=== PATIENT | male | born 1945 | race Caucasian/White ===

== ENCOUNTER 2018-06-28 19:00 | Inpatient (IN) | payer MEDICAID, MEDICARE, OTHER ==
[~2018-06-28] VITALS: Ht 175.3 cm; Wt 82.3 kg
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
--- NOTE | 2018-06-28 19:34 | RAD ---
CT scan of the head without contrast 06/28/2018 Clinical History: Mental status changes and confusion. Technique: Unenhanced, contiguous, 5 mm axial sections were obtained through the head. One or more of the following individualized dose reduction techniques were utilized for this study: 1. Automated exposure control. 2. Adjustment of the mA and/or kV according to patient size. 3. Use of iterative reconstruction technique. Findings: No previous imaging studies are available for comparison. A left parietal ventriculostomy tube is seen with its tip extending to the left lateral ventricle There is generalized parenchymal atrophy. Areas of decreased attenuation are seen within the periventricular and subcortical white matter of both cerebral hemispheres consistent with areas of small vessel ischemic disease. No acute parenchymal abnormality is seen. No extra-axial fluid collection is noted. No skull fracture is seen. Impression: No acute intracranial abnormality is seen. Electronically signed by: Fernando Ruggiero MD (06/28/2018 7:30 PM) [facility]
--- NOTE | 2018-06-28 19:38 | EKG ---
[address] [address] Test Date: 2018-06-28 Test Time: 19:33:11 Pat Name: ARIAS JUAREZ Department: Room: Gender: M [employer]binder: : 1945 Requested By: RONN CLAYTON Order Number: [id number] Reading MD: Yann Zurita MD Measurements Intervals [place] Rate: 60 P: 49 NV: 154 QRS: -10 QRSD: 104 T: 36 QT: 410 QTc: 410 Interpretive Statements SINUS RHYTHM Electronically Signed On 06-29-2018 10:36:07 CDT by Yann Zurita MD
[2018-06-28 19:57] LABS: AMPHETAMINE/METHAMPHETAMINE NEG (NEG); BARBITURATES NEG (NEG); BENZODIAZEPINES NEG (NEG); CANNABINOIDS NEG (NEG); COCAINE NEG (NEG); METHADONE NEG (NEG); OPIATES NEG (NEG); PHENCYCLIDINE NEG (NEG)
[2018-06-28 20:00] LABS: BACTERIA,URINE 0 /HPF (0-FEW); BILIRUBIN,URINE NEG (NEG); CLARITY,URINE CLEAR; COLOR,URINE YELLOW; GLUCOSE,URINE NEG (NEG); NITRITE,URINE NEG (NEG); RBC,URINE 0 /HPF (0-2); SQUAMOUS EPITHELIAL CELL,UR OCC /LPF; UROBILINOGEN,URINE 0.2 mg/dL (0.2 mg/dL)
[2018-06-28 20:41] LABS: ALBUMIN 3.5 g/dL (3.4-5.0); CALCIUM 9.3 mg/dL (8.5-10.1); CREATININE 0.9 mg/dL (0.7-1.3); DIRECT BILIRUBIN 0.1 mg/dL (0.0-0.2); GFR 82.3; MAGNESIUM 2.4 mg/dL (1.8-2.4); POTASSIUM 4.8 mmol/L (3.5-5.1); TOTAL BILIRUBIN 0.4 mg/dL (0.2-1.0); TOTAL PROTEIN 7.9 g/dL (6.4-8.2)
[2018-06-28 21:37] LABS: BASO % 1 % (0-3); EOS # 0.1 x10^3/uL (0.0-0.7); EOS % 2 % (0-3); HEMATOCRIT 44.5 % (39.0-53.0); HEMOGLOBIN 14.9 g/dL (13.0-17.5); LYMPH # 1.6 x10^3/uL (1.0-4.8); LYMPH % 26 % (24-48); MEAN CORPUSCULAR HEMOGLOBIN 30 pg (25-35); MEAN CORPUSCULAR HGB CONC 34 g/dL (31-37); MEAN CORPUSCULAR VOLUME 89 fL (79-100); MONO # 0.7 x10^3/uL (0.0-1.1); MONO % 12 % (0-9); NEUT # 3.6 x10^3uL (1.8-7.7); NEUT % 59 % (31-73); PLATELET COUNT 151 x10^3/uL (140-400); RED BLOOD COUNT 5.03 x10^6/uL (4.30-5.70); RED CELL DISTRIBUTION WIDTH 14.8 % (11.5-14.5)
[2018-06-28] MEDS ORDERED: SMZ/TMP 800/160MG TABLET. PO ONE (22:15)
[2018-06-28] MEDS: levoFLOXacin 500 MG TABLET PO SCH (22:30)
[2018-06-28 22:39] LABS: SEDIMENTATION RATE 29 (0-15)
[2018-06-28] MEDS ORDERED: MAGNESIUM HYDROXIDE 2,400 MG/30 ML ORAL.SUSP. PO PRN (22:45)
[2018-06-28] MEDS ORDERED: MAG HYDROX/AL HYDROX/SIMETH 30 ML ORAL.SUSP PO PRN (22:45)
[2018-06-28] MEDS ORDERED: METHYL SALICYLATE/MENTHOL TOPICAL OINTMENT 29GM TUBE. TP PRN (22:45)
[2018-06-28] MEDS ORDERED: ACETAMINOPHEN 325 MG TABLET PO PRN ×2 (22:45→23:30)
[2018-06-28 23:14] LABS: VAL ACID 5 mcg/mL (50-100)
[2018-06-28] MEDS ORDERED: OMEG-33 PO (23:19)
[2018-06-28] MEDS ORDERED: FOLI0.8T33 PO (23:19)
[2018-06-28] MEDS ORDERED: DIVA125C2 PO (23:19)
[2018-06-28] MEDS ORDERED: ASPI325T8 PO (23:19)
[2018-06-28] MEDS ORDERED: ACET325T16 PO (23:19)
[2018-06-28] MEDS ORDERED: ESCITALOPRAM OX20 MG PO (23:19)
[2018-06-28] MEDS ORDERED: LISI10TA2 PO (23:19)
[2018-06-28] MEDS ORDERED: CHOL200027 PO (23:19)
[2018-06-28] MEDS ORDERED: MEMA10TA PO (23:19)
[2018-06-28] MEDS ORDERED: ASCO-72 PO (23:19)
[2018-06-28] MEDS ORDERED: CLON1TAB4 PO (23:19)
[2018-06-28 23:29] VITALS: BP 134/80
--- NOTE | 2018-06-28 23:51 | RAD ---
AP portable chest radiograph 06/28/2018 Clinical History: Weakness and shortness of breath. An AP erect portable digital radiograph of the chest was obtained. No previous studies are available for comparison. The cardiac silhouette is mildly enlarged. The thoracic aorta is mildly tortuous. No acute pulmonary infiltrate is seen. No pleural effusion or pneumothorax is noted. Degenerative changes are seen involving the thoracic spine. IMPRESSION: No acute abnormality is seen. Electronically signed by: Fernando Ruggiero MD (06/28/2018 11:47 PM) [facility]
[2018-06-29 05:32] VITALS: BP 129/74
[2018-06-29 07:13] LABS: BASO % 1 % (0-3); EOS # 0.1 x10^3/uL (0.0-0.7); EOS % 1 % (0-3); HEMATOCRIT 44.2 % (39.0-53.0); LYMPH # 1.3 x10^3/uL (1.0-4.8); LYMPH % 17 % (24-48); MEAN CORPUSCULAR HEMOGLOBIN 30 pg (25-35); MEAN CORPUSCULAR HGB CONC 34 g/dL (31-37); MEAN CORPUSCULAR VOLUME 88 fL (79-100); MONO # 0.9 x10^3/uL (0.0-1.1); MONO % 12 % (0-9); NEUT # 5.3 x10^3uL (1.8-7.7); NEUT % 70 % (31-73); PLATELET COUNT 136 x10^3/uL (140-400); RED BLOOD COUNT 5.03 x10^6/uL (4.30-5.70); RED CELL DISTRIBUTION WIDTH 14.6 % (11.5-14.5); WHITE BLOOD COUNT 7.6 x10^3/uL (4.0-11.0)
[2018-06-29 07:31] LABS: CALCIUM 9.6 mg/dL (8.5-10.1); CREATININE 0.9 mg/dL (0.7-1.3); GFR 82.3
[2018-06-29 07:33] LABS: POTASSIUM 4.7 mmol/L (3.5-5.1)
[2018-06-29] MEDS: ASPIRIN 325 MG TABLET PO SCH (07:44)
[2018-06-29] MEDS: levoFLOXacin 500 MG TABLET PO SCH (07:45)
[2018-06-29] MEDS: LISINOPRIL 10 MG TABLET PO SCH (07:45)
[2018-06-29] MEDS: clonazePAM 1 MG TABLET PO SCH ×3 (07:45→20:46)
[2018-06-29] MEDS: CITALOPRAM 20 MG TABLET. PO SCH (07:45)
[2018-06-29] MEDS: OMEGA-3 FATTY ACIDS/FISH OIL 1,000 MG CAPSULE. PO SCH ×2 (07:45→20:45)
[2018-06-29] MEDS: MEMANTINE 10 MG TABLET. PO SCH ×2 (07:45→20:45)
[2018-06-29] MEDS: CHOLECALCIFEROL (VITAMIN D3) 1,000 UNIT TABLET PO SCH (07:45)
[2018-06-29] MEDS: ASCORBIC ACID 500 MG TABLET PO SCH (07:48)
[2018-06-29] MEDS: FOLIC/VIT B COMP W-C (RENAL) TABLET. PO SCH (09:00)
[2018-06-29 15:55] VITALS: BP 140/83
--- NOTE | 2018-06-29 20:43 | PDOC ---
Exam Note: Antony Note: Please also refer to the separate dictated note~for this date of service dictated separately.~Patient seen individually. Discussed the patient with Nursing staff reviewed the chart.~Reviewed interim history and current functioning. Reviewed vital signs,~Labs/ Radiology~and current medications noted below. Continue current treatment with the changes noted in the dictated addendum note Assessment: Vital Signs: Vital Signs Date Time Temp Pulse Resp B/P (MAP) Pulse Ox O2 Delivery O2 Flow Rate FiO2 06/29/18 15:55 98.9 88 20 140/83 (102) 92 Room Air I&O Intake and Output 06/29/18 07:00 # Voids 3 Labs: Laboratory Tests Test 06/28/18 21:15 06/29/18 06:50 06/29/18 19:39 White Blood Count 6.0 x10^3/uL (4.0-11.0) 7.6 x10^3/uL (4.0-11.0) Red Blood Count 5.03 x10^6/uL (4.30-5.70) 5.03 x10^6/uL (4.30-5.70) Hemoglobin 14.9 g/dL (13.0-17.5) 15.0 g/dL (13.0-17.5) Hematocrit 44.5 % (39.0-53.0) 44.2 % (39.0-53.0) Mean Corpuscular Volume 89 fL (79-100) 88 fL (79-100) Mean Corpuscular Hemoglobin 30 pg (25-35) 30 pg (25-35) Mean Corpuscular Hemoglobin Concent 34 g/dL (31-37) 34 g/dL (31-37) Red Cell Distribution Width 14.8 % (11.5-14.5) H 14.6 % (11.5-14.5) H Platelet Count 151 x10^3/uL (140-400) 136 x10^3/uL (140-400) L Neutrophils (%) (Auto) 59 % (31-73) 70 % (31-73) Lymphocytes (%) (Auto) 26 % (24-48) 17 % (24-48) L Monocytes (%) (Auto) 12 % (0-9) H 12 % (0-9) H Eosinophils (%) (Auto) 2 % (0-3) 1 % (0-3) Basophils (%) (Auto) 1 % (0-3) 1 % (0-3) Neutrophils # (Auto) 3.6 x10^3uL (1.8-7.7) 5.3 x10^3uL (1.8-7.7) Lymphocytes # (Auto) 1.6 x10^3/uL (1.0-4.8) 1.3 x10^3/uL (1.0-4.8) Monocytes # (Auto) 0.7 x10^3/uL (0.0-1.1) 0.9 x10^3/uL (0.0-1.1) Eosinophils # (Auto) 0.1 x10^3/uL (0.0-0.7) 0.1 x10^3/uL (0.0-0.7) Basophils # (Auto) 0.0 x10^3/uL (0.0-0.2) 0.0 x10^3/uL (0.0-0.2) Erythrocyte Sedimentation Rate 29 (0-15) H Prothrombin Time 10.2 SEC (9.4-11.4) Prothrombin Time INR 1.0 (0.9-1.1) PTT 25 SEC (23-33) Iron Level 84 ug/dL (65-175) Total Iron Binding Capacity 360 ug/dL (250-450) Iron Saturation 23 % (15-34) Triglycerides Level 201 mg/dL (0-150) H Cholesterol Level 198 mg/dL (0-200) LDL Cholesterol, Calculated 120 mg/dL (0-100) H VLDL Cholesterol, Calculated 40 mg/dL (0-40) Non-HDL Cholesterol Calculated 160 mg/dL (0-129) H HDL Cholesterol 38 mg/dL (40-60) L Cholesterol/HDL Ratio 5.0 Vitamin B12 Level 26 pg/mL (247-911) L 25-Hydroxy Vitamin D Total 24.7 ng/mL (30-100) L Valproic Acid Level 5 mcg/mL (50-100) L Valproic Acid Last Dose Date 06/27/2018 Valproic Acid Last Dose Time 2100 Sodium Level 144 mmol/L (136-145) Potassium Level 4.7 mmol/L (3.5-5.1) Chloride Level 107 mmol/L (98-107) Carbon Dioxide Level 29 mmol/L (21-32) Anion Gap 8 (6-14) Blood Urea Nitrogen 19 mg/dL (8-26) Creatinine 0.9 mg/dL (0.7-1.3) Estimated GFR (Cockcroft-Gault) 82.3 Glucose Level 121 mg/dL (70-99) H Calcium Level 9.6 mg/dL (8.5-10.1) Glucose (Fingerstick) 177 mg/dL (70-99) H Current Medications: Meds: Current Medications Trimethoprim/ Sulfamethoxazole (Bactrim Ds) 1 tab 1X ONCE PO Last administered on 06/28/18at 22:04; Start 06/28/18 at 22:15; Stop 06/28/18 at 22:16 ; Status DC Levofloxacin (Levaquin) 500 mg DAILY PO Last administered on 06/29/18at 07:45; Start 06/28/18 at 22:30 Acetaminophen (Tylenol) 650 mg PRN Q6HRS PRN PO MILD PAIN / TEMP; Start at 22:45; Stop 06/28/18 at 23:49; Status DC Multi-Ingredient Ointment (Analgesic [place]) 1 heriberto PRN QID PRN TP MUSCLE PAIN; Start 06/28/18 at 22:45 Al Hydroxide/Mg Hydroxide (Mylanta Plus Xs) 15 ml PRN AFTMEALHC PRN PO DYSPEPSIA; Start 06/28/18 at 22:45 Magnesium Hydroxide (Milk Of Magnesia) 2,400 mg PRN QHS PRN PO CONSTIPATION; Start 06/28/18 at 22:45 Olanzapine (ZyPREXA ZYDIS) 2.5 mg PRN Q2HR PRN PO PSYCHOSIS Last administered on 06/29/18at 14:48; Start 06/28/18 at 23:30 Clonazepam (KlonoPIN) 1 mg TID PO Last administered on 06/29/18at 14:13; Start 06/29/18 at 09:00 Divalproex Sodium (Depakote Sprinkles) 125 mg QHS PO ; Start 06/29/18 at 21:00 Citalopram Hydrobromide (CeleXA) 40 mg DAILY PO Last administered on 06/29/18at 07:45; Start 06/29/18 at 09:00 Memantine (Namenda) 10 mg BID PO Last administered on 06/29/18at 07:45; Start 06/29/18 at 09:00 Acetaminophen (Tylenol) 650 mg PRN Q4HRS PRN PO PAIN; Start 06/28/18 at 23:30 Aspirin (Mili Aspirin) 325 mg DAILY PO Last administered on 06/29/18at 07:44; Start 06/29/18 at 09:00 Lisinopril (Prinivil) 10 mg DAILY PO Last administered on 06/29/18at 07:45; Start 06/29/18 at 09:00 Ascorbic Acid (Vitamin C) 500 mg DAILY PO Last administered on 06/29/18at 07:48 ; Start 06/29/18 at 09:00 Vitamin D (Vitamin D3) 2,000 unit DAILY PO Last administered on 06/29/18at 07:45 ; Start 06/29/18 at 09:00 Multivit/Ca Carb/ B Cmplx/FA/Prenat (Nephro-Abel) 1 tab DAILY PO ; Start at 09:00 Fish Oil (Fish Oil) 1,000 mg BID PO Last administered on 06/29/18at 07:45; Start 06/29/18 at 09:00 Lactobacillus Rhamnosus (Culturelle) 1 cap BID PO ; Start 06/29/18 at 21:00 Active Scripts Active Reported Mapap (Acetaminophen) 325 Mg Tablet 650 Mg PO PRN Q4HRS PRN Nephro-Abel Tablet (Folic Acid/Vitamin B Comp W-C) 0.8 Mg Tablet 0.4 Mg PO DAILY Clonazepam 1 Mg Tablet 1 Mg PO TID Depakote Sprinkle (Divalproex Sodium) 125 Mg Cap.sprink 125 Mg PO QHS Lisinopril 10 Mg Tablet 10 Mg PO DAILY Namenda (Memantine Hcl) 10 Mg Tablet 10 Mg PO BID [place] 3 1,000 Mg Softgel ([place]-3 Fatty Acids/Fish Oil) 1 Each Capsule 1 Each PO BID Escitalopram Oxalate 20 Mg Tablet 20 Mg PO DAILY Vitamin D3 (Cholecalciferol (Vitamin D3)) 2,000 Unit Tablet 2,000 Unit PO DAILY Aspirin 325 Mg Tablet 325 Mg PO DAILY Vitamin C (Ascorbic Acid) 500 Mg Tablet.er 500 Mg PO DAILY I have reviewed the current psychotropics carefully including drug interactions. Risk benefit ratio favors no change other than as noted in my dictated progress note. Diagnosis: Problems: (1) Change in mental status (2) Anxiety disorder (3) Dementia in Alzheimer's disease with delusions (4) Dementia in Alzheimer's disease with depression (5) Dementia, vascular, with delusions (6) Dementia, vascular, with depression (7) Impulse control disorder CARRIE RAHMAN MD Jun 29, 2018 20:43
[2018-06-29] MEDS: LACTOBACILLUS RHAMNOSUS GG 1 CAPSULE. PO SCH (20:46)
[2018-06-29] MEDS ORDERED: DIVALPROEX 125 MG CAP.SPRINK PO SCH (21:00)
[2018-06-29 23:12] LABS: HEMOGLOBIN A1C 6.6 % (4.8-5.6)
[2018-06-30 05:21] VITALS: BP 112/55
[2018-06-30 07:25] VITALS: BP 112/75
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
[2018-06-30] MEDS: ASPIRIN 325 MG TABLET PO SCH (10:43)
[2018-06-30] MEDS: CHOLECALCIFEROL (VITAMIN D3) 1,000 UNIT TABLET PO SCH (10:43)
[2018-06-30] MEDS: clonazePAM 1 MG TABLET PO SCH ×2 (10:43→14:02)
[2018-06-30] MEDS: OMEGA-3 FATTY ACIDS/FISH OIL 1,000 MG CAPSULE. PO SCH ×2 (10:43→19:39)
[2018-06-30] MEDS: ASCORBIC ACID 500 MG TABLET PO SCH (10:43)
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
[2018-06-30] MEDS: CITALOPRAM 20 MG TABLET. PO SCH (10:44)
[2018-06-30] MEDS: LACTOBACILLUS RHAMNOSUS GG 1 CAPSULE. PO SCH ×2 (10:44→19:38)
[2018-06-30] MEDS: MEMANTINE 10 MG TABLET. PO SCH ×2 (10:44→19:35)
[2018-06-30] MEDS: LISINOPRIL 10 MG TABLET PO SCH (10:44)
[2018-06-30] MEDS: levoFLOXacin 500 MG TABLET PO SCH (10:44)
[2018-06-30] MEDS: FOLIC/VIT B COMP W-C (RENAL) TABLET. PO SCH (10:46)
[2018-06-30 16:32] VITALS: BP 126/83
[2018-06-30] MEDS: DIVALPROEX 125 MG CAP.SPRINK PO SCH (19:38)
[2018-06-30] MEDS: clonazePAM 0.5 MG TABLET PO SCH (19:39)
--- NOTE | 2018-06-30 21:07 | PDOC ---
Exam Note: Antony Note: Please also refer to the separate dictated note~for this date of service dictated separately.~Patient seen individually. Discussed the patient with Nursing staff reviewed the chart.~Reviewed interim history and current functioning. Reviewed vital signs,~Labs/ Radiology~and current medications noted below. Continue current treatment with the changes noted in the dictated addendum note Assessment: Vital Signs: Vital Signs Date Time Temp Pulse Resp B/P (MAP) Pulse Ox O2 Delivery O2 Flow Rate FiO2 06/30/18 16:32 98.2 69 16 126/83 (97) 92 06/30/18 07:25 Room Air I&O Intake and Output 06/30/18 07:00 Intake Total 480 ml Balance 480 ml Intake Oral 480 ml # Voids 3 Current Medications: Meds: Current Medications Trimethoprim/ Sulfamethoxazole (Bactrim Ds) 1 tab 1X ONCE PO Last administered on 06/28/18at 22:04; Start 06/28/18 at 22:15; Stop 06/28/18 at 22:16 ; Status DC Levofloxacin (Levaquin) 500 mg DAILY PO Last administered on 06/30/18at 10:44; Start 06/28/18 at 22:30 Acetaminophen (Tylenol) 650 mg PRN Q6HRS PRN PO MILD PAIN / TEMP; Start at 22:45; Stop 06/28/18 at 23:49; Status DC Multi-Ingredient Ointment (Analgesic [place]) 1 heriberto PRN QID PRN TP MUSCLE PAIN; Start 06/28/18 at 22:45 Al Hydroxide/Mg Hydroxide (Mylanta Plus Xs) 15 ml PRN AFTMEALHC PRN PO DYSPEPSIA; Start 06/28/18 at 22:45 Magnesium Hydroxide (Milk Of Magnesia) 2,400 mg PRN QHS PRN PO CONSTIPATION; Start 06/28/18 at 22:45 Olanzapine (ZyPREXA ZYDIS) 2.5 mg PRN Q2HR PRN PO PSYCHOSIS Last administered on 06/29/18at 14:48; Start 06/28/18 at 23:30 Clonazepam (KlonoPIN) 1 mg TID PO Last administered on 06/30/18at 14:02; Start 06/29/18 at 09:00; Stop 06/30/18 at 16:48; Status DC Divalproex Sodium (Depakote Sprinkles) 125 mg QHS PO Last administered on 20:46; Start 06/29/18 at 21:00; Stop 06/30/18 at 16:35; Status DC Citalopram Hydrobromide (CeleXA) 40 mg DAILY PO Last administered on 06/30/18 10:44; Start 06/29/18 at 09:00 Memantine (Namenda) 10 mg BID PO Last administered on 06/30/18 19:35; Start 06/29/18 at 09:00 Acetaminophen (Tylenol) 650 mg PRN Q4HRS PRN PO PAIN; Start 06/28/18 at 23:30 Aspirin (Mili Aspirin) 325 mg DAILY PO Last administered on 06/30/18 10:43; Start 06/29/18 at 09:00 Lisinopril (Prinivil) 10 mg DAILY PO Last administered on 06/30/18 10:44; Start 06/29/18 at 09:00 Ascorbic Acid (Vitamin C) 500 mg DAILY PO Last administered on 06/30/18 10:43 ; Start 06/29/18 at 09:00 Vitamin D (Vitamin D3) 2,000 unit DAILY PO Last administered on 06/30/18 10:43 ; Start 06/29/18 at 09:00 Multivit/Ca Carb/ B Cmplx/FA/Prenat (Nephro-Abel) 1 tab DAILY PO Last administered on 06/30/18 10:46; Start 06/29/18 at 09:00 Fish Oil (Fish Oil) 1,000 mg BID PO Last administered on 06/30/18 10:43; Start 06/29/18 at 09:00 Lactobacillus Rhamnosus (Culturelle) 1 cap BID PO Last administered on 19:38; Start 06/29/18 at 21:00 Divalproex Sodium (Depakote Sprinkles) 250 mg QHS PO Last administered on 19:38; Start 06/30/18 at 21:00 Divalproex Sodium (Depakote Sprinkles) 250 mg DAILY PO ; Start 07/01/18 at 09:00 Clonazepam (KlonoPIN) 1 mg BID@0900,1300 PO ; Start 07/01/18 at 09:00 Clonazepam (KlonoPIN) 0.5 mg QHS PO Last administered on 06/30/18at 19:39; Start 06/30/18 at 21:00 Active Scripts Active Reported Mapap (Acetaminophen) 325 Mg Tablet 650 Mg PO PRN Q4HRS PRN Nephro-Abel Tablet (Folic Acid/Vitamin B Comp W-C) 0.8 Mg Tablet 0.4 Mg PO DAILY Clonazepam 1 Mg Tablet 1 Mg PO TID Depakote Sprinkle (Divalproex Sodium) 125 Mg Cap.sprink 125 Mg PO QHS Lisinopril 10 Mg Tablet 10 Mg PO DAILY Namenda (Memantine Hcl) 10 Mg Tablet 10 Mg PO BID [place] 3 1,000 Mg Softgel ([place]-3 Fatty Acids/Fish Oil) 1 Each Capsule 1 Each PO BID Escitalopram Oxalate 20 Mg Tablet 20 Mg PO DAILY Vitamin D3 (Cholecalciferol (Vitamin D3)) 2,000 Unit Tablet 2,000 Unit PO DAILY Aspirin 325 Mg Tablet 325 Mg PO DAILY Vitamin C (Ascorbic Acid) 500 Mg Tablet.er 500 Mg PO DAILY I have reviewed the current psychotropics carefully including drug interactions. Risk benefit ratio favors no change other than as noted in my dictated progress note. Diagnosis: Problems: (1) Change in mental status (2) Anxiety disorder (3) Dementia in Alzheimer's disease with delusions (4) Dementia in Alzheimer's disease with depression (5) Dementia, vascular, with delusions (6) Dementia, vascular, with depression (7) Impulse control disorder CARRIE RAHMAN MD Jun 30, 2018 21:07
[2018-07-01 05:52] VITALS: BP 148/69
[2018-07-01] MEDS ORDERED: clonazePAM 1 MG TABLET PO SCH (09:00)
[2018-07-01] MEDS: LISINOPRIL 10 MG TABLET PO SCH (09:43)
[2018-07-01] MEDS: CHOLECALCIFEROL (VITAMIN D3) 1,000 UNIT TABLET PO SCH (09:43)
[2018-07-01] MEDS: FOLIC/VIT B COMP W-C (RENAL) TABLET. PO SCH (09:43)
[2018-07-01] MEDS: OMEGA-3 FATTY ACIDS/FISH OIL 1,000 MG CAPSULE. PO SCH ×2 (09:43→19:37)
[2018-07-01] MEDS: ASCORBIC ACID 500 MG TABLET PO SCH (09:44)
[2018-07-01] MEDS: MEMANTINE 10 MG TABLET. PO SCH ×2 (09:44→19:37)
[2018-07-01] MEDS: ASPIRIN 325 MG TABLET PO SCH (09:44)
[2018-07-01] MEDS: CITALOPRAM 20 MG TABLET. PO SCH (09:44)
[2018-07-01] MEDS: levoFLOXacin 500 MG TABLET PO SCH (09:44)
[2018-07-01] MEDS: LACTOBACILLUS RHAMNOSUS GG 1 CAPSULE. PO SCH ×2 (09:44→19:37)
[2018-07-01] MEDS: DIVALPROEX 125 MG CAP.SPRINK PO SCH ×2 (09:46→19:38)
[2018-07-01] MEDS: clonazePAM 1 MG TABLET PO SCH (13:16)
[2018-07-01 15:41] VITALS: BP 105/67
[2018-07-01] MEDS: traZODone 50 MG TABLET. PO SCH (19:37)
[2018-07-01] MEDS: SERTRALINE 50 MG TABLET. PO SCH (19:37)
[2018-07-01] MEDS: clonazePAM 0.5 MG TABLET PO SCH (19:39)
--- NOTE | 2018-07-01 20:50 | PDOC ---
Exam Note: Antony Note: Please also refer to the separate dictated note~for this date of service dictated separately.~Patient seen individually. Discussed the patient with Nursing staff reviewed the chart.~Reviewed interim history and current functioning. Reviewed vital signs,~Labs/ Radiology~and current medications noted below. Continue current treatment with the changes noted in the dictated addendum note Assessment: Vital Signs: Vital Signs Date Time Temp Pulse Resp B/P (MAP) Pulse Ox O2 Delivery O2 Flow Rate FiO2 07/01/18 15:41 97.9 73 18 105/67 (80) 96 06/30/18 07:25 Room Air I&O Intake and Output 07/01/18 07:00 Intake Total 120 ml Balance 120 ml Intake Oral 120 ml # Voids 1 Current Medications: Meds: Current Medications Trimethoprim/ Sulfamethoxazole (Bactrim Ds) 1 tab 1X ONCE PO Last administered on 06/28/18at 22:04; Start 06/28/18 at 22:15; Stop 06/28/18 at 22:16 ; Status DC Levofloxacin (Levaquin) 500 mg DAILY PO Last administered on 07/01/18at 09:44; Start 06/28/18 at 22:30 Acetaminophen (Tylenol) 650 mg PRN Q6HRS PRN PO MILD PAIN / TEMP; Start at 22:45; Stop 06/28/18 at 23:49; Status DC Multi-Ingredient Ointment (Analgesic [place]) 1 heriberto PRN QID PRN TP MUSCLE PAIN; Start 06/28/18 at 22:45 Al Hydroxide/Mg Hydroxide (Mylanta Plus Xs) 15 ml PRN AFTMEALHC PRN PO DYSPEPSIA; Start 06/28/18 at 22:45 Magnesium Hydroxide (Milk Of Magnesia) 2,400 mg PRN QHS PRN PO CONSTIPATION; Start 06/28/18 at 22:45 Olanzapine (ZyPREXA ZYDIS) 2.5 mg PRN Q2HR PRN PO PSYCHOSIS Last administered on 06/29/18at 14:48; Start 06/28/18 at 23:30 Clonazepam (KlonoPIN) 1 mg TID PO Last administered on 06/30/18at 14:02; Start 06/29/18 at 09:00; Stop 06/30/18 at 16:48; Status DC Divalproex Sodium (Depakote Sprinkles) 125 mg QHS PO Last administered on 20:46; Start 06/29/18 at 21:00; Stop 06/30/18 at 16:35; Status DC Citalopram Hydrobromide (CeleXA) 40 mg DAILY PO Last administered on 07/01/18 09:44; Start 06/29/18 at 09:00; Stop 07/01/18 at 11:27; Status DC Memantine (Namenda) 10 mg BID PO Last administered on 07/01/18 19:37; Start 06/29/18 at 09:00 Acetaminophen (Tylenol) 650 mg PRN Q4HRS PRN PO PAIN; Start 06/28/18 at 23:30 Aspirin (Mili Aspirin) 325 mg DAILY PO Last administered on 07/01/18 09:44; Start 06/29/18 at 09:00 Lisinopril (Prinivil) 10 mg DAILY PO Last administered on 07/01/18 09:43; Start 06/29/18 at 09:00 Ascorbic Acid (Vitamin C) 500 mg DAILY PO Last administered on 07/01/18 09:44 ; Start 06/29/18 at 09:00 Vitamin D (Vitamin D3) 2,000 unit DAILY PO Last administered on 07/01/18 09:43 ; Start 06/29/18 at 09:00 Multivit/Ca Carb/ B Cmplx/FA/Prenat (Nephro-Abel) 1 tab DAILY PO Last administered on 07/01/18 09:43; Start 06/29/18 at 09:00 Fish Oil (Fish Oil) 1,000 mg BID PO Last administered on 07/01/18 19:37; Start 06/29/18 at 09:00 Lactobacillus Rhamnosus (Culturelle) 1 cap BID PO Last administered on 19:37; Start 06/29/18 at 21:00 Divalproex Sodium (Depakote Sprinkles) 250 mg QHS PO Last administered on 19:38; Start 06/30/18 at 21:00 Divalproex Sodium (Depakote Sprinkles) 250 mg DAILY PO Last administered on 09:46; Start 10/4/18 at 09:00 Clonazepam (KlonoPIN) 1 mg BID@0900,1300 PO Last administered on 07/01/18at 09: 46; Start 07/01/18 at 09:00; Stop 07/01/18 at 11:27; Status DC Clonazepam (KlonoPIN) 0.5 mg QHS PO Last administered on 07/01/18at 19:39; Start 06/30/18 at 21:00; Stop 07/10/18 at 09:00 Sertraline HCl (Zoloft) 50 mg QHS PO Last administered on 07/01/18at 19:37; Start 07/01/18 at 21:00 Clonazepam (KlonoPIN) 0.25 mg DAILY PO ; Start 07/03/18 at 21:00; Stop 07/05/18 at 21:00 Clonazepam (KlonoPIN) 1 mg DAILY@1300 PO Last administered on 07/01/18at 13:16; Start 07/01/18 at 13:00; Stop 07/05/18 at 21:00 Clonazepam (KlonoPIN) 0.5 mg DAILY PO ; Start 07/02/18 at 09:00; Stop 07/03/18 at 21:00 Clonazepam (KlonoPIN) 0.5 mg DAILY@1300 PO ; Start 07/06/18 at 13:00; Stop 07/15 at 21:00 Clonazepam (KlonoPIN) 0.25 mg DAILY@1300 PO ; Start 07/08/18 at 13:00; Stop at 21:00 Clonazepam (KlonoPIN) 0.25 mg HS PO ; Start 07/10/18 at 21:00; Stop 07/12/18 at 09:00 Trazodone HCl (Desyrel) 50 mg QHS PO Last administered on 07/01/18at 19:37; Start 07/01/18 at 21:00 Trazodone HCl (Desyrel) 50 mg PRN QHS PRN PO INSOMNIA; Start 07/01/18 at 11:00 Active Scripts Active Reported Mapap (Acetaminophen) 325 Mg Tablet 650 Mg PO PRN Q4HRS PRN Nephro-Abel Tablet (Folic Acid/Vitamin B Comp W-C) 0.8 Mg Tablet 0.4 Mg PO DAILY Clonazepam 1 Mg Tablet 1 Mg PO TID Depakote Sprinkle (Divalproex Sodium) 125 Mg Cap.sprink 125 Mg PO QHS Lisinopril 10 Mg Tablet 10 Mg PO DAILY Namenda (Memantine Hcl) 10 Mg Tablet 10 Mg PO BID [place] 3 1,000 Mg Softgel ([place]-3 Fatty Acids/Fish Oil) 1 Each Capsule 1 Each PO BID Escitalopram Oxalate 20 Mg Tablet 20 Mg PO DAILY Vitamin D3 (Cholecalciferol (Vitamin D3)) 2,000 Unit Tablet 2,000 Unit PO DAILY Aspirin 325 Mg Tablet 325 Mg PO DAILY Vitamin C (Ascorbic Acid) 500 Mg Tablet.er 500 Mg PO DAILY I have reviewed the current psychotropics carefully including drug interactions. Risk benefit ratio favors no change other than as noted in my dictated progress note. Diagnosis: Problems: (1) Change in mental status (2) Anxiety disorder (3) Dementia in Alzheimer's disease with delusions (4) Dementia in Alzheimer's disease with depression (5) Dementia, vascular, with delusions (6) Dementia, vascular, with depression (7) Impulse control disorder CARRIE RAHMAN MD Jul 01, 2018 20:50
[2018-07-02 05:44] VITALS: BP 106/59
[2018-07-02] MEDS: OMEGA-3 FATTY ACIDS/FISH OIL 1,000 MG CAPSULE. PO SCH ×2 (07:49→19:51)
[2018-07-02] MEDS: levoFLOXacin 500 MG TABLET PO SCH (07:49)
[2018-07-02] MEDS: ASCORBIC ACID 500 MG TABLET PO SCH (07:49)
[2018-07-02] MEDS: FOLIC/VIT B COMP W-C (RENAL) TABLET. PO SCH (07:50)
[2018-07-02] MEDS: ASPIRIN 325 MG TABLET PO SCH (07:50)
[2018-07-02] MEDS: LISINOPRIL 10 MG TABLET PO SCH (07:50)
[2018-07-02] MEDS: LACTOBACILLUS RHAMNOSUS GG 1 CAPSULE. PO SCH ×2 (07:50→19:52)
[2018-07-02] MEDS: CHOLECALCIFEROL (VITAMIN D3) 1,000 UNIT TABLET PO SCH (07:50)
[2018-07-02] MEDS: MEMANTINE 10 MG TABLET. PO SCH ×2 (07:52→19:51)
[2018-07-02] MEDS: DIVALPROEX 125 MG CAP.SPRINK PO SCH ×2 (07:52→19:52)
[2018-07-02] MEDS: clonazePAM 0.5 MG TABLET PO SCH ×2 (07:52→19:52)
[2018-07-02] MEDS: clonazePAM 1 MG TABLET PO SCH (13:04)
[2018-07-02 16:16] VITALS: BP 111/66
[2018-07-02] MEDS: SERTRALINE 50 MG TABLET. PO SCH (19:52)
[2018-07-02] MEDS: traZODone 50 MG TABLET. PO SCH (19:52)
--- NOTE | 2018-07-02 20:15 | PDOC ---
Exam Note: Antony Note: Please also refer to the separate dictated note~for this date of service dictated separately.~Patient seen individually. Discussed the patient with Nursing staff reviewed the chart.~Reviewed interim history and current functioning. Reviewed vital signs,~Labs/ Radiology~and current medications noted below. Continue current treatment with the changes noted in the dictated addendum note Assessment: Vital Signs: Vital Signs Date Time Temp Pulse Resp B/P (MAP) Pulse Ox O2 Delivery O2 Flow Rate FiO2 07/02/18 16:16 97.7 68 20 111/66 (81) 96 Room Air I&O Intake and Output 07/02/18 07:00 Intake Total 960 ml Balance 960 ml Intake Oral 960 ml Current Medications: Meds: Current Medications Trimethoprim/ Sulfamethoxazole (Bactrim Ds) 1 tab 1X ONCE PO Last administered on 06/28/18at 22:04; Start 06/28/18 at 22:15; Stop 06/28/18 at 22:16 ; Status DC Levofloxacin (Levaquin) 500 mg DAILY PO Last administered on 07/02/18at 07:49; Start 06/28/18 at 22:30; Stop 07/02/18 at 16:26; Status DC Acetaminophen (Tylenol) 650 mg PRN Q6HRS PRN PO MILD PAIN / TEMP; Start at 22:45; Stop 06/28/18 at 23:49; Status DC Multi-Ingredient Ointment (Analgesic [place]) 1 heriberto PRN QID PRN TP MUSCLE PAIN; Start 06/28/18 at 22:45 Al Hydroxide/Mg Hydroxide (Mylanta Plus Xs) 15 ml PRN AFTMEALHC PRN PO DYSPEPSIA; Start 06/28/18 at 22:45 Magnesium Hydroxide (Milk Of Magnesia) 2,400 mg PRN QHS PRN PO CONSTIPATION; Start 06/28/18 at 22:45 Olanzapine (ZyPREXA ZYDIS) 2.5 mg PRN Q2HR PRN PO PSYCHOSIS Last administered on 07/02/18at 20:11; Start 06/28/18 at 23:30 Clonazepam (KlonoPIN) 1 mg TID PO Last administered on 06/30/18at 14:02; Start 06/29/18 at 09:00; Stop 06/30/18 at 16:48; Status DC Divalproex Sodium (Depakote Sprinkles) 125 mg QHS PO Last administered on 20:46; Start 06/29/18 at 21:00; Stop 06/30/18 at 16:35; Status DC Citalopram Hydrobromide (CeleXA) 40 mg DAILY PO Last administered on 07/01/18 09:44; Start 06/29/18 at 09:00; Stop 07/01/18 at 11:27; Status DC Memantine (Namenda) 10 mg BID PO Last administered on 07/02/18 19:51; Start 06/29/18 at 09:00 Acetaminophen (Tylenol) 650 mg PRN Q4HRS PRN PO PAIN; Start 06/28/18 at 23:30 Aspirin (Mili Aspirin) 325 mg DAILY PO Last administered on 07/02/18 07:50; Start 06/29/18 at 09:00 Lisinopril (Prinivil) 10 mg DAILY PO Last administered on 07/01/18 09:43; Start 06/29/18 at 09:00 Ascorbic Acid (Vitamin C) 500 mg DAILY PO Last administered on 07/02/18 07:49 ; Start 06/29/18 at 09:00 Vitamin D (Vitamin D3) 2,000 unit DAILY PO Last administered on 07/02/18 07:50 ; Start 06/29/18 at 09:00 Multivit/Ca Carb/ B Cmplx/FA/Prenat (Nephro-Abel) 1 tab DAILY PO Last administered on 07/02/18 07:50; Start 06/29/18 at 09:00 Fish Oil (Fish Oil) 1,000 mg BID PO Last administered on 07/02/18 19:51; Start 06/29/18 at 09:00 Lactobacillus Rhamnosus (Culturelle) 1 cap BID PO Last administered on 19:52; Start 06/29/18 at 21:00 Divalproex Sodium (Depakote Sprinkles) 250 mg QHS PO Last administered on 19:52; Start 06/30/18 at 21:00 Divalproex Sodium (Depakote Sprinkles) 250 mg DAILY PO Last administered on 07:52; Start 07/01/18 at 09:00 Clonazepam (KlonoPIN) 1 mg BID@0900,1300 PO Last administered on 07/01/18at 09: 46; Start 07/01/18 at 09:00; Stop 07/01/18 at 11:27; Status DC Clonazepam (KlonoPIN) 0.5 mg QHS PO Last administered on 07/02/18at 19:52; Start 06/30/18 at 21:00; Stop 07/10/18 at 09:00 Sertraline HCl (Zoloft) 50 mg QHS PO Last administered on 07/02/18 19:52; Start 07/01/18 at 21:00 Clonazepam (KlonoPIN) 0.25 mg DAILY PO ; Start 07/03/18 at 21:00; Stop 07/05/18 at 21:00 Clonazepam (KlonoPIN) 1 mg DAILY@1300 PO Last administered on 07/02/18at 13:04; Start 07/01/18 at 13:00; Stop 07/05/18 at 21:00 Clonazepam (KlonoPIN) 0.5 mg DAILY PO Last administered on 07/02/18at 07:52; Start 07/02/18 at 09:00; Stop 07/03/18 at 21:00 Clonazepam (KlonoPIN) 0.5 mg DAILY@1300 PO ; Start 07/06/18 at 13:00; Stop 07/15 at 21:00 Clonazepam (KlonoPIN) 0.25 mg DAILY@1300 PO ; Start 07/08/18 at 13:00; Stop at 21:00 Clonazepam (KlonoPIN) 0.25 mg HS PO ; Start 07/10/18 at 21:00; Stop 07/12/18 at 09:00 Trazodone HCl (Desyrel) 50 mg QHS PO Last administered on 07/02/18 19:52; Start 07/01/18 at 21:00 Trazodone HCl (Desyrel) 50 mg PRN QHS PRN PO INSOMNIA; Start 07/01/18 at 11:00 Active Scripts Active Reported Mapap (Acetaminophen) 325 Mg Tablet 650 Mg PO PRN Q4HRS PRN Nephro-Abel Tablet (Folic Acid/Vitamin B Comp W-C) 0.8 Mg Tablet 0.4 Mg PO DAILY Clonazepam 1 Mg Tablet 1 Mg PO TID Depakote Sprinkle (Divalproex Sodium) 125 Mg Cap.sprink 125 Mg PO QHS Lisinopril 10 Mg Tablet 10 Mg PO DAILY Namenda (Memantine Hcl) 10 Mg Tablet 10 Mg PO BID [place] 3 1,000 Mg Softgel ([place]-3 Fatty Acids/Fish Oil) 1 Each Capsule 1 Each PO BID Escitalopram Oxalate 20 Mg Tablet 20 Mg PO DAILY Vitamin D3 (Cholecalciferol (Vitamin D3)) 2,000 Unit Tablet 2,000 Unit PO DAILY Aspirin 325 Mg Tablet 325 Mg PO DAILY Vitamin C (Ascorbic Acid) 500 Mg Tablet.er 500 Mg PO DAILY I have reviewed the current psychotropics carefully including drug interactions. Risk benefit ratio favors no change other than as noted in my dictated progress note. Diagnosis: Problems: (1) Change in mental status (2) Anxiety disorder (3) Dementia in Alzheimer's disease with delusions (4) Dementia in Alzheimer's disease with depression (5) Dementia, vascular, with delusions (6) Dementia, vascular, with depression (7) Impulse control disorder CARRIE RAHMAN MD Jul 02, 2018 20:15
--- NOTE | 2018-07-03 04:13 | PN ---
DATE: 07/01/2018 This is a late entry for 07/01/2018 covers elements not covered in my initial note. SUBJECTIVE: I met with the patient in the evening, staffed at a treatment team meeting with the entire team in the morning. The patient is sleeping about 6 hours last night, average 4 hours. His , Jazmín, attended the treatment team meeting in the morning. He has been somewhat impulsive. He has been taking the Klonopin 0.5 mg at bedtime for about 6 months and we will attempt to taper it in due course. UA is negative. REVIEW OF SYSTEMS: Ambulation impaired, in wheelchair. No CV, , pulmonary, eye, ENT system symptoms on review. MENTAL STATUS EXAM: Oriented to himself. Insight, judgment, recent and remote memory, attention, concentration, fund of knowledge poor, consistent with his diagnosis mentioned in my initial note. PLAN: Change Celexa 40 mg a day to Zoloft 50 mg a day. Start trazodone 50 mg at bedtime, may repeat x 1. Maintain Depakote 250 mg b.i.d. Check labs and valproic acid level on 07/03/2018. He remains on Klonopin 1 mg twice a day, 0.5 mg at bedtime and once we have a therapeutic level of Depakote, we will taper the Klonopin. Continue rest unchanged. MAN Ifeanyi RAHMAN MD DR: LEYLA/alexandra JOB#: [id number] / [id number]
[2018-07-03 05:50] VITALS: BP 145/91
[2018-07-03] MEDS: FOLIC/VIT B COMP W-C (RENAL) TABLET. PO SCH (08:05)
[2018-07-03] MEDS: CHOLECALCIFEROL (VITAMIN D3) 1,000 UNIT TABLET PO SCH (08:05)
[2018-07-03] MEDS: ASCORBIC ACID 500 MG TABLET PO SCH (08:05)
[2018-07-03] MEDS: LISINOPRIL 10 MG TABLET PO SCH (08:05)
[2018-07-03] MEDS: OMEGA-3 FATTY ACIDS/FISH OIL 1,000 MG CAPSULE. PO SCH ×2 (08:05→19:58)
[2018-07-03] MEDS: LACTOBACILLUS RHAMNOSUS GG 1 CAPSULE. PO SCH ×2 (08:05→19:58)
[2018-07-03] MEDS: MEMANTINE 10 MG TABLET. PO SCH ×2 (08:05→19:59)
[2018-07-03] MEDS: ASPIRIN 325 MG TABLET PO SCH (08:06)
[2018-07-03] MEDS: DIVALPROEX 125 MG CAP.SPRINK PO SCH ×2 (08:06→19:58)
[2018-07-03] MEDS: clonazePAM 0.5 MG TABLET PO SCH ×3 (08:07→20:01)
[2018-07-03] MEDS: clonazePAM 1 MG TABLET PO SCH (13:33)
[2018-07-03 15:45] VITALS: BP 107/74
[2018-07-03] MEDS: traZODone 50 MG TABLET. PO SCH (19:59)
[2018-07-03] MEDS: SERTRALINE 50 MG TABLET. PO SCH (19:59)
[2018-07-04 06:25] VITALS: BP 106/67
[2018-07-04 07:11] LABS: BASO % 0 % (0-3); EOS # 0.2 x10^3/uL (0.0-0.7); EOS % 3 % (0-3); HEMATOCRIT 41.3 % (39.0-53.0); HEMOGLOBIN 14.3 g/dL (13.0-17.5); LYMPH % 13 % (24-48); MEAN CORPUSCULAR HEMOGLOBIN 30 pg (25-35); MEAN CORPUSCULAR HGB CONC 35 g/dL (31-37); MEAN CORPUSCULAR VOLUME 88 fL (79-100); MONO # 0.8 x10^3/uL (0.0-1.1); MONO % 10 % (0-9); NEUT # 5.7 x10^3uL (1.8-7.7); NEUT % 74 % (31-73); PLATELET COUNT 150 x10^3/uL (140-400); RED BLOOD COUNT 4.72 x10^6/uL (4.30-5.70); RED CELL DISTRIBUTION WIDTH 14.6 % (11.5-14.5); WHITE BLOOD COUNT 7.7 x10^3/uL (4.0-11.0)
[2018-07-04 07:25] LABS: ALBUMIN 3.2 g/dL (3.4-5.0); ALBUMIN/GLOBULIN RATIO 0.8 (1.0-1.7); ALK PHOS 123 U/L (46-116); ALT (SGPT) 36 U/L (16-63); ANION GAP 4 (6-14); AST (SGOT) 27 U/L (15-37); BLOOD UREA NITROGEN 31 mg/dL (8-26); BUN/CREATININE RATIO 31 (6-20); CALCIUM 9.2 mg/dL (8.5-10.1); CARBON DIOXIDE 32 mmol/L (21-32); CHLORIDE 109 mmol/L (98-107); GFR 72.8; GLUCOSE 115 mg/dL (70-99); POTASSIUM 3.8 mmol/L (3.5-5.1); SODIUM 145 mmol/L (136-145); TOTAL BILIRUBIN 0.5 mg/dL (0.2-1.0); TOTAL PROTEIN 7.3 g/dL (6.4-8.2); VAL ACID 19 mcg/mL (50-100)
[2018-07-04] MEDS: DIVALPROEX 125 MG CAP.SPRINK PO SCH ×2 (07:51→19:57)
[2018-07-04] MEDS: CHOLECALCIFEROL (VITAMIN D3) 1,000 UNIT TABLET PO SCH (07:52)
[2018-07-04] MEDS: ASCORBIC ACID 500 MG TABLET PO SCH (07:52)
[2018-07-04] MEDS: OMEGA-3 FATTY ACIDS/FISH OIL 1,000 MG CAPSULE. PO SCH ×2 (07:52→19:55)
[2018-07-04] MEDS: ASPIRIN 325 MG TABLET PO SCH (07:52)
[2018-07-04] MEDS: LISINOPRIL 10 MG TABLET PO SCH (07:52)
[2018-07-04] MEDS: MEMANTINE 10 MG TABLET. PO SCH ×2 (07:52→19:58)
[2018-07-04] MEDS: LACTOBACILLUS RHAMNOSUS GG 1 CAPSULE. PO SCH ×2 (07:53→19:55)
[2018-07-04] MEDS: clonazePAM 0.5 MG TABLET PO SCH ×2 (07:57→19:57)
[2018-07-04] MEDS: FOLIC/VIT B COMP W-C (RENAL) TABLET. PO SCH ×2 (07:58→09:00)
[2018-07-04] MEDS: clonazePAM 1 MG TABLET PO SCH (13:46)
[2018-07-04 15:21] VITALS: BP 125/73
[2018-07-04] MEDS: SERTRALINE 50 MG TABLET. PO SCH (19:57)
[2018-07-04] MEDS: traZODone 50 MG TABLET. PO SCH (19:57)
--- NOTE | 2018-07-04 20:12 | PDOC ---
Exam Note: Antony Note: Late entry for date of service June. Please also refer to the separate dictated note~for this date of service dictated separately.~Patient seen individually. Discussed the patient with Nursing staff reviewed the chart.~ Reviewed interim history and current functioning. Reviewed vital signs,~Labs/ Radiology~and current medications noted below. Continue current treatment with the changes noted in the dictated addendum note Assessment: Vital Signs: VS - Last 72 Hours, by Label Date Time Temp Pulse Resp B/P (MAP) Pulse Ox O2 Delivery O2 Flow Rate FiO2 07/04/18 15:21 97.8 73 18 125/73 (90) 96 07/04/18 07:52 66 106/67 07/04/18 06:25 97.8 66 18 106/67 (80) 94 Room Air 07/03/18 15:45 97.4 77 20 107/74 (85) 97 07/03/18 08:05 54 145/91 07/03/18 05:50 96.4 54 18 145/91 (109) 93 Room Air 07/02/18 16:16 97.7 68 20 111/66 (81) 96 Room Air 07/02/18 05:44 97.7 63 22 106/59 (75) 90 Room Air Vital Signs Date Time Temp Pulse Resp B/P (MAP) Pulse Ox O2 Delivery O2 Flow Rate FiO2 07/04/18 15:21 97.8 73 18 125/73 (90) 96 07/04/18 06:25 Room Air I&O Intake and Output 07/04/18 06:59 Intake Total 220 ml Balance 220 ml Intake Oral 220 ml Labs: Laboratory Tests Test 07/04/18 07:03 White Blood Count 7.7 x10^3/uL (4.0-11.0) Red Blood Count 4.72 x10^6/uL (4.30-5.70) Hemoglobin 14.3 g/dL (13.0-17.5) Hematocrit 41.3 % (39.0-53.0) Mean Corpuscular Volume 88 fL (79-100) Mean Corpuscular Hemoglobin 30 pg (25-35) Mean Corpuscular Hemoglobin Concent 35 g/dL (31-37) Red Cell Distribution Width 14.6 % (11.5-14.5) H Platelet Count 150 x10^3/uL (140-400) Neutrophils (%) (Auto) 74 % (31-73) H Lymphocytes (%) (Auto) 13 % (24-48) L Monocytes (%) (Auto) 10 % (0-9) H Eosinophils (%) (Auto) 3 % (0-3) Basophils (%) (Auto) 0 % (0-3) Neutrophils # (Auto) 5.7 x10^3uL (1.8-7.7) Lymphocytes # (Auto) 1.0 x10^3/uL (1.0-4.8) Monocytes # (Auto) 0.8 x10^3/uL (0.0-1.1) Eosinophils # (Auto) 0.2 x10^3/uL (0.0-0.7) Basophils # (Auto) 0.0 x10^3/uL (0.0-0.2) Sodium Level 145 mmol/L (136-145) Potassium Level 3.8 mmol/L (3.5-5.1) Chloride Level 109 mmol/L (98-107) H Carbon Dioxide Level 32 mmol/L (21-32) Anion Gap 4 (6-14) L Blood Urea Nitrogen 31 mg/dL (8-26) H Creatinine 1.0 mg/dL (0.7-1.3) Estimated GFR (Cockcroft-Gault) 72.8 BUN/Creatinine Ratio 31 (6-20) H Glucose Level 115 mg/dL (70-99) H Calcium Level 9.2 mg/dL (8.5-10.1) Total Bilirubin 0.5 mg/dL (0.2-1.0) Aspartate Amino Transferase (AST) 27 U/L (15-37) Alanine Aminotransferase (ALT) 36 U/L (16-63) Alkaline Phosphatase 123 U/L (46-116) H Total Protein 7.3 g/dL (6.4-8.2) Albumin 3.2 g/dL (3.4-5.0) L Albumin/Globulin Ratio 0.8 (1.0-1.7) L Valproic Acid Level 19 mcg/mL (50-100) L Valproic Acid Last Dose Date Unk Valproic Acid Last Dose Time Unk Current Medications: Meds: Current Medications Trimethoprim/ Sulfamethoxazole (Bactrim Ds) 1 tab 1X ONCE PO Last administered on 06/28/18at 22:04; Start 06/28/18 at 22:15; Stop 06/28/18 at 22:16 ; Status DC Levofloxacin (Levaquin) 500 mg DAILY PO Last administered on 07/02/18at 07:49; Start 06/28/18 at 22:30; Stop 07/02/18 at 16:26; Status DC Acetaminophen (Tylenol) 650 mg PRN Q6HRS PRN PO MILD PAIN / TEMP; Start at 22:45; Stop 06/28/18 at 23:49; Status DC Multi-Ingredient Ointment (Analgesic [place]) 1 heriberto PRN QID PRN TP MUSCLE PAIN; Start 06/28/18 at 22:45 Al Hydroxide/Mg Hydroxide (Mylanta Plus Xs) 15 ml PRN AFTMEALHC PRN PO DYSPEPSIA; Start 06/28/18 at 22:45 Magnesium Hydroxide (Milk Of Magnesia) 2,400 mg PRN QHS PRN PO CONSTIPATION; Start 06/28/18 at 22:45 Olanzapine (ZyPREXA ZYDIS) 2.5 mg PRN Q2HR PRN PO PSYCHOSIS Last administered on 07/04/18at 01:01; Start 06/28/18 at 23:30 Clonazepam (KlonoPIN) 1 mg TID PO Last administered on 06/30/18at 14:02; Start 06/29/18 at 09:00; Stop 06/30/18 at 16:48; Status DC Divalproex Sodium (Depakote Sprinkles) 125 mg QHS PO Last administered on at 20:46; Start 06/29/18 at 21:00; Stop 06/30/18 at 16:35; Status DC Citalopram Hydrobromide (CeleXA) 40 mg DAILY PO Last administered on 07/01/18at 09:44; Start 06/29/18 at 09:00; Stop 07/01/18 at 11:27; Status DC Memantine (Namenda) 10 mg BID PO Last administered on 07/04/18at 19:58; Start 06/29/18 at 09:00 Acetaminophen (Tylenol) 650 mg PRN Q4HRS PRN PO PAIN; Start 06/28/18 at 23:30 Aspirin (Mili Aspirin) 325 mg DAILY PO Last administered on 07/04/18 07:52; Start 06/29/18 at 09:00 Lisinopril (Prinivil) 10 mg DAILY PO Last administered on 07/04/18 07:52; Start 06/29/18 at 09:00 Ascorbic Acid (Vitamin C) 500 mg DAILY PO Last administered on 07/04/18 07:52 ; Start 06/29/18 at 09:00 Vitamin D (Vitamin D3) 2,000 unit DAILY PO Last administered on 07/04/18 07:52 ; Start 06/29/18 at 09:00 Multivit/Ca Carb/ B Cmplx/FA/Prenat (Nephro-Abel) 1 tab DAILY PO Last administered on 07/04/18 09:00; Start 06/29/18 at 09:00 Fish Oil (Fish Oil) 1,000 mg BID PO Last administered on 07/04/18 19:55; Start 06/29/18 at 09:00 Lactobacillus Rhamnosus (Culturelle) 1 cap BID PO Last administered on 19:55; Start 06/29/18 at 21:00 Divalproex Sodium (Depakote Sprinkles) 250 mg QHS PO Last administered on 19:57; Start 06/30/18 at 21:00 Divalproex Sodium (Depakote Sprinkles) 250 mg DAILY PO Last administered on 07:51; Start 07/01/18 at 09:00 Clonazepam (KlonoPIN) 1 mg BID@0900,1300 PO Last administered on 07/01/18 09: 46; Start 07/01/18 at 09:00; Stop 07/01/18 at 11:27; Status DC Clonazepam (KlonoPIN) 0.5 mg QHS PO Last administered on 07/04/18 19:57; Start 06/30/18 at 21:00; Stop 07/10/18 at 09:00 Sertraline HCl (Zoloft) 50 mg QHS PO Last administered on 07/04/18 19:57; Start 07/01/18 at 21:00 Clonazepam (KlonoPIN) 0.25 mg DAILY PO Last administered on 07/04/18 07:57; Start 07/03/18 at 21:00; Stop 07/05/18 at 21:00 Clonazepam (KlonoPIN) 1 mg DAILY@1300 PO Last administered on 07/04/18at 13:46; Start 07/01/18 at 13:00; Stop 07/05/18 at 21:00 Clonazepam (KlonoPIN) 0.5 mg DAILY PO Last administered on 07/03/18at 08:07; Start 07/02/18 at 09:00; Stop 07/03/18 at 21:00; Status DC Clonazepam (KlonoPIN) 0.5 mg DAILY@1300 PO ; Start 07/06/18 at 13:00; Stop 07/15 at 21:00 Clonazepam (KlonoPIN) 0.25 mg DAILY@1300 PO ; Start 07/08/18 at 13:00; Stop at 21:00 Clonazepam (KlonoPIN) 0.25 mg HS PO ; Start 07/10/18 at 21:00; Stop 07/12/18 at 09:00 Trazodone HCl (Desyrel) 50 mg QHS PO Last administered on 07/04/18at 19:57; Start 07/01/18 at 21:00 Trazodone HCl (Desyrel) 50 mg PRN QHS PRN PO INSOMNIA; Start 07/01/18 at 11:00 Active Scripts Active Reported Mapap (Acetaminophen) 325 Mg Tablet 650 Mg PO PRN Q4HRS PRN Nephro-Abel Tablet (Folic Acid/Vitamin B Comp W-C) 0.8 Mg Tablet 0.4 Mg PO DAILY Clonazepam 1 Mg Tablet 1 Mg PO TID Depakote Sprinkle (Divalproex Sodium) 125 Mg Cap.sprink 125 Mg PO QHS Lisinopril 10 Mg Tablet 10 Mg PO DAILY Namenda (Memantine Hcl) 10 Mg Tablet 10 Mg PO BID [place] 3 1,000 Mg Softgel ([place]-3 Fatty Acids/Fish Oil) 1 Each Capsule 1 Each PO BID Escitalopram Oxalate 20 Mg Tablet 20 Mg PO DAILY Vitamin D3 (Cholecalciferol (Vitamin D3)) 2,000 Unit Tablet 2,000 Unit PO DAILY Aspirin 325 Mg Tablet 325 Mg PO DAILY Vitamin C (Ascorbic Acid) 500 Mg Tablet.er 500 Mg PO DAILY I have reviewed the current psychotropics carefully including drug interactions. Risk benefit ratio favors no change other than as noted in my dictated progress note. Diagnosis: Problems: (1) Change in mental status (2) Anxiety disorder (3) Dementia in Alzheimer's disease with delusions (4) Dementia in Alzheimer's disease with depression (5) Dementia, vascular, with delusions (6) Dementia, vascular, with depression (7) Impulse control disorder CARRIE RAHMAN MD Jul 04, 2018 20:12
--- NOTE | 2018-07-04 20:13 | PDOC ---
Exam Note: Antony Note: Please also refer to the separate dictated note~for this date of service dictated separately.~Patient seen individually. Discussed the patient with Nursing staff reviewed the chart.~Reviewed interim history and current functioning. Reviewed vital signs,~Labs/ Radiology~and current medications noted below. Continue current treatment with the changes noted in the dictated addendum note Assessment: Vital Signs: Vital Signs Date Time Temp Pulse Resp B/P (MAP) Pulse Ox O2 Delivery O2 Flow Rate FiO2 07/04/18 15:21 97.8 73 18 125/73 (90) 96 07/04/18 06:25 Room Air I&O Intake and Output 07/04/18 06:59 Intake Total 220 ml Balance 220 ml Intake Oral 220 ml Labs: Laboratory Tests Test 07/04/18 07:03 White Blood Count 7.7 x10^3/uL (4.0-11.0) Red Blood Count 4.72 x10^6/uL (4.30-5.70) Hemoglobin 14.3 g/dL (13.0-17.5) Hematocrit 41.3 % (39.0-53.0) Mean Corpuscular Volume 88 fL (79-100) Mean Corpuscular Hemoglobin 30 pg (25-35) Mean Corpuscular Hemoglobin Concent 35 g/dL (31-37) Red Cell Distribution Width 14.6 % (11.5-14.5) H Platelet Count 150 x10^3/uL (140-400) Neutrophils (%) (Auto) 74 % (31-73) H Lymphocytes (%) (Auto) 13 % (24-48) L Monocytes (%) (Auto) 10 % (0-9) H Eosinophils (%) (Auto) 3 % (0-3) Basophils (%) (Auto) 0 % (0-3) Neutrophils # (Auto) 5.7 x10^3uL (1.8-7.7) Lymphocytes # (Auto) 1.0 x10^3/uL (1.0-4.8) Monocytes # (Auto) 0.8 x10^3/uL (0.0-1.1) Eosinophils # (Auto) 0.2 x10^3/uL (0.0-0.7) Basophils # (Auto) 0.0 x10^3/uL (0.0-0.2) Sodium Level 145 mmol/L (136-145) Potassium Level 3.8 mmol/L (3.5-5.1) Chloride Level 109 mmol/L (98-107) H Carbon Dioxide Level 32 mmol/L (21-32) Anion Gap 4 (6-14) L Blood Urea Nitrogen 31 mg/dL (8-26) H Creatinine 1.0 mg/dL (0.7-1.3) Estimated GFR (Cockcroft-Gault) 72.8 BUN/Creatinine Ratio 31 (6-20) H Glucose Level 115 mg/dL (70-99) H Calcium Level 9.2 mg/dL (8.5-10.1) Total Bilirubin 0.5 mg/dL (0.2-1.0) Aspartate Amino Transferase (AST) 27 U/L (15-37) Alanine Aminotransferase (ALT) 36 U/L (16-63) Alkaline Phosphatase 123 U/L (46-116) H Total Protein 7.3 g/dL (6.4-8.2) Albumin 3.2 g/dL (3.4-5.0) L Albumin/Globulin Ratio 0.8 (1.0-1.7) L Valproic Acid Level 19 mcg/mL (50-100) L Valproic Acid Last Dose Date Unk Valproic Acid Last Dose Time Unk Current Medications: Meds: Current Medications Trimethoprim/ Sulfamethoxazole (Bactrim Ds) 1 tab 1X ONCE PO Last administered on 06/28/18at 22:04; Start 06/28/18 at 22:15; Stop 06/28/18 at 22:16 ; Status DC Levofloxacin (Levaquin) 500 mg DAILY PO Last administered on 07/02/18at 07:49; Start 06/28/18 at 22:30; Stop 07/02/18 at 16:26; Status DC Acetaminophen (Tylenol) 650 mg PRN Q6HRS PRN PO MILD PAIN / TEMP; Start at 22:45; Stop 06/28/18 at 23:49; Status DC Multi-Ingredient Ointment (Analgesic [place]) 1 heriberto PRN QID PRN TP MUSCLE PAIN; Start 06/28/18 at 22:45 Al Hydroxide/Mg Hydroxide (Mylanta Plus Xs) 15 ml PRN AFTMEALHC PRN PO DYSPEPSIA; Start 06/28/18 at 22:45 Magnesium Hydroxide (Milk Of Magnesia) 2,400 mg PRN QHS PRN PO CONSTIPATION; Start 06/28/18 at 22:45 Olanzapine (ZyPREXA ZYDIS) 2.5 mg PRN Q2HR PRN PO PSYCHOSIS Last administered on 07/04/18at 01:01; Start 06/28/18 at 23:30 Clonazepam (KlonoPIN) 1 mg TID PO Last administered on 06/30/18at 14:02; Start 06/29/18 at 09:00; Stop 06/30/18 at 16:48; Status DC Divalproex Sodium (Depakote Sprinkles) 125 mg QHS PO Last administered on at 20:46; Start 06/29/18 at 21:00; Stop 06/30/18 at 16:35; Status DC Citalopram Hydrobromide (CeleXA) 40 mg DAILY PO Last administered on 07/01/18at 09:44; Start 06/29/18 at 09:00; Stop 07/01/18 at 11:27; Status DC Memantine (Namenda) 10 mg BID PO Last administered on 07/04/18at 19:58; Start 06/29/18 at 09:00 Acetaminophen (Tylenol) 650 mg PRN Q4HRS PRN PO PAIN; Start 06/28/18 at 23:30 Aspirin (Mili Aspirin) 325 mg DAILY PO Last administered on 07/04/18at 07:52; Start 06/29/18 at 09:00 Lisinopril (Prinivil) 10 mg DAILY PO Last administered on 07/04/18at 07:52; Start 06/29/18 at 09:00 Ascorbic Acid (Vitamin C) 500 mg DAILY PO Last administered on 07/04/18 07:52 ; Start 06/29/18 at 09:00 Vitamin D (Vitamin D3) 2,000 unit DAILY PO Last administered on 07/04/18at 07:52 ; Start 06/29/18 at 09:00 Multivit/Ca Carb/ B Cmplx/FA/Prenat (Nephro-Abel) 1 tab DAILY PO Last administered on 07/04/18at 09:00; Start 06/29/18 at 09:00 Fish Oil (Fish Oil) 1,000 mg BID PO Last administered on 07/04/18 19:55; Start 06/29/18 at 09:00 Lactobacillus Rhamnosus (Culturelle) 1 cap BID PO Last administered on 19:55; Start 06/29/18 at 21:00 Divalproex Sodium (Depakote Sprinkles) 250 mg QHS PO Last administered on 19:57; Start 06/30/18 at 21:00 Divalproex Sodium (Depakote Sprinkles) 250 mg DAILY PO Last administered on 07:51; Start 07/01/18 at 09:00 Clonazepam (KlonoPIN) 1 mg BID@0900,1300 PO Last administered on 07/01/18 09: 46; Start 07/01/18 at 09:00; Stop 07/01/18 at 11:27; Status DC Clonazepam (KlonoPIN) 0.5 mg QHS PO Last administered on 07/04/18 19:57; Start 06/30/18 at 21:00; Stop 07/10/18 at 09:00 Sertraline HCl (Zoloft) 50 mg QHS PO Last administered on 07/04/18 19:57; Start 07/01/18 at 21:00 Clonazepam (KlonoPIN) 0.25 mg DAILY PO Last administered on 07/04/18 07:57; Start 07/03/18 at 21:00; Stop 07/05/18 at 21:00 Clonazepam (KlonoPIN) 1 mg DAILY@1300 PO Last administered on 07/04/18 13:46; Start 07/01/18 at 13:00; Stop 07/05/18 at 21:00 Clonazepam (KlonoPIN) 0.5 mg DAILY PO Last administered on 07/03/18at 08:07; Start 07/02/18 at 09:00; Stop 07/03/18 at 21:00; Status DC Clonazepam (KlonoPIN) 0.5 mg DAILY@1300 PO ; Start 07/06/18 at 13:00; Stop 07/15 at 21:00 Clonazepam (KlonoPIN) 0.25 mg DAILY@1300 PO ; Start 07/08/18 at 13:00; Stop at 21:00 Clonazepam (KlonoPIN) 0.25 mg HS PO ; Start 07/10/18 at 21:00; Stop 07/12/18 at 09:00 Trazodone HCl (Desyrel) 50 mg QHS PO Last administered on 07/04/18at 19:57; Start 07/01/18 at 21:00 Trazodone HCl (Desyrel) 50 mg PRN QHS PRN PO INSOMNIA; Start 07/01/18 at 11:00 Active Scripts Active Reported Mapap (Acetaminophen) 325 Mg Tablet 650 Mg PO PRN Q4HRS PRN Nephro-Abel Tablet (Folic Acid/Vitamin B Comp W-C) 0.8 Mg Tablet 0.4 Mg PO DAILY Clonazepam 1 Mg Tablet 1 Mg PO TID Depakote Sprinkle (Divalproex Sodium) 125 Mg Cap.sprink 125 Mg PO QHS Lisinopril 10 Mg Tablet 10 Mg PO DAILY Namenda (Memantine Hcl) 10 Mg Tablet 10 Mg PO BID [place] 3 1,000 Mg Softgel ([place]-3 Fatty Acids/Fish Oil) 1 Each Capsule 1 Each PO BID Escitalopram Oxalate 20 Mg Tablet 20 Mg PO DAILY Vitamin D3 (Cholecalciferol (Vitamin D3)) 2,000 Unit Tablet 2,000 Unit PO DAILY Aspirin 325 Mg Tablet 325 Mg PO DAILY Vitamin C (Ascorbic Acid) 500 Mg Tablet.er 500 Mg PO DAILY I have reviewed the current psychotropics carefully including drug interactions. Risk benefit ratio favors no change other than as noted in my dictated progress note. Diagnosis: Problems: (1) Change in mental status (2) Anxiety disorder (3) Dementia in Alzheimer's disease with delusions (4) Dementia in Alzheimer's disease with depression (5) Dementia, vascular, with delusions (6) Dementia, vascular, with depression (7) Impulse control disorder CARRIE RAHMAN MD Jul 04, 2018 20:12
--- NOTE | 2018-07-04 23:59 | PN ---
DATE: 07/02/2018 This is a late entry for 07/02/2018 and covers elements not covered in my initial note. SUBJECTIVE: I met with the patient in the evening. The patient remains confused, slept 7 hours previous evening, compliant with medications, walked with physical therapy; stands, sits bent over , not combative. REVIEW OF SYSTEMS: Ambulation impaired, in wheelchair. No CV, , pulmonary, eye, ENT system symptoms on review. Reliability poor. MENTAL STATUS EXAM: Oriented to himself. Insight, judgment, recent and remote memory, attention, concentration, fund of knowledge poor, consistent with his diagnosis as mentioned in my initial note including urinary tract infection. PLAN: Continue psychotropics from initial note. MAN Ifeanyi RAHMAN MD DR: LEYLA/alexandra JOB#: [id number] / [id number]
--- NOTE | 2018-07-05 02:19 | PN ---
DATE: 07/03/2018 SUBJECTIVE: This is a late entry for 07/03/2018 and covers the elements not covered in my initial note. SUBJECTIVE: I met with the patient in the evening. The patient slept 3-1/2 hours previous night, had bad night, had a good day on 07/03/2018, had to have his p.r.n. syringed x 2, but had to be in quiet room on the floor overnight. REVIEW OF SYSTEMS: No CV, , pulmonary, eye, ENT system symptoms on review. Gait unsteady, in wheelchair. MENTAL STATUS EXAM: Oriented to himself. Insight, judgment, recent and remote memory, attention, concentration, fund of knowledge poor, consistent with his diagnosis as mentioned in my initial note. PLAN: No change from initial note. MAN Ifeanyi RAHMAN MD DR: LEYLA/alexandra JOB#: [id number] / [id number]
--- NOTE | 2018-07-05 02:23 | PN ---
DATE: 07/04/2018 This note covers elements not covered in my initial note of 07/04/2018. SUBJECTIVE: The patient slept just 2-1/2 hours previous evening. During the day, he has done better. He has been having trouble sleeping at night despite the trazodone, resistive at night. REVIEW OF SYSTEMS: No CV, , pulmonary, eye, ENT system symptoms on review. Gait unsteady, in wheelchair. MENTAL STATUS EXAM: Oriented to himself. Insight, judgment, recent and remote memory, attention, concentration, fund of knowledge poor, consistent with his diagnosis as mentioned in my initial note. PLAN: No change from initial note. MAN Ifeanyi RAHMAN MD DR: LEYLA/alexandra JOB#: [id number] / [id number]
[2018-07-05 05:48] VITALS: BP 110/72
[2018-07-05] MEDS: OMEGA-3 FATTY ACIDS/FISH OIL 1,000 MG CAPSULE. PO SCH ×3 (08:16→21:00)
[2018-07-05] MEDS: LACTOBACILLUS RHAMNOSUS GG 1 CAPSULE. PO SCH ×3 (08:16→21:00)
[2018-07-05] MEDS: FOLIC/VIT B COMP W-C (RENAL) TABLET. PO SCH (08:16)
[2018-07-05] MEDS: ASPIRIN 325 MG TABLET PO SCH (08:16)
[2018-07-05] MEDS: ASCORBIC ACID 500 MG TABLET PO SCH (08:17)
[2018-07-05] MEDS: LISINOPRIL 10 MG TABLET PO SCH (08:17)
[2018-07-05] MEDS: MEMANTINE 10 MG TABLET. PO SCH ×3 (08:17→21:00)
[2018-07-05] MEDS: DIVALPROEX 125 MG CAP.SPRINK PO SCH ×3 (08:17→21:00)
[2018-07-05] MEDS: CHOLECALCIFEROL (VITAMIN D3) 1,000 UNIT TABLET PO SCH (08:18)
[2018-07-05] MEDS: clonazePAM 0.5 MG TABLET PO SCH ×2 (08:20→19:25)
[2018-07-05] MEDS: clonazePAM 1 MG TABLET PO SCH (13:44)
[2018-07-05 15:49] VITALS: BP 119/68
[2018-07-05] MEDS: traZODone 50 MG TABLET. PO SCH (19:22)
[2018-07-05] MEDS: SERTRALINE 50 MG TABLET. PO SCH (19:24)
--- NOTE | 2018-07-05 20:49 | PDOC ---
Exam Note: Antony Note: Please also refer to the separate dictated note~for this date of service dictated separately.~Patient seen individually. Discussed the patient with Nursing staff reviewed the chart.~Reviewed interim history and current functioning. Reviewed vital signs,~Labs/ Radiology~and current medications noted below. Continue current treatment with the changes noted in the dictated addendum note Assessment: Vital Signs: Vital Signs Date Time Temp Pulse Resp B/P (MAP) Pulse Ox O2 Delivery O2 Flow Rate FiO2 07/05/18 15:49 98.0 84 18 119/68 (85) 96 07/05/18 05:48 Room Air I&O Intake and Output 07/05/18 06:59 Intake Total 360 ml Balance 360 ml Intake Oral 360 ml Current Medications: Meds: Current Medications Trimethoprim/ Sulfamethoxazole (Bactrim Ds) 1 tab 1X ONCE PO Last administered on 06/28/18at 22:04; Start 06/28/18 at 22:15; Stop 06/28/18 at 22:16 ; Status DC Levofloxacin (Levaquin) 500 mg DAILY PO Last administered on 07/02/18at 07:49; Start 06/28/18 at 22:30; Stop 07/02/18 at 16:26; Status DC Acetaminophen (Tylenol) 650 mg PRN Q6HRS PRN PO MILD PAIN / TEMP; Start at 22:45; Stop 06/28/18 at 23:49; Status DC Multi-Ingredient Ointment (Analgesic [place]) 1 heriberto PRN QID PRN TP MUSCLE PAIN; Start 06/28/18 at 22:45 Al Hydroxide/Mg Hydroxide (Mylanta Plus Xs) 15 ml PRN AFTMEALHC PRN PO DYSPEPSIA; Start 06/28/18 at 22:45 Magnesium Hydroxide (Milk Of Magnesia) 2,400 mg PRN QHS PRN PO CONSTIPATION; Start 06/28/18 at 22:45 Olanzapine (ZyPREXA ZYDIS) 2.5 mg PRN Q2HR PRN PO PSYCHOSIS Last administered on 07/05/18at 19:24; Start 06/28/18 at 23:30 Clonazepam (KlonoPIN) 1 mg TID PO Last administered on 06/30/18at 14:02; Start 06/29/18 at 09:00; Stop 06/30/18 at 16:48; Status DC Divalproex Sodium (Depakote Sprinkles) 125 mg QHS PO Last administered on 20:46; Start 06/29/18 at 21:00; Stop 06/30/18 at 16:35; Status DC Citalopram Hydrobromide (CeleXA) 40 mg DAILY PO Last administered on 07/01/18 09:44; Start 06/29/18 at 09:00; Stop 07/01/18 at 11:27; Status DC Memantine (Namenda) 10 mg BID PO Last administered on 07/05/18 19:24; Start 06/29/18 at 09:00 Acetaminophen (Tylenol) 650 mg PRN Q4HRS PRN PO PAIN; Start 06/28/18 at 23:30 Aspirin (Mili Aspirin) 325 mg DAILY PO Last administered on 07/05/18 08:16; Start 06/29/18 at 09:00 Lisinopril (Prinivil) 10 mg DAILY PO Last administered on 07/05/18 08:17; Start 06/29/18 at 09:00 Ascorbic Acid (Vitamin C) 500 mg DAILY PO Last administered on 07/05/18 08:17 ; Start 06/29/18 at 09:00 Vitamin D (Vitamin D3) 2,000 unit DAILY PO Last administered on 07/05/18 08:18 ; Start 06/29/18 at 09:00 Multivit/Ca Carb/ B Cmplx/FA/Prenat (Nephro-Abel) 1 tab DAILY PO Last administered on 07/05/18 08:16; Start 06/29/18 at 09:00 Fish Oil (Fish Oil) 1,000 mg BID PO Last administered on 07/05/18 19:24; Start 06/29/18 at 09:00 Lactobacillus Rhamnosus (Culturelle) 1 cap BID PO Last administered on 19:24; Start 06/29/18 at 21:00 Divalproex Sodium (Depakote Sprinkles) 250 mg QHS PO Last administered on 19:22; Start 06/30/18 at 21:00 Divalproex Sodium (Depakote Sprinkles) 250 mg DAILY PO Last administered on 10/ 8/18at 08:17; Start 07/01/18 at 09:00 Clonazepam (KlonoPIN) 1 mg BID@0900,1300 PO Last administered on 07/01/18at 09: 46; Start 07/01/18 at 09:00; Stop 07/01/18 at 11:27; Status DC Clonazepam (KlonoPIN) 0.5 mg QHS PO Last administered on 07/05/18 19:25; Start 06/30/18 at 21:00; Stop 07/10/18 at 09:00 Sertraline HCl (Zoloft) 50 mg QHS PO Last administered on 07/05/18 19:24; Start 07/01/18 at 21:00 Clonazepam (KlonoPIN) 0.25 mg DAILY PO Last administered on 07/05/18at 08:20; Start 07/03/18 at 21:00; Stop 07/05/18 at 21:00 Clonazepam (KlonoPIN) 1 mg DAILY@1300 PO Last administered on 07/05/18at 13:44; Start 07/01/18 at 13:00; Stop 07/05/18 at 21:00 Clonazepam (KlonoPIN) 0.5 mg DAILY PO Last administered on 07/03/18at 08:07; Start 07/02/18 at 09:00; Stop 07/03/18 at 21:00; Status DC Clonazepam (KlonoPIN) 0.5 mg DAILY@1300 PO ; Start 07/06/18 at 13:00; Stop 07/15 at 21:00 Clonazepam (KlonoPIN) 0.25 mg DAILY@1300 PO ; Start 07/08/18 at 13:00; Stop at 21:00 Clonazepam (KlonoPIN) 0.25 mg HS PO ; Start 07/10/18 at 21:00; Stop 07/12/18 at 09:00 Trazodone HCl (Desyrel) 50 mg QHS PO Last administered on 07/05/18at 19:22; Start 07/01/18 at 21:00 Trazodone HCl (Desyrel) 50 mg PRN QHS PRN PO INSOMNIA; Start 07/01/18 at 11:00 Active Scripts Active Reported Mapap (Acetaminophen) 325 Mg Tablet 650 Mg PO PRN Q4HRS PRN Nephro-Abel Tablet (Folic Acid/Vitamin B Comp W-C) 0.8 Mg Tablet 0.4 Mg PO DAILY Clonazepam 1 Mg Tablet 1 Mg PO TID Depakote Sprinkle (Divalproex Sodium) 125 Mg Cap.sprink 125 Mg PO QHS Lisinopril 10 Mg Tablet 10 Mg PO DAILY Namenda (Memantine Hcl) 10 Mg Tablet 10 Mg PO BID [place] 3 1,000 Mg Softgel ([place]-3 Fatty Acids/Fish Oil) 1 Each Capsule 1 Each PO BID Escitalopram Oxalate 20 Mg Tablet 20 Mg PO DAILY Vitamin D3 (Cholecalciferol (Vitamin D3)) 2,000 Unit Tablet 2,000 Unit PO DAILY Aspirin 325 Mg Tablet 325 Mg PO DAILY Vitamin C (Ascorbic Acid) 500 Mg Tablet.er 500 Mg PO DAILY I have reviewed the current psychotropics carefully including drug interactions. Risk benefit ratio favors no change other than as noted in my dictated progress note. Diagnosis: Problems: (1) Change in mental status (2) Anxiety disorder (3) Dementia in Alzheimer's disease with delusions (4) Dementia in Alzheimer's disease with depression (5) Dementia, vascular, with delusions (6) Dementia, vascular, with depression (7) Impulse control disorder CARRIE RAHMAN MD Jul 05, 2018 20:49
[2018-07-06 06:06] VITALS: BP 109/73
[2018-07-06] MEDS: ASPIRIN 325 MG TABLET PO SCH (09:58)
[2018-07-06] MEDS: LISINOPRIL 10 MG TABLET PO SCH (09:58)
[2018-07-06] MEDS: CHOLECALCIFEROL (VITAMIN D3) 1,000 UNIT TABLET PO SCH (09:58)
[2018-07-06] MEDS: LACTOBACILLUS RHAMNOSUS GG 1 CAPSULE. PO SCH ×2 (09:58→20:03)
[2018-07-06] MEDS: DIVALPROEX 125 MG CAP.SPRINK PO SCH ×2 (09:58→20:03)
[2018-07-06] MEDS: OMEGA-3 FATTY ACIDS/FISH OIL 1,000 MG CAPSULE. PO SCH ×2 (09:58→20:03)
[2018-07-06] MEDS: MEMANTINE 10 MG TABLET. PO SCH ×2 (09:59→20:03)
[2018-07-06] MEDS: ASCORBIC ACID 500 MG TABLET PO SCH (09:59)
[2018-07-06] MEDS: FOLIC/VIT B COMP W-C (RENAL) TABLET. PO SCH (10:01)
[2018-07-06] MEDS: clonazePAM 0.5 MG TABLET PO SCH ×2 (13:05→20:02)
[2018-07-06 16:38] VITALS: BP 139/75
[2018-07-06] MEDS: traZODone 50 MG TABLET. PO SCH (20:03)
[2018-07-06] MEDS: SERTRALINE 50 MG TABLET. PO SCH (20:03)
--- NOTE | 2018-07-06 21:03 | PDOC ---
Exam Note: Antony Note: Please also refer to the separate dictated note~for this date of service dictated separately.~Patient seen individually. Discussed the patient with Nursing staff reviewed the chart.~Reviewed interim history and current functioning. Reviewed vital signs,~Labs/ Radiology~and current medications noted below. Continue current treatment with the changes noted in the dictated addendum note Assessment: Vital Signs: Vital Signs Date Time Temp Pulse Resp B/P (MAP) Pulse Ox O2 Delivery O2 Flow Rate FiO2 07/06/18 16:38 98.0 85 20 139/75 (96) 94 07/05/18 05:48 Room Air I&O Intake and Output 07/06/18 07:00 Intake Total 560 ml Balance 560 ml Intake Oral 560 ml # Voids 2 Current Medications: Meds: Current Medications Trimethoprim/ Sulfamethoxazole (Bactrim Ds) 1 tab 1X ONCE PO Last administered on 06/28/18at 22:04; Start 06/28/18 at 22:15; Stop 06/28/18 at 22:16 ; Status DC Levofloxacin (Levaquin) 500 mg DAILY PO Last administered on 07/02/18at 07:49; Start 06/28/18 at 22:30; Stop 07/02/18 at 16:26; Status DC Acetaminophen (Tylenol) 650 mg PRN Q6HRS PRN PO MILD PAIN / TEMP; Start at 22:45; Stop 06/28/18 at 23:49; Status DC Multi-Ingredient Ointment (Analgesic [place]) 1 heriberto PRN QID PRN TP MUSCLE PAIN; Start 06/28/18 at 22:45 Al Hydroxide/Mg Hydroxide (Mylanta Plus Xs) 15 ml PRN AFTMEALHC PRN PO DYSPEPSIA; Start 06/28/18 at 22:45 Magnesium Hydroxide (Milk Of Magnesia) 2,400 mg PRN QHS PRN PO CONSTIPATION; Start 06/28/18 at 22:45 Olanzapine (ZyPREXA ZYDIS) 2.5 mg PRN Q2HR PRN PO PSYCHOSIS Last administered on 07/06/18at 20:02; Start 06/28/18 at 23:30 Clonazepam (KlonoPIN) 1 mg TID PO Last administered on 06/30/18at 14:02; Start 06/29/18 at 09:00; Stop 06/30/18 at 16:48; Status DC Divalproex Sodium (Depakote Sprinkles) 125 mg QHS PO Last administered on 20:46; Start 06/29/18 at 21:00; Stop 06/30/18 at 16:35; Status DC Citalopram Hydrobromide (CeleXA) 40 mg DAILY PO Last administered on 07/01/18 09:44; Start 06/29/18 at 09:00; Stop 07/01/18 at 11:27; Status DC Memantine (Namenda) 10 mg BID PO Last administered on 07/06/18 20:03; Start 06/29/18 at 09:00 Acetaminophen (Tylenol) 650 mg PRN Q4HRS PRN PO PAIN; Start 06/28/18 at 23:30 Aspirin (Mili Aspirin) 325 mg DAILY PO Last administered on 07/06/18 09:58; Start 06/29/18 at 09:00 Lisinopril (Prinivil) 10 mg DAILY PO Last administered on 07/06/18 09:58; Start 06/29/18 at 09:00 Ascorbic Acid (Vitamin C) 500 mg DAILY PO Last administered on 07/06/18 09:59 ; Start 06/29/18 at 09:00 Vitamin D (Vitamin D3) 2,000 unit DAILY PO Last administered on 07/06/18 09:58 ; Start 06/29/18 at 09:00 Multivit/Ca Carb/ B Cmplx/FA/Prenat (Nephro-Abel) 1 tab DAILY PO Last administered on 07/06/18at 10:01; Start 06/29/18 at 09:00 Fish Oil (Fish Oil) 1,000 mg BID PO Last administered on 07/06/18 20:03; Start 06/29/18 at 09:00 Lactobacillus Rhamnosus (Culturelle) 1 cap BID PO Last administered on 20:03; Start 06/29/18 at 21:00 Divalproex Sodium (Depakote Sprinkles) 250 mg QHS PO Last administered on 20:03; Start 06/30/18 at 21:00 Divalproex Sodium (Depakote Sprinkles) 250 mg DAILY PO Last administered on 10/ 9/18at 09:58; Start 07/01/18 at 09:00 Clonazepam (KlonoPIN) 1 mg BID@0900,1300 PO Last administered on 07/01/18at 09: 46; Start 07/01/18 at 09:00; Stop 07/01/18 at 11:27; Status DC Clonazepam (KlonoPIN) 0.5 mg QHS PO Last administered on 07/06/18at 20:02; Start 06/30/18 at 21:00; Stop 07/10/18 at 09:00 Sertraline HCl (Zoloft) 50 mg QHS PO Last administered on 07/06/18 20:03; Start 07/01/18 at 21:00 Clonazepam (KlonoPIN) 0.25 mg DAILY PO Last administered on 07/05/18at 08:20; Start 07/03/18 at 21:00; Stop 07/05/18 at 21:00; Status DC Clonazepam (KlonoPIN) 1 mg DAILY@1300 PO Last administered on 07/05/18at 13:44; Start 07/01/18 at 13:00; Stop 07/05/18 at 21:00; Status DC Clonazepam (KlonoPIN) 0.5 mg DAILY PO Last administered on 07/03/18at 08:07; Start 07/02/18 at 09:00; Stop 07/03/18 at 21:00; Status DC Clonazepam (KlonoPIN) 0.5 mg DAILY@1300 PO Last administered on 07/06/18at 13:05 ; Start 07/06/18 at 13:00; Stop 07/07/18 at 21:00 Clonazepam (KlonoPIN) 0.25 mg DAILY@1300 PO ; Start 07/08/18 at 13:00; Stop at 21:00 Clonazepam (KlonoPIN) 0.25 mg HS PO ; Start 07/10/18 at 21:00; Stop 07/12/18 at 09:00 Trazodone HCl (Desyrel) 50 mg QHS PO Last administered on 07/06/18at 20:03; Start 07/01/18 at 21:00 Trazodone HCl (Desyrel) 50 mg PRN QHS PRN PO INSOMNIA; Start 07/01/18 at 11:00 Active Scripts Active Reported Mapap (Acetaminophen) 325 Mg Tablet 650 Mg PO PRN Q4HRS PRN Nephro-Abel Tablet (Folic Acid/Vitamin B Comp W-C) 0.8 Mg Tablet 0.4 Mg PO DAILY Clonazepam 1 Mg Tablet 1 Mg PO TID Depakote Sprinkle (Divalproex Sodium) 125 Mg Cap.sprink 125 Mg PO QHS Lisinopril 10 Mg Tablet 10 Mg PO DAILY Namenda (Memantine Hcl) 10 Mg Tablet 10 Mg PO BID [place] 3 1,000 Mg Softgel ([place]-3 Fatty Acids/Fish Oil) 1 Each Capsule 1 Each PO BID Escitalopram Oxalate 20 Mg Tablet 20 Mg PO DAILY Vitamin D3 (Cholecalciferol (Vitamin D3)) 2,000 Unit Tablet 2,000 Unit PO DAILY Aspirin 325 Mg Tablet 325 Mg PO DAILY Vitamin C (Ascorbic Acid) 500 Mg Tablet.er 500 Mg PO DAILY I have reviewed the current psychotropics carefully including drug interactions. Risk benefit ratio favors no change other than as noted in my dictated progress note. Diagnosis: Problems: (1) Change in mental status (2) Anxiety disorder (3) Dementia in Alzheimer's disease with delusions (4) Dementia in Alzheimer's disease with depression (5) Dementia, vascular, with delusions (6) Dementia, vascular, with depression (7) Impulse control disorder CARRIE RAHMAN MD Jul 06, 2018 21:03
--- NOTE | 2018-07-06 23:06 | PN ---
DATE: 07/05/2018 This late entry for 07/05/2018 covers elements not covered in my initial note. SUBJECTIVE: I met with the patient in the evening. The patient slept 8-1/2 hours previous evening. He was combative Thursday night, but has done better since then. On 07/05, he slept till noon time. Remains confused. REVIEW OF SYSTEMS: Ambulation impaired, in wheelchair. No CV, , pulmonary, eye, ENT system symptoms on review. Difficulty with his ambulation. MENTAL STATUS EXAM: Oriented to himself. Insight, judgment, recent and remote memory, attention, concentration, fund of knowledge poor, consistent with his diagnosis mentioned in my initial note. PLAN: No change from initial note. Continue psychotropics as mentioned in my initial note Klonopin is being tapered and if we need to, we will increase the Depakote since level on 07/04/2018 was subtherapeutic at 19, but for now, it is clinically adequate. MAN Ifeanyi RAHMAN MD DR: LEYLA/alexandra JOB#: [id number] / [id number]
[2018-07-07] MEDS: traZODone 50 MG TABLET. PO PRN (00:03)
[2018-07-07 06:04] VITALS: BP 142/68
[2018-07-07] MEDS: CHOLECALCIFEROL (VITAMIN D3) 1,000 UNIT TABLET PO SCH (07:55)
[2018-07-07] MEDS: LISINOPRIL 10 MG TABLET PO SCH (07:55)
[2018-07-07] MEDS: DIVALPROEX 125 MG CAP.SPRINK PO SCH ×2 (07:56→19:56)
[2018-07-07] MEDS: FOLIC/VIT B COMP W-C (RENAL) TABLET. PO SCH (07:56)
[2018-07-07] MEDS: OMEGA-3 FATTY ACIDS/FISH OIL 1,000 MG CAPSULE. PO SCH ×2 (07:56→19:55)
[2018-07-07] MEDS: MEMANTINE 10 MG TABLET. PO SCH ×2 (07:56→19:56)
[2018-07-07] MEDS: ASPIRIN 325 MG TABLET PO SCH (07:56)
[2018-07-07] MEDS: LACTOBACILLUS RHAMNOSUS GG 1 CAPSULE. PO SCH ×2 (07:56→19:55)
[2018-07-07] MEDS: ASCORBIC ACID 500 MG TABLET PO SCH (07:56)
[2018-07-07] MEDS: clonazePAM 0.5 MG TABLET PO SCH ×2 (14:43→19:58)
[2018-07-07 16:11] VITALS: BP 122/76
[2018-07-07] MEDS: SERTRALINE 50 MG TABLET. PO SCH (19:55)
[2018-07-07] MEDS: MIRTAZAPINE 7.5 MG TABLET. PO SCH (19:56)
[2018-07-07] MEDS: traZODone 50 MG TABLET. PO SCH (19:56)
--- NOTE | 2018-07-07 20:49 | PN ---
DATE: 07/06/2018 PSYCHIATRIC PROGRESS NOTE This late entry 07/06/2018 covers elements not covered in my initial note. SUBJECTIVE: I met with the patient in the evening. The patient slept 4 hours previous evening. Labs on 07/04/2018 were unremarkable. UA is negative. Previous night he was combative, yelling, refused bedtime medications except Klonopin and Zyprexa. He was hallucinating, grabbing at things, resistive to medications. REVIEW OF SYSTEMS: Ambulation impaired, in wheelchair. No CV, , pulmonary, eye, ENT system symptoms on review. MENTAL STATUS EXAM: Oriented to himself. Insight, judgment, recent and remote memory, attention, concentration, fund of knowledge poor, consistent with his diagnosis mentioned in my initial note. PLAN: No change from initial note for now. We will adjust as clinically indicated. MAN Ifeanyi RAHMAN MD DR: LEYLA/alexandra JOB#: [id number] / [id number]
--- NOTE | 2018-07-07 20:54 | PDOC ---
Exam Note: Antony Note: Please also refer to the separate dictated note~for this date of service dictated separately.~Patient seen individually. Discussed the patient with Nursing staff reviewed the chart.~Reviewed interim history and current functioning. Reviewed vital signs,~Labs/ Radiology~and current medications noted below. Continue current treatment with the changes noted in the dictated addendum note Assessment: Vital Signs: Vital Signs Date Time Temp Pulse Resp B/P (MAP) Pulse Ox O2 Delivery O2 Flow Rate FiO2 07/07/18 16:11 98.5 69 18 122/76 (91) 95 07/05/18 05:48 Room Air I&O Intake and Output 07/07/18 07:00 Intake Total 1420 ml Balance 1420 ml Intake Oral 1420 ml Current Medications: Meds: Current Medications Trimethoprim/ Sulfamethoxazole (Bactrim Ds) 1 tab 1X ONCE PO Last administered on 06/28/18at 22:04; Start 06/28/18 at 22:15; Stop 06/28/18 at 22:16 ; Status DC Levofloxacin (Levaquin) 500 mg DAILY PO Last administered on 07/02/18at 07:49; Start 06/28/18 at 22:30; Stop 07/02/18 at 16:26; Status DC Acetaminophen (Tylenol) 650 mg PRN Q6HRS PRN PO MILD PAIN / TEMP; Start at 22:45; Stop 06/28/18 at 23:49; Status DC Multi-Ingredient Ointment (Analgesic [place]) 1 heriberto PRN QID PRN TP MUSCLE PAIN; Start 06/28/18 at 22:45 Al Hydroxide/Mg Hydroxide (Mylanta Plus Xs) 15 ml PRN AFTMEALHC PRN PO DYSPEPSIA; Start 06/28/18 at 22:45 Magnesium Hydroxide (Milk Of Magnesia) 2,400 mg PRN QHS PRN PO CONSTIPATION; Start 06/28/18 at 22:45 Olanzapine (ZyPREXA ZYDIS) 2.5 mg PRN Q2HR PRN PO PSYCHOSIS Last administered on 07/06/18at 20:02; Start 06/28/18 at 23:30 Clonazepam (KlonoPIN) 1 mg TID PO Last administered on 06/30/18at 14:02; Start 06/29/18 at 09:00; Stop 06/30/18 at 16:48; Status DC Divalproex Sodium (Depakote Sprinkles) 125 mg QHS PO Last administered on 20:46; Start 06/29/18 at 21:00; Stop 06/30/18 at 16:35; Status DC Citalopram Hydrobromide (CeleXA) 40 mg DAILY PO Last administered on 07/01/18 09:44; Start 06/29/18 at 09:00; Stop 07/01/18 at 11:27; Status DC Memantine (Namenda) 10 mg BID PO Last administered on 07/07/18 19:56; Start 06/29/18 at 09:00 Acetaminophen (Tylenol) 650 mg PRN Q4HRS PRN PO PAIN; Start 06/28/18 at 23:30 Aspirin (Mili Aspirin) 325 mg DAILY PO Last administered on 07/07/18 07:56; Start 06/29/18 at 09:00 Lisinopril (Prinivil) 10 mg DAILY PO Last administered on 07/07/18 07:55; Start 06/29/18 at 09:00 Ascorbic Acid (Vitamin C) 500 mg DAILY PO Last administered on 07/07/18 07:56 ; Start 06/29/18 at 09:00 Vitamin D (Vitamin D3) 2,000 unit DAILY PO Last administered on 07/07/18 07: 55; Start 06/29/18 at 09:00 Multivit/Ca Carb/ B Cmplx/FA/Prenat (Nephro-Abel) 1 tab DAILY PO Last administered on 07/07/18 07:56; Start 06/29/18 at 09:00 Fish Oil (Fish Oil) 1,000 mg BID PO Last administered on 07/07/18 19:55; Start 06/29/18 at 09:00 Lactobacillus Rhamnosus (Culturelle) 1 cap BID PO Last administered on 19:55; Start 06/29/18 at 21:00 Divalproex Sodium (Depakote Sprinkles) 250 mg QHS PO Last administered on 07/07 19:56; Start 06/30/18 at 21:00 Divalproex Sodium (Depakote Sprinkles) 250 mg DAILY PO Last administered on 07:56; Start 07/01/18 at 09:00 Clonazepam (KlonoPIN) 1 mg BID@0900,1300 PO Last administered on 07/01/18at 09: 46; Start 07/01/18 at 09:00; Stop 07/01/18 at 11:27; Status DC Clonazepam (KlonoPIN) 0.5 mg QHS PO Last administered on 07/07/18 19:58; Start 06/30/18 at 21:00; Stop 07/10/18 at 09:00 Sertraline HCl (Zoloft) 50 mg QHS PO Last administered on 07/07/18 19:55; Start 07/01/18 at 21:00 Clonazepam (KlonoPIN) 0.25 mg DAILY PO Last administered on 07/05/18at 08:20; Start 07/03/18 at 21:00; Stop 07/05/18 at 21:00; Status DC Clonazepam (KlonoPIN) 1 mg DAILY@1300 PO Last administered on 07/05/18at 13:44; Start 07/01/18 at 13:00; Stop 07/05/18 at 21:00; Status DC Clonazepam (KlonoPIN) 0.5 mg DAILY PO Last administered on 07/03/18 08:07; Start 07/02/18 at 09:00; Stop 07/03/18 at 21:00; Status DC Clonazepam (KlonoPIN) 0.5 mg DAILY@1300 PO Last administered on 07/07/18at 14: 43; Start 07/06/18 at 13:00; Stop 07/07/18 at 21:00 Clonazepam (KlonoPIN) 0.25 mg DAILY@1300 PO ; Start 07/08/18 at 13:00; Stop at 21:00 Clonazepam (KlonoPIN) 0.25 mg HS PO ; Start 07/10/18 at 21:00; Stop 07/12/18 at 09:00 Trazodone HCl (Desyrel) 50 mg QHS PO Last administered on 07/07/18at 19:56; Start 07/01/18 at 21:00 Trazodone HCl (Desyrel) 50 mg PRN QHS PRN PO INSOMNIA Last administered on 07/15at 00:03; Start 07/01/18 at 11:00 Mirtazapine (Remeron) 7.5 mg QHS PO Last administered on 07/07/18at 19:56; Start 07/07/18 at 21:00 Active Scripts Active Reported Mapap (Acetaminophen) 325 Mg Tablet 650 Mg PO PRN Q4HRS PRN Nephro-Abel Tablet (Folic Acid/Vitamin B Comp W-C) 0.8 Mg Tablet 0.4 Mg PO DAILY Clonazepam 1 Mg Tablet 1 Mg PO TID Depakote Sprinkle (Divalproex Sodium) 125 Mg Cap.sprink 125 Mg PO QHS Lisinopril 10 Mg Tablet 10 Mg PO DAILY Namenda (Memantine Hcl) 10 Mg Tablet 10 Mg PO BID [place] 3 1,000 Mg Softgel ([place]-3 Fatty Acids/Fish Oil) 1 Each Capsule 1 Each PO BID Escitalopram Oxalate 20 Mg Tablet 20 Mg PO DAILY Vitamin D3 (Cholecalciferol (Vitamin D3)) 2,000 Unit Tablet 2,000 Unit PO DAILY Aspirin 325 Mg Tablet 325 Mg PO DAILY Vitamin C (Ascorbic Acid) 500 Mg Tablet.er 500 Mg PO DAILY I have reviewed the current psychotropics carefully including drug interactions. Risk benefit ratio favors no change other than as noted in my dictated progress note. Diagnosis: Problems: (1) Change in mental status (2) Anxiety disorder (3) Dementia in Alzheimer's disease with delusions (4) Dementia in Alzheimer's disease with depression (5) Dementia, vascular, with delusions (6) Dementia, vascular, with depression (7) Impulse control disorder CARRIE RAHMAN MD Jul 07, 2018 20:54
[2018-07-08 06:08] VITALS: BP 100/62
[2018-07-08] MEDS: MEMANTINE 10 MG TABLET. PO SCH ×2 (10:30→20:17)
[2018-07-08] MEDS: ASPIRIN 325 MG TABLET PO SCH (10:30)
[2018-07-08] MEDS: OMEGA-3 FATTY ACIDS/FISH OIL 1,000 MG CAPSULE. PO SCH ×2 (10:30→20:17)
[2018-07-08] MEDS: LISINOPRIL 10 MG TABLET PO SCH (10:31)
[2018-07-08] MEDS: DIVALPROEX 125 MG CAP.SPRINK PO SCH ×2 (10:31→20:17)
[2018-07-08] MEDS: LACTOBACILLUS RHAMNOSUS GG 1 CAPSULE. PO SCH ×2 (10:31→20:17)
[2018-07-08] MEDS: ASCORBIC ACID 500 MG TABLET PO SCH (10:32)
[2018-07-08] MEDS: CHOLECALCIFEROL (VITAMIN D3) 1,000 UNIT TABLET PO SCH (10:32)
[2018-07-08] MEDS: FOLIC/VIT B COMP W-C (RENAL) TABLET. PO SCH (10:36)
[2018-07-08] MEDS: clonazePAM 0.5 MG TABLET PO SCH ×2 (13:36→20:17)
[2018-07-08 16:36] VITALS: BP 134/79
[2018-07-08] MEDS: SERTRALINE 50 MG TABLET. PO SCH (20:17)
[2018-07-08] MEDS: MIRTAZAPINE 7.5 MG TABLET. PO SCH (20:17)
[2018-07-08] MEDS: traZODone 50 MG TABLET. PO SCH (20:17)
--- NOTE | 2018-07-08 20:43 | PDOC ---
Exam Note: Antony Note: Please also refer to the separate dictated note~for this date of service dictated separately.~Patient seen individually. Discussed the patient with Nursing staff reviewed the chart.~Reviewed interim history and current functioning. Reviewed vital signs,~Labs/ Radiology~and current medications noted below. Continue current treatment with the changes noted in the dictated addendum note Assessment: Vital Signs: Vital Signs Date Time Temp Pulse Resp B/P (MAP) Pulse Ox O2 Delivery O2 Flow Rate FiO2 07/08/18 16:36 98.2 66 20 134/79 (97) 92 Room Air I&O Intake and Output 07/08/18 07:00 Intake Total 360 ml Balance 360 ml Intake Oral 360 ml # Voids 1 Current Medications: Meds: Current Medications Trimethoprim/ Sulfamethoxazole (Bactrim Ds) 1 tab 1X ONCE PO Last administered on 06/28/18at 22:04; Start 06/28/18 at 22:15; Stop 06/28/18 at 22:16 ; Status DC Levofloxacin (Levaquin) 500 mg DAILY PO Last administered on 07/02/18at 07:49; Start 06/28/18 at 22:30; Stop 07/02/18 at 16:26; Status DC Acetaminophen (Tylenol) 650 mg PRN Q6HRS PRN PO MILD PAIN / TEMP; Start at 22:45; Stop 06/28/18 at 23:49; Status DC Multi-Ingredient Ointment (Analgesic [place]) 1 heriberto PRN QID PRN TP MUSCLE PAIN; Start 06/28/18 at 22:45 Al Hydroxide/Mg Hydroxide (Mylanta Plus Xs) 15 ml PRN AFTMEALHC PRN PO DYSPEPSIA; Start 06/28/18 at 22:45 Magnesium Hydroxide (Milk Of Magnesia) 2,400 mg PRN QHS PRN PO CONSTIPATION; Start 06/28/18 at 22:45 Olanzapine (ZyPREXA ZYDIS) 2.5 mg PRN Q2HR PRN PO PSYCHOSIS Last administered on 07/06/18at 20:02; Start 06/28/18 at 23:30 Clonazepam (KlonoPIN) 1 mg TID PO Last administered on 06/30/18at 14:02; Start 06/29/18 at 09:00; Stop 06/30/18 at 16:48; Status DC Divalproex Sodium (Depakote Sprinkles) 125 mg QHS PO Last administered on 20:46; Start 06/29/18 at 21:00; Stop 06/30/18 at 16:35; Status DC Citalopram Hydrobromide (CeleXA) 40 mg DAILY PO Last administered on 07/01/18 09:44; Start 06/29/18 at 09:00; Stop 07/01/18 at 11:27; Status DC Memantine (Namenda) 10 mg BID PO Last administered on 07/08/18 20:17; Start 06/29/18 at 09:00 Acetaminophen (Tylenol) 650 mg PRN Q4HRS PRN PO PAIN; Start 06/28/18 at 23:30 Aspirin (Mili Aspirin) 325 mg DAILY PO Last administered on 07/08/18 10:30; Start 06/29/18 at 09:00 Lisinopril (Prinivil) 10 mg DAILY PO Last administered on 07/08/18 10:31; Start 06/29/18 at 09:00 Ascorbic Acid (Vitamin C) 500 mg DAILY PO Last administered on 07/08/18 10:32 ; Start 06/29/18 at 09:00 Vitamin D (Vitamin D3) 2,000 unit DAILY PO Last administered on 07/08/18 10: 32; Start 06/29/18 at 09:00 Multivit/Ca Carb/ B Cmplx/FA/Prenat (Nephro-Abel) 1 tab DAILY PO Last administered on 07/08/18 10:36; Start 06/29/18 at 09:00 Fish Oil (Fish Oil) 1,000 mg BID PO Last administered on 07/08/18 20:17; Start 06/29/18 at 09:00 Lactobacillus Rhamnosus (Culturelle) 1 cap BID PO Last administered on 20:17; Start 06/29/18 at 21:00 Divalproex Sodium (Depakote Sprinkles) 250 mg QHS PO Last administered on 07/08 20:17; Start 06/30/18 at 21:00 Divalproex Sodium (Depakote Sprinkles) 250 mg DAILY PO Last administered on 10:31; Start 07/01/18 at 09:00 Clonazepam (KlonoPIN) 1 mg BID@0900,1300 PO Last administered on 07/01/18at 09: 46; Start 07/01/18 at 09:00; Stop 07/01/18 at 11:27; Status DC Clonazepam (KlonoPIN) 0.5 mg QHS PO Last administered on 07/08/18at 20:17; Start 06/30/18 at 21:00; Stop 07/10/18 at 09:00 Sertraline HCl (Zoloft) 50 mg QHS PO Last administered on 07/08/18at 20:17; Start 07/01/18 at 21:00 Clonazepam (KlonoPIN) 0.25 mg DAILY PO Last administered on 07/05/18at 08:20; Start 07/03/18 at 21:00; Stop 07/05/18 at 21:00; Status DC Clonazepam (KlonoPIN) 1 mg DAILY@1300 PO Last administered on 07/05/18at 13:44; Start 07/01/18 at 13:00; Stop 07/05/18 at 21:00; Status DC Clonazepam (KlonoPIN) 0.5 mg DAILY PO Last administered on 07/03/18at 08:07; Start 07/02/18 at 09:00; Stop 07/03/18 at 21:00; Status DC Clonazepam (KlonoPIN) 0.5 mg DAILY@1300 PO Last administered on 07/07/18at 14: 43; Start 07/06/18 at 13:00; Stop 07/07/18 at 21:00; Status DC Clonazepam (KlonoPIN) 0.25 mg DAILY@1300 PO Last administered on 07/08/18at 13: 36; Start 07/08/18 at 13:00; Stop 07/09/18 at 21:00 Clonazepam (KlonoPIN) 0.25 mg HS PO ; Start 07/10/18 at 21:00; Stop 07/12/18 at 09:00 Trazodone HCl (Desyrel) 50 mg QHS PO Last administered on 07/08/18at 20:17; Start 07/01/18 at 21:00 Trazodone HCl (Desyrel) 50 mg PRN QHS PRN PO INSOMNIA Last administered on 10/ 10/18at 00:03; Start 07/01/18 at 11:00 Mirtazapine (Remeron) 7.5 mg QHS PO Last administered on 07/08/18at 20:17; Start 07/07/18 at 21:00 Active Scripts Active Reported Mapap (Acetaminophen) 325 Mg Tablet 650 Mg PO PRN Q4HRS PRN Nephro-Abel Tablet (Folic Acid/Vitamin B Comp W-C) 0.8 Mg Tablet 0.4 Mg PO DAILY Clonazepam 1 Mg Tablet 1 Mg PO TID Depakote Sprinkle (Divalproex Sodium) 125 Mg Cap.sprink 125 Mg PO QHS Lisinopril 10 Mg Tablet 10 Mg PO DAILY Namenda (Memantine Hcl) 10 Mg Tablet 10 Mg PO BID [place] 3 1,000 Mg Softgel ([place]-3 Fatty Acids/Fish Oil) 1 Each Capsule 1 Each PO BID Escitalopram Oxalate 20 Mg Tablet 20 Mg PO DAILY Vitamin D3 (Cholecalciferol (Vitamin D3)) 2,000 Unit Tablet 2,000 Unit PO DAILY Aspirin 325 Mg Tablet 325 Mg PO DAILY Vitamin C (Ascorbic Acid) 500 Mg Tablet.er 500 Mg PO DAILY I have reviewed the current psychotropics carefully including drug interactions. Risk benefit ratio favors no change other than as noted in my dictated progress note. Diagnosis: Problems: (1) Change in mental status (2) Anxiety disorder (3) Dementia in Alzheimer's disease with delusions (4) Dementia in Alzheimer's disease with depression (5) Dementia, vascular, with delusions (6) Dementia, vascular, with depression (7) Impulse control disorder CARRIE RAHMAN MD Jul 08, 2018 20:43
[2018-07-09] MEDS: traZODone 50 MG TABLET. PO PRN ×2 (01:42→21:00)
[2018-07-09 06:06] VITALS: BP 94/60
[2018-07-09] MEDS: FOLIC/VIT B COMP W-C (RENAL) TABLET. PO SCH (08:09)
[2018-07-09] MEDS: LACTOBACILLUS RHAMNOSUS GG 1 CAPSULE. PO SCH ×2 (08:09→20:05)
[2018-07-09] MEDS: OMEGA-3 FATTY ACIDS/FISH OIL 1,000 MG CAPSULE. PO SCH (08:09)
[2018-07-09] MEDS: CHOLECALCIFEROL (VITAMIN D3) 1,000 UNIT TABLET PO SCH (08:09)
[2018-07-09] MEDS: MEMANTINE 10 MG TABLET. PO SCH ×2 (08:09→20:03)
[2018-07-09] MEDS: ASPIRIN 325 MG TABLET PO SCH (08:09)
[2018-07-09] MEDS: DIVALPROEX 125 MG CAP.SPRINK PO SCH ×2 (08:09→20:04)
[2018-07-09] MEDS: ASCORBIC ACID 500 MG TABLET PO SCH (08:09)
[2018-07-09] MEDS: LISINOPRIL 10 MG TABLET PO SCH (08:10)
[2018-07-09] MEDS: clonazePAM 0.5 MG TABLET PO SCH ×2 (14:17→20:04)
[2018-07-09 15:44] VITALS: BP 125/79
--- NOTE | 2018-07-09 16:17 | PN ---
DATE: 07/08/2018 This is a late entry for 07/08/2018 and covers elements not covered in my initial note. SUBJECTIVE: I met with the patient in the evening. The patient slept 7 hours previous evening, 6 hours average. At the treatment team meeting, his , Jazmín attended as well. Reviewed his history, updated her on his diagnosis, progress, transition plans. He is less restless. REVIEW OF SYSTEMS: Ambulation impaired, in wheelchair. No CV, , pulmonary, eye, ENT system symptoms on review. Reliability poor. MENTAL STATUS EXAM: Oriented to himself. Insight, judgment, recent and remote memory, attention, concentration, fund of knowledge poor, consistent with his diagnosis as mentioned in my initial note. PLAN: No change from initial note. MAN Ifeanyi RAHMAN MD DR: LEYLA/alexandra JOB#: [id number] / [id number]
[2018-07-09] MEDS: traZODone 50 MG TABLET. PO SCH (20:03)
[2018-07-09] MEDS: SERTRALINE 50 MG TABLET. PO SCH (20:03)
[2018-07-09] MEDS: MIRTAZAPINE 7.5 MG TABLET. PO SCH (20:03)
--- NOTE | 2018-07-09 20:31 | PN ---
DATE: 07/07/2018 PSYCHIATRIC PROGRESS NOTE This late entry 07/07/2018 covers elements not covered in my initial note. SUBJECTIVE: I met with the patient in the evening. The patient slept 1-1/4 hours previous night. He has been combative and agitated at night, received trazodone and Zyprexa p.r.n. He was talking with another patient while lying in bed, quite disorganized. Slept during the day on 07/07/2018 until about 11:00 a.m. making up for the previous night's insomnia. REVIEW OF SYSTEMS: Ambulation impaired, in wheelchair. No CV, , pulmonary, eye, ENT system symptoms on review. Reliability poor. MENTAL STATUS EXAM: Oriented to himself. Insight, judgment, recent and remote memory, attention, concentration, fund of knowledge poor, consistent with his diagnosis mentioned in my initial note. PLAN: Start Remeron 7.5 mg p.o. at bedtime to help with insomnia. Maintain rest unchanged from initial note. MAN Ifeanyi RAHMAN MD DR: LEYLA/alexandra JOB#: [id number] / [id number]
--- NOTE | 2018-07-09 20:46 | PDOC ---
Exam Note: Antony Note: Please also refer to the separate dictated note~for this date of service dictated separately.~Patient seen individually. Discussed the patient with Nursing staff reviewed the chart.~Reviewed interim history and current functioning. Reviewed vital signs,~Labs/ Radiology~and current medications noted below. Continue current treatment with the changes noted in the dictated addendum note Assessment: Vital Signs: Vital Signs Date Time Temp Pulse Resp B/P (MAP) Pulse Ox O2 Delivery O2 Flow Rate FiO2 07/09/18 15:44 97.8 73 17 125/79 (94) 94 Room Air I&O Intake and Output 07/09/18 07:00 Intake Total 720 ml Balance 720 ml Intake Oral 720 ml # Bowel Movements 1 Current Medications: Meds: Current Medications Trimethoprim/ Sulfamethoxazole (Bactrim Ds) 1 tab 1X ONCE PO Last administered on 06/28/18at 22:04; Start 06/28/18 at 22:15; Stop 06/28/18 at 22:16 ; Status DC Levofloxacin (Levaquin) 500 mg DAILY PO Last administered on 07/02/18at 07:49; Start 06/28/18 at 22:30; Stop 07/02/18 at 16:26; Status DC Acetaminophen (Tylenol) 650 mg PRN Q6HRS PRN PO MILD PAIN / TEMP; Start at 22:45; Stop 06/28/18 at 23:49; Status DC Multi-Ingredient Ointment (Analgesic [place]) 1 heriberto PRN QID PRN TP MUSCLE PAIN; Start 06/28/18 at 22:45 Al Hydroxide/Mg Hydroxide (Mylanta Plus Xs) 15 ml PRN AFTMEALHC PRN PO DYSPEPSIA; Start 06/28/18 at 22:45 Magnesium Hydroxide (Milk Of Magnesia) 2,400 mg PRN QHS PRN PO CONSTIPATION; Start 06/28/18 at 22:45 Olanzapine (ZyPREXA ZYDIS) 2.5 mg PRN Q2HR PRN PO PSYCHOSIS Last administered on 07/09/18at 01:41; Start 06/28/18 at 23:30 Clonazepam (KlonoPIN) 1 mg TID PO Last administered on 06/30/18at 14:02; Start 06/29/18 at 09:00; Stop 06/30/18 at 16:48; Status DC Divalproex Sodium (Depakote Sprinkles) 125 mg QHS PO Last administered on at 20:46; Start 06/29/18 at 21:00; Stop 06/30/18 at 16:35; Status DC Citalopram Hydrobromide (CeleXA) 40 mg DAILY PO Last administered on 07/01/18at 09:44; Start 06/29/18 at 09:00; Stop 07/01/18 at 11:27; Status DC Memantine (Namenda) 10 mg BID PO Last administered on 07/09/18at 20:03; Start 06/29/18 at 09:00 Acetaminophen (Tylenol) 650 mg PRN Q4HRS PRN PO PAIN; Start 06/28/18 at 23:30 Aspirin (Mili Aspirin) 325 mg DAILY PO Last administered on 07/09/18at 08:09; Start 06/29/18 at 09:00 Lisinopril (Prinivil) 10 mg DAILY PO Last administered on 07/08/18at 10:31; Start 06/29/18 at 09:00 Ascorbic Acid (Vitamin C) 500 mg DAILY PO Last administered on 07/09/18at 08:09 ; Start 06/29/18 at 09:00 Vitamin D (Vitamin D3) 2,000 unit DAILY PO Last administered on 07/09/18at 08: 09; Start 06/29/18 at 09:00 Multivit/Ca Carb/ B Cmplx/FA/Prenat (Nephro-Abel) 1 tab DAILY PO Last administered on 07/09/18at 08:09; Start 06/29/18 at 09:00 Fish Oil (Fish Oil) 1,000 mg BID PO Last administered on 07/08/18at 20:17; Start 06/29/18 at 09:00; Stop 07/09/18 at 13:58; Status DC Lactobacillus Rhamnosus (Culturelle) 1 cap BID PO Last administered on at 20:05; Start 06/29/18 at 21:00 Divalproex Sodium (Depakote Sprinkles) 250 mg QHS PO Last administered on 07/09at 20:04; Start 06/30/18 at 21:00 Divalproex Sodium (Depakote Sprinkles) 250 mg DAILY PO Last administered on 08:09; Start 07/01/18 at 09:00 Clonazepam (KlonoPIN) 1 mg BID@0900,1300 PO Last administered on 07/01/18at 09: 46; Start 07/01/18 at 09:00; Stop 07/01/18 at 11:27; Status DC Clonazepam (KlonoPIN) 0.5 mg QHS PO Last administered on 07/09/18at 20:04; Start 06/30/18 at 21:00; Stop 07/10/18 at 09:00 Sertraline HCl (Zoloft) 50 mg QHS PO Last administered on 07/09/18at 20:03; Start 07/01/18 at 21:00 Clonazepam (KlonoPIN) 0.25 mg DAILY PO Last administered on 07/05/18at 08:20; Start 07/03/18 at 21:00; Stop 07/05/18 at 21:00; Status DC Clonazepam (KlonoPIN) 1 mg DAILY@1300 PO Last administered on 07/05/18at 13:44; Start 07/01/18 at 13:00; Stop 07/05/18 at 21:00; Status DC Clonazepam (KlonoPIN) 0.5 mg DAILY PO Last administered on 07/03/18at 08:07; Start 07/02/18 at 09:00; Stop 07/03/18 at 21:00; Status DC Clonazepam (KlonoPIN) 0.5 mg DAILY@1300 PO Last administered on 07/07/18at 14: 43; Start 07/06/18 at 13:00; Stop 07/07/18 at 21:00; Status DC Clonazepam (KlonoPIN) 0.25 mg DAILY@1300 PO Last administered on 07/09/18at 14: 17; Start 07/08/18 at 13:00; Stop 07/09/18 at 21:00 Clonazepam (KlonoPIN) 0.25 mg HS PO ; Start 07/10/18 at 21:00; Stop 07/12/18 at 09:00 Trazodone HCl (Desyrel) 50 mg QHS PO Last administered on 07/09/18at 20:03; Start 07/01/18 at 21:00 Trazodone HCl (Desyrel) 50 mg PRN QHS PRN PO INSOMNIA Last administered on 09/14at 01:42; Start 07/01/18 at 11:00 Mirtazapine (Remeron) 7.5 mg QHS PO Last administered on 07/09/18at 20:03; Start 07/07/18 at 21:00 Active Scripts Active Reported Mapap (Acetaminophen) 325 Mg Tablet 650 Mg PO PRN Q4HRS PRN Nephro-Abel Tablet (Folic Acid/Vitamin B Comp W-C) 0.8 Mg Tablet 0.4 Mg PO DAILY Clonazepam 1 Mg Tablet 1 Mg PO TID Depakote Sprinkle (Divalproex Sodium) 125 Mg Cap.sprink 125 Mg PO QHS Lisinopril 10 Mg Tablet 10 Mg PO DAILY Namenda (Memantine Hcl) 10 Mg Tablet 10 Mg PO BID [place] 3 1,000 Mg Softgel ([place]-3 Fatty Acids/Fish Oil) 1 Each Capsule 1 Each PO BID Escitalopram Oxalate 20 Mg Tablet 20 Mg PO DAILY Vitamin D3 (Cholecalciferol (Vitamin D3)) 2,000 Unit Tablet 2,000 Unit PO DAILY Aspirin 325 Mg Tablet 325 Mg PO DAILY Vitamin C (Ascorbic Acid) 500 Mg Tablet.er 500 Mg PO DAILY I have reviewed the current psychotropics carefully including drug interactions. Risk benefit ratio favors no change other than as noted in my dictated progress note. Diagnosis: Problems: (1) Change in mental status (2) Anxiety disorder (3) Dementia in Alzheimer's disease with delusions (4) Dementia in Alzheimer's disease with depression (5) Dementia, vascular, with delusions (6) Dementia, vascular, with depression (7) Impulse control disorder CARRIE RAHMAN MD Jul 09, 2018 20:46
[2018-07-10 05:40] VITALS: BP 115/67
[2018-07-10] MEDS: DIVALPROEX 125 MG CAP.SPRINK PO SCH ×2 (07:57→21:00)
[2018-07-10] MEDS: ASPIRIN 325 MG TABLET PO SCH (07:57)
[2018-07-10] MEDS: FOLIC/VIT B COMP W-C (RENAL) TABLET. PO SCH (07:57)
[2018-07-10] MEDS: LISINOPRIL 10 MG TABLET PO SCH (07:58)
[2018-07-10] MEDS: ASCORBIC ACID 500 MG TABLET PO SCH (07:58)
[2018-07-10] MEDS: MEMANTINE 10 MG TABLET. PO SCH ×2 (07:58→21:00)
[2018-07-10] MEDS: CHOLECALCIFEROL (VITAMIN D3) 1,000 UNIT TABLET PO SCH (07:59)
[2018-07-10] MEDS: LACTOBACILLUS RHAMNOSUS GG 1 CAPSULE. PO SCH ×2 (07:59→21:00)
[2018-07-10 11:07] LABS: BASO % 1 % (0-3); EOS # 0.2 x10^3/uL (0.0-0.7); EOS % 3 % (0-3); HEMATOCRIT 40.1 % (39.0-53.0); HEMOGLOBIN 13.7 g/dL (13.0-17.5); LYMPH % 16 % (24-48); MEAN CORPUSCULAR HEMOGLOBIN 30 pg (25-35); MEAN CORPUSCULAR HGB CONC 34 g/dL (31-37); MEAN CORPUSCULAR VOLUME 88 fL (79-100); MONO # 0.7 x10^3/uL (0.0-1.1); MONO % 11 % (0-9); NEUT # 4.7 x10^3uL (1.8-7.7); NEUT % 71 % (31-73); PLATELET COUNT 237 x10^3/uL (140-400); RED BLOOD COUNT 4.54 x10^6/uL (4.30-5.70); RED CELL DISTRIBUTION WIDTH 14.2 % (11.5-14.5); WHITE BLOOD COUNT 6.6 x10^3/uL (4.0-11.0)
[2018-07-10 11:23] LABS: ALBUMIN 3.3 g/dL (3.4-5.0); ALBUMIN/GLOBULIN RATIO 0.8 (1.0-1.7); ALK PHOS 119 U/L (46-116); ALT (SGPT) 48 U/L (16-63); ANION GAP 8 (6-14); AST (SGOT) 29 U/L (15-37); BLOOD UREA NITROGEN 40 mg/dL (8-26); BUN/CREATININE RATIO 40 (6-20); CALCIUM 8.8 mg/dL (8.5-10.1); CARBON DIOXIDE 31 mmol/L (21-32); CHLORIDE 108 mmol/L (98-107); GFR 72.8; GLUCOSE 166 mg/dL (70-99); POTASSIUM 3.4 mmol/L (3.5-5.1); SODIUM 147 mmol/L (136-145); TOTAL BILIRUBIN 0.4 mg/dL (0.2-1.0); TOTAL PROTEIN 7.5 g/dL (6.4-8.2)
[2018-07-10 11:30] LABS: VAL ACID 30 mcg/mL (50-100)
[2018-07-10 16:28] VITALS: BP 122/79
--- NOTE | 2018-07-10 20:16 | PN ---
DATE: 07/09/2018 This is a late entry for 07/09/2018 and covers elements not covered in my initial note. SUBJECTIVE: I met with the patient in the evening. The patient slept just 1-1/2 hours previous night. He slept in during the day until lunchtime and was cooperative with physical therapy, walking is better. Klonopin has been reduced, may be contributing to the insomnia, which hopefully is temporary. REVIEW OF SYSTEMS: Ambulation impaired, in wheelchair, walking a little better. No CV, , pulmonary, eye, ENT system symptoms on review. Reliability poor. MENTAL STATUS EXAM: Oriented to himself. Insight, judgment, recent and remote memory, attention, concentration, fund of knowledge poor, consistent with his diagnosis as mentioned in my initial note. PLAN: No change from initial note. Taper the Klonopin. We may consider increasing Remeron later if insomnia persists. CARRIE RAHMAN MD DR: LEYLA/alexandra JOB#: [id number] / [id number]
[2018-07-10] MEDS: clonazePAM 0.5 MG TABLET PO SCH (21:00)
[2018-07-10] MEDS: MIRTAZAPINE 7.5 MG TABLET. PO SCH (21:00)
[2018-07-10] MEDS: traZODone 50 MG TABLET. PO SCH (21:00)
[2018-07-10] MEDS: SERTRALINE 50 MG TABLET. PO SCH (21:00)
--- NOTE | 2018-07-10 22:43 | PDOC ---
Exam Note: Antony Note: Please also refer to the separate dictated note~for this date of service dictated separately.~Patient seen individually. Discussed the patient with Nursing staff reviewed the chart.~Reviewed interim history and current functioning. Reviewed vital signs,~Labs/ Radiology~and current medications noted below. Continue current treatment with the changes noted in the dictated addendum note Assessment: Vital Signs: Vital Signs Date Time Temp Pulse Resp B/P (MAP) Pulse Ox O2 Delivery O2 Flow Rate FiO2 07/10/18 16:28 98.4 74 18 122/79 (93) 97 07/09/18 15:44 Room Air I&O Intake and Output 07/10/18 07:00 Intake Total 600 ml Balance 600 ml Intake Oral 600 ml Labs: Laboratory Tests Test 07/10/18 10:00 White Blood Count 6.6 x10^3/uL (4.0-11.0) Red Blood Count 4.54 x10^6/uL (4.30-5.70) Hemoglobin 13.7 g/dL (13.0-17.5) Hematocrit 40.1 % (39.0-53.0) Mean Corpuscular Volume 88 fL (79-100) Mean Corpuscular Hemoglobin 30 pg (25-35) Mean Corpuscular Hemoglobin Concent 34 g/dL (31-37) Red Cell Distribution Width 14.2 % (11.5-14.5) Platelet Count 237 x10^3/uL (140-400) Neutrophils (%) (Auto) 71 % (31-73) Lymphocytes (%) (Auto) 16 % (24-48) L Monocytes (%) (Auto) 11 % (0-9) H Eosinophils (%) (Auto) 3 % (0-3) Basophils (%) (Auto) 1 % (0-3) Neutrophils # (Auto) 4.7 x10^3uL (1.8-7.7) Lymphocytes # (Auto) 1.0 x10^3/uL (1.0-4.8) Monocytes # (Auto) 0.7 x10^3/uL (0.0-1.1) Eosinophils # (Auto) 0.2 x10^3/uL (0.0-0.7) Basophils # (Auto) 0.0 x10^3/uL (0.0-0.2) Sodium Level 147 mmol/L (136-145) H Potassium Level 3.4 mmol/L (3.5-5.1) L Chloride Level 108 mmol/L (98-107) H Carbon Dioxide Level 31 mmol/L (21-32) Anion Gap 8 (6-14) Blood Urea Nitrogen 40 mg/dL (8-26) H Creatinine 1.0 mg/dL (0.7-1.3) Estimated GFR (Cockcroft-Gault) 72.8 BUN/Creatinine Ratio 40 (6-20) H Glucose Level 166 mg/dL (70-99) H Calcium Level 8.8 mg/dL (8.5-10.1) Total Bilirubin 0.4 mg/dL (0.2-1.0) Aspartate Amino Transferase (AST) 29 U/L (15-37) Alanine Aminotransferase (ALT) 48 U/L (16-63) Alkaline Phosphatase 119 U/L (46-116) H Total Protein 7.5 g/dL (6.4-8.2) Albumin 3.3 g/dL (3.4-5.0) L Albumin/Globulin Ratio 0.8 (1.0-1.7) L Valproic Acid Level 30 mcg/mL (50-100) L Valproic Acid Last Dose Date 07/09/18 Valproic Acid Last Dose Time 2100 Current Medications: Meds: Current Medications Trimethoprim/ Sulfamethoxazole (Bactrim Ds) 1 tab 1X ONCE PO Last administered on 06/28/18at 22:04; Start 06/28/18 at 22:15; Stop 06/28/18 at 22:16 ; Status DC Levofloxacin (Levaquin) 500 mg DAILY PO Last administered on 07/02/18at 07:49; Start 06/28/18 at 22:30; Stop 07/02/18 at 16:26; Status DC Acetaminophen (Tylenol) 650 mg PRN Q6HRS PRN PO MILD PAIN / TEMP; Start at 22:45; Stop 06/28/18 at 23:49; Status DC Multi-Ingredient Ointment (Analgesic [place]) 1 heriberto PRN QID PRN TP MUSCLE PAIN; Start 06/28/18 at 22:45 Al Hydroxide/Mg Hydroxide (Mylanta Plus Xs) 15 ml PRN AFTMEALHC PRN PO DYSPEPSIA; Start 06/28/18 at 22:45 Magnesium Hydroxide (Milk Of Magnesia) 2,400 mg PRN QHS PRN PO CONSTIPATION; Start 06/28/18 at 22:45 Olanzapine (ZyPREXA ZYDIS) 2.5 mg PRN Q2HR PRN PO PSYCHOSIS Last administered on 07/09/18at 21:01; Start 06/28/18 at 23:30 Clonazepam (KlonoPIN) 1 mg TID PO Last administered on 06/30/18at 14:02; Start 06/29/18 at 09:00; Stop 06/30/18 at 16:48; Status DC Divalproex Sodium (Depakote Sprinkles) 125 mg QHS PO Last administered on at 20:46; Start 06/29/18 at 21:00; Stop 06/30/18 at 16:35; Status DC Citalopram Hydrobromide (CeleXA) 40 mg DAILY PO Last administered on 07/01/18at 09:44; Start 06/29/18 at 09:00; Stop 07/01/18 at 11:27; Status DC Memantine (Namenda) 10 mg BID PO Last administered on 07/10/18 21:00; Start 06/29/18 at 09:00 Acetaminophen (Tylenol) 650 mg PRN Q4HRS PRN PO PAIN; Start 06/28/18 at 23:30 Aspirin (Mili Aspirin) 325 mg DAILY PO Last administered on 07/10/18 07:57; Start 06/29/18 at 09:00 Lisinopril (Prinivil) 10 mg DAILY PO Last administered on 07/10/18 07:58; Start 06/29/18 at 09:00 Ascorbic Acid (Vitamin C) 500 mg DAILY PO Last administered on 07/10/18 07:58 ; Start 06/29/18 at 09:00 Vitamin D (Vitamin D3) 2,000 unit DAILY PO Last administered on 07/10/18 07: 59; Start 06/29/18 at 09:00 Multivit/Ca Carb/ B Cmplx/FA/Prenat (Nephro-Abel) 1 tab DAILY PO Last administered on 07/10/18 07:57; Start 06/29/18 at 09:00 Fish Oil (Fish Oil) 1,000 mg BID PO Last administered on 07/08/18at 20:17; Start 06/29/18 at 09:00; Stop 07/09/18 at 13:58; Status DC Lactobacillus Rhamnosus (Culturelle) 1 cap BID PO Last administered on at 21:00; Start 06/29/18 at 21:00 Divalproex Sodium (Depakote Sprinkles) 250 mg QHS PO Last administered on 07/10at 21:00; Start 06/30/18 at 21:00 Divalproex Sodium (Depakote Sprinkles) 250 mg DAILY PO Last administered on at 07:57; Start 07/01/18 at 09:00 Clonazepam (KlonoPIN) 1 mg BID@0900,1300 PO Last administered on 07/01/18at 09: 46; Start 07/01/18 at 09:00; Stop 07/01/18 at 11:27; Status DC Clonazepam (KlonoPIN) 0.5 mg QHS PO Last administered on 07/09/18at 20:04; Start 06/30/18 at 21:00; Stop 07/10/18 at 09:00; Status DC Sertraline HCl (Zoloft) 50 mg QHS PO Last administered on 07/10/18at 21:00; Start 07/01/18 at 21:00 Clonazepam (KlonoPIN) 0.25 mg DAILY PO Last administered on 07/05/18at 08:20; Start 07/03/18 at 21:00; Stop 07/05/18 at 21:00; Status DC Clonazepam (KlonoPIN) 1 mg DAILY@1300 PO Last administered on 07/05/18at 13:44; Start 07/01/18 at 13:00; Stop 07/05/18 at 21:00; Status DC Clonazepam (KlonoPIN) 0.5 mg DAILY PO Last administered on 07/03/18at 08:07; Start 07/02/18 at 09:00; Stop 07/03/18 at 21:00; Status DC Clonazepam (KlonoPIN) 0.5 mg DAILY@1300 PO Last administered on 07/07/18at 14: 43; Start 07/06/18 at 13:00; Stop 07/07/18 at 21:00; Status DC Clonazepam (KlonoPIN) 0.25 mg DAILY@1300 PO Last administered on 07/09/18at 14: 17; Start 07/08/18 at 13:00; Stop 07/09/18 at 21:00; Status DC Clonazepam (KlonoPIN) 0.25 mg HS PO Last administered on 07/10/18at 21:00; Start 07/10/18 at 21:00; Stop 07/12/18 at 09:00 Trazodone HCl (Desyrel) 50 mg QHS PO Last administered on 07/10/18at 21:00; Start 07/01/18 at 21:00 Trazodone HCl (Desyrel) 50 mg PRN QHS PRN PO INSOMNIA Last administered on 09/14at 21:00; Start 07/01/18 at 11:00 Mirtazapine (Remeron) 7.5 mg QHS PO Last administered on 07/10/18at 21:00; Start 07/07/18 at 21:00 Active Scripts Active Reported Mapap (Acetaminophen) 325 Mg Tablet 650 Mg PO PRN Q4HRS PRN Nephro-Abel Tablet (Folic Acid/Vitamin B Comp W-C) 0.8 Mg Tablet 0.4 Mg PO DAILY Clonazepam 1 Mg Tablet 1 Mg PO TID Depakote Sprinkle (Divalproex Sodium) 125 Mg Cap.sprink 125 Mg PO QHS Lisinopril 10 Mg Tablet 10 Mg PO DAILY Namenda (Memantine Hcl) 10 Mg Tablet 10 Mg PO BID [place] 3 1,000 Mg Softgel ([place]-3 Fatty Acids/Fish Oil) 1 Each Capsule 1 Each PO BID Escitalopram Oxalate 20 Mg Tablet 20 Mg PO DAILY Vitamin D3 (Cholecalciferol (Vitamin D3)) 2,000 Unit Tablet 2,000 Unit PO DAILY Aspirin 325 Mg Tablet 325 Mg PO DAILY Vitamin C (Ascorbic Acid) 500 Mg Tablet.er 500 Mg PO DAILY I have reviewed the current psychotropics carefully including drug interactions. Risk benefit ratio favors no change other than as noted in my dictated progress note. Diagnosis: Problems: (1) Change in mental status (2) Anxiety disorder (3) Dementia in Alzheimer's disease with delusions (4) Dementia in Alzheimer's disease with depression (5) Dementia, vascular, with delusions (6) Dementia, vascular, with depression (7) Impulse control disorder LACEY,MAN M MD Jul 10, 2018 22:43
[2018-07-11 06:22] VITALS: BP 114/62
[2018-07-11] MEDS ORDERED: SELENIUM SULFIDE 2.5% SHAMPOO 120ML BOTTLE. TP PRN (07:30)
[2018-07-11] MEDS: DIVALPROEX 125 MG CAP.SPRINK PO SCH ×2 (07:46→20:06)
[2018-07-11] MEDS: FOLIC/VIT B COMP W-C (RENAL) TABLET. PO SCH (07:46)
[2018-07-11] MEDS: CHOLECALCIFEROL (VITAMIN D3) 1,000 UNIT TABLET PO SCH (07:46)
[2018-07-11] MEDS: ASPIRIN 325 MG TABLET PO SCH (07:46)
[2018-07-11] MEDS: MEMANTINE 10 MG TABLET. PO SCH ×2 (07:46→20:07)
[2018-07-11] MEDS: LACTOBACILLUS RHAMNOSUS GG 1 CAPSULE. PO SCH ×2 (07:46→20:06)
[2018-07-11] MEDS: LISINOPRIL 10 MG TABLET PO SCH (07:46)
[2018-07-11] MEDS: ASCORBIC ACID 500 MG TABLET PO SCH (07:47)
[2018-07-11 16:09] VITALS: BP 97/56
[2018-07-11] MEDS: clonazePAM 0.5 MG TABLET PO SCH (20:07)
[2018-07-11] MEDS: traZODone 50 MG TABLET. PO SCH (20:07)
[2018-07-11] MEDS: SERTRALINE 50 MG TABLET. PO SCH (20:07)
[2018-07-11] MEDS: MIRTAZAPINE 7.5 MG TABLET. PO SCH (20:07)
--- NOTE | 2018-07-11 20:47 | PDOC ---
Exam Note: Antony Note: Please also refer to the separate dictated note~for this date of service dictated separately.~Patient seen individually. Discussed the patient with Nursing staff reviewed the chart.~Reviewed interim history and current functioning. Reviewed vital signs,~Labs/ Radiology~and current medications noted below. Continue current treatment with the changes noted in the dictated addendum note Assessment: Vital Signs: Vital Signs Date Time Temp Pulse Resp B/P (MAP) Pulse Ox O2 Delivery O2 Flow Rate FiO2 07/11/18 16:09 97.2 65 20 97/56 (70) 95 07/09/18 15:44 Room Air I&O Intake and Output 07/11/18 07:00 Intake Total 838 ml Balance 838 ml Intake Oral 838 ml Current Medications: Meds: Current Medications Trimethoprim/ Sulfamethoxazole (Bactrim Ds) 1 tab 1X ONCE PO Last administered on 06/28/18at 22:04; Start 06/28/18 at 22:15; Stop 06/28/18 at 22:16 ; Status DC Levofloxacin (Levaquin) 500 mg DAILY PO Last administered on 07/02/18at 07:49; Start 06/28/18 at 22:30; Stop 07/02/18 at 16:26; Status DC Acetaminophen (Tylenol) 650 mg PRN Q6HRS PRN PO MILD PAIN / TEMP; Start at 22:45; Stop 06/28/18 at 23:49; Status DC Multi-Ingredient Ointment (Analgesic [place]) 1 heriberto PRN QID PRN TP MUSCLE PAIN; Start 06/28/18 at 22:45 Al Hydroxide/Mg Hydroxide (Mylanta Plus Xs) 15 ml PRN AFTMEALHC PRN PO DYSPEPSIA; Start 06/28/18 at 22:45 Magnesium Hydroxide (Milk Of Magnesia) 2,400 mg PRN QHS PRN PO CONSTIPATION; Start 06/28/18 at 22:45 Olanzapine (ZyPREXA ZYDIS) 2.5 mg PRN Q2HR PRN PO PSYCHOSIS Last administered on 07/09/18at 21:01; Start 06/28/18 at 23:30 Clonazepam (KlonoPIN) 1 mg TID PO Last administered on 06/30/18at 14:02; Start 06/29/18 at 09:00; Stop 06/30/18 at 16:48; Status DC Divalproex Sodium (Depakote Sprinkles) 125 mg QHS PO Last administered on 20:46; Start 06/29/18 at 21:00; Stop 06/30/18 at 16:35; Status DC Citalopram Hydrobromide (CeleXA) 40 mg DAILY PO Last administered on 07/01/18at 09:44; Start 06/29/18 at 09:00; Stop 07/01/18 at 11:27; Status DC Memantine (Namenda) 10 mg BID PO Last administered on 07/11/18 20:07; Start 06/29/18 at 09:00 Acetaminophen (Tylenol) 650 mg PRN Q4HRS PRN PO PAIN; Start 06/28/18 at 23:30 Aspirin (Mili Aspirin) 325 mg DAILY PO Last administered on 07/11/18at 07:46; Start 06/29/18 at 09:00 Lisinopril (Prinivil) 10 mg DAILY PO Last administered on 07/11/18at 07:46; Start 06/29/18 at 09:00 Ascorbic Acid (Vitamin C) 500 mg DAILY PO Last administered on 07/11/18at 07:47 ; Start 06/29/18 at 09:00 Vitamin D (Vitamin D3) 2,000 unit DAILY PO Last administered on 07/11/18at 07: 46; Start 06/29/18 at 09:00 Multivit/Ca Carb/ B Cmplx/FA/Prenat (Nephro-Abel) 1 tab DAILY PO Last administered on 07/11/18at 07:46; Start 06/29/18 at 09:00 Fish Oil (Fish Oil) 1,000 mg BID PO Last administered on 07/08/18 20:17; Start 06/29/18 at 09:00; Stop 07/09/18 at 13:58; Status DC Lactobacillus Rhamnosus (Culturelle) 1 cap BID PO Last administered on 20:06; Start 06/29/18 at 21:00 Divalproex Sodium (Depakote Sprinkles) 250 mg QHS PO Last administered on 07/11 20:06; Start 06/30/18 at 21:00 Divalproex Sodium (Depakote Sprinkles) 250 mg DAILY PO Last administered on 07:46; Start 07/01/18 at 09:00 Clonazepam (KlonoPIN) 1 mg BID@0900,1300 PO Last administered on 07/01/18 09: 46; Start 07/01/18 at 09:00; Stop 07/01/18 at 11:27; Status DC Clonazepam (KlonoPIN) 0.5 mg QHS PO Last administered on 07/09/18at 20:04; Start 06/30/18 at 21:00; Stop 07/10/18 at 09:00; Status DC Sertraline HCl (Zoloft) 50 mg QHS PO Last administered on 07/11/18 20:07; Start 07/01/18 at 21:00 Clonazepam (KlonoPIN) 0.25 mg DAILY PO Last administered on 07/05/18at 08:20; Start 07/03/18 at 21:00; Stop 07/05/18 at 21:00; Status DC Clonazepam (KlonoPIN) 1 mg DAILY@1300 PO Last administered on 07/05/18at 13:44; Start 07/01/18 at 13:00; Stop 07/05/18 at 21:00; Status DC Clonazepam (KlonoPIN) 0.5 mg DAILY PO Last administered on 07/03/18at 08:07; Start 07/02/18 at 09:00; Stop 07/03/18 at 21:00; Status DC Clonazepam (KlonoPIN) 0.5 mg DAILY@1300 PO Last administered on 07/07/18at 14: 43; Start 07/06/18 at 13:00; Stop 07/07/18 at 21:00; Status DC Clonazepam (KlonoPIN) 0.25 mg DAILY@1300 PO Last administered on 07/09/18at 14: 17; Start 07/08/18 at 13:00; Stop 07/09/18 at 21:00; Status DC Clonazepam (KlonoPIN) 0.25 mg HS PO Last administered on 07/11/18at 20:07; Start 07/10/18 at 21:00; Stop 07/12/18 at 09:00 Trazodone HCl (Desyrel) 50 mg QHS PO Last administered on 07/11/18at 20:07; Start 07/01/18 at 21:00 Trazodone HCl (Desyrel) 50 mg PRN QHS PRN PO INSOMNIA Last administered on 09/14at 21:00; Start 07/01/18 at 11:00 Mirtazapine (Remeron) 7.5 mg QHS PO Last administered on 07/11/18at 20:07; Start 07/07/18 at 21:00 Selenium Sulfide ([place]) 1 heriberto PRN DAILY PRN TP [place]; Start at 07:30 Active Scripts Active Reported Mapap (Acetaminophen) 325 Mg Tablet 650 Mg PO PRN Q4HRS PRN Nephro-Abel Tablet (Folic Acid/Vitamin B Comp W-C) 0.8 Mg Tablet 0.4 Mg PO DAILY Clonazepam 1 Mg Tablet 1 Mg PO TID Depakote Sprinkle (Divalproex Sodium) 125 Mg Cap.sprink 125 Mg PO QHS Lisinopril 10 Mg Tablet 10 Mg PO DAILY Namenda (Memantine Hcl) 10 Mg Tablet 10 Mg PO BID [place] 3 1,000 Mg Softgel ([place]-3 Fatty Acids/Fish Oil) 1 Each Capsule 1 Each PO BID Escitalopram Oxalate 20 Mg Tablet 20 Mg PO DAILY Vitamin D3 (Cholecalciferol (Vitamin D3)) 2,000 Unit Tablet 2,000 Unit PO DAILY Aspirin 325 Mg Tablet 325 Mg PO DAILY Vitamin C (Ascorbic Acid) 500 Mg Tablet.er 500 Mg PO DAILY I have reviewed the current psychotropics carefully including drug interactions. Risk benefit ratio favors no change other than as noted in my dictated progress note. Diagnosis: Problems: (1) Change in mental status (2) Anxiety disorder (3) Dementia in Alzheimer's disease with delusions (4) Dementia in Alzheimer's disease with depression (5) Dementia, vascular, with delusions (6) Dementia, vascular, with depression (7) Impulse control disorder CARRIE RAHMAN MD Jul 11, 2018 20:47
--- NOTE | 2018-07-12 03:30 | PN ---
DATE: 07/10/2018 This is a late entry for 07/10/2018 covers elements not covered in my initial note. SUBJECTIVE: I met with the patient in the evening. The patient slept 7 hours previous night. He is doing a little bit better per nursing report, less anxious, restless, very confused. REVIEW OF SYSTEMS: Ambulation impaired, in wheelchair. No CV, , pulmonary, eye, ENT system symptoms on review. Reliability poor. MENTAL STATUS EXAM: Oriented to himself. Insight, judgment, recent and remote memory, attention, concentration, fund of knowledge poor, consistent with his diagnosis mentioned in my initial note. PLAN: No change from initial note. MAN Ifeanyi RAHMAN MD DR: LEYLA/alexandra JOB#: [id number] / [id number]
[2018-07-12 06:32] VITALS: BP 117/64
[2018-07-12] MEDS: LACTOBACILLUS RHAMNOSUS GG 1 CAPSULE. PO SCH ×2 (08:50→20:24)
[2018-07-12] MEDS: FOLIC/VIT B COMP W-C (RENAL) TABLET. PO SCH (08:50)
[2018-07-12] MEDS: ASPIRIN 325 MG TABLET PO SCH (08:50)
[2018-07-12] MEDS: CHOLECALCIFEROL (VITAMIN D3) 1,000 UNIT TABLET PO SCH (08:50)
[2018-07-12] MEDS: DIVALPROEX 125 MG CAP.SPRINK PO SCH ×2 (08:50→20:24)
[2018-07-12] MEDS: MEMANTINE 10 MG TABLET. PO SCH ×2 (08:50→20:24)
[2018-07-12] MEDS: LISINOPRIL 10 MG TABLET PO SCH (08:50)
[2018-07-12] MEDS: ASCORBIC ACID 500 MG TABLET PO SCH (08:51)
[2018-07-12 16:18] VITALS: BP 150/61
[2018-07-12] MEDS: traZODone 50 MG TABLET. PO SCH (20:24)
[2018-07-12] MEDS: SERTRALINE 50 MG TABLET. PO SCH (20:24)
[2018-07-12] MEDS: traZODone 50 MG TABLET. PO PRN (20:25)
[2018-07-12] MEDS: MIRTAZAPINE 15 MG TABLET PO SCH (20:26)
--- NOTE | 2018-07-12 22:50 | PN ---
DATE: 07/11/2018 PSYCHIATRIC PROGRESS NOTE This late entry 07/11/2018 covers elements not covered in my initial note. SUBJECTIVE: I met with the patient in the evening. Overall, the patient slept 5-3/4 hours previous night. He has been confused, cooperative, somewhat restless, trying to get out of the [place] chair. REVIEW OF SYSTEMS: No CV, , pulmonary, eye, ENT system symptoms on review. Reliability poor. MENTAL STATUS EXAM: Oriented to himself. Insight, judgment, recent and remote memory, attention, concentration, fund of knowledge poor, consistent with his diagnosis mentioned in my initial note. IMPRESSION: Major neurocognitive disorder, Alzheimer, vascular with delusion, depression, behavioral disturbance. PLAN: No change from initial note. MAN Ifeanyi RAHMAN MD DR: LEYLA/alexandra JOB#: [id number] / [id number]
[2018-07-13 06:26] VITALS: BP 169/81
[2018-07-13] MEDS: LISINOPRIL 10 MG TABLET PO SCH (08:03)
[2018-07-13] MEDS: ASCORBIC ACID 500 MG TABLET PO SCH (08:03)
[2018-07-13] MEDS: LACTOBACILLUS RHAMNOSUS GG 1 CAPSULE. PO SCH ×2 (08:03→19:56)
[2018-07-13] MEDS: DIVALPROEX 125 MG CAP.SPRINK PO SCH ×2 (08:03→19:56)
[2018-07-13] MEDS: MEMANTINE 10 MG TABLET. PO SCH ×2 (08:03→19:56)
[2018-07-13] MEDS: CHOLECALCIFEROL (VITAMIN D3) 1,000 UNIT TABLET PO SCH (08:03)
[2018-07-13] MEDS: ASPIRIN 325 MG TABLET PO SCH (08:03)
[2018-07-13] MEDS: FOLIC/VIT B COMP W-C (RENAL) TABLET. PO SCH (08:04)
[2018-07-13 13:38] LABS: GFR 72.8; POTASSIUM 3.7 mmol/L (3.5-5.1)
[2018-07-13 16:30] VITALS: BP 126/79
[2018-07-13] MEDS: SERTRALINE 50 MG TABLET. PO SCH (19:56)
[2018-07-13] MEDS: MIRTAZAPINE 15 MG TABLET PO SCH (19:56)
[2018-07-13] MEDS: traZODone 100 MG TABLET. PO SCH (19:57)
[2018-07-13] MEDS: traZODone 100 MG TABLET. PO PRN (19:57)
--- NOTE | 2018-07-13 23:15 | PDOC ---
Exam Note: Antony Note: Please also refer to the separate dictated note~for this date of service dictated separately.~Patient seen individually. Discussed the patient with Nursing staff reviewed the chart.~Reviewed interim history and current functioning. Reviewed vital signs,~Labs/ Radiology~and current medications noted below. Continue current treatment with the changes noted in the dictated addendum note Assessment: Vital Signs: Vital Signs Date Time Temp Pulse Resp B/P (MAP) Pulse Ox O2 Delivery O2 Flow Rate FiO2 07/13/18 16:30 97.2 66 18 126/79 (95) 95 07/09/18 15:44 Room Air I&O Intake and Output 07/13/18 07:00 Intake Total 560 ml Balance 560 ml Intake Oral 560 ml # Bowel Movements 1 Labs: Laboratory Tests Test 07/13/18 13:22 Sodium Level 146 mmol/L (136-145) H Potassium Level 3.7 mmol/L (3.5-5.1) Chloride Level 108 mmol/L (98-107) H Carbon Dioxide Level 28 mmol/L (21-32) Anion Gap 10 (6-14) Blood Urea Nitrogen 34 mg/dL (8-26) H Creatinine 1.0 mg/dL (0.7-1.3) Estimated GFR (Cockcroft-Gault) 72.8 Glucose Level 124 mg/dL (70-99) H Calcium Level 9.0 mg/dL (8.5-10.1) Current Medications: Meds: Current Medications Trimethoprim/ Sulfamethoxazole (Bactrim Ds) 1 tab 1X ONCE PO Last administered on 06/28/18at 22:04; Start 06/28/18 at 22:15; Stop 06/28/18 at 22:16 ; Status DC Levofloxacin (Levaquin) 500 mg DAILY PO Last administered on 07/02/18at 07:49; Start 06/28/18 at 22:30; Stop 07/02/18 at 16:26; Status DC Acetaminophen (Tylenol) 650 mg PRN Q6HRS PRN PO MILD PAIN / TEMP; Start at 22:45; Stop 06/28/18 at 23:49; Status DC Multi-Ingredient Ointment (Analgesic [place]) 1 heriberto PRN QID PRN TP MUSCLE PAIN; Start 06/28/18 at 22:45 Al Hydroxide/Mg Hydroxide (Mylanta Plus Xs) 15 ml PRN AFTMEALHC PRN PO DYSPEPSIA; Start 06/28/18 at 22:45 Magnesium Hydroxide (Milk Of Magnesia) 2,400 mg PRN QHS PRN PO CONSTIPATION; Start 06/28/18 at 22:45 Olanzapine (ZyPREXA ZYDIS) 2.5 mg PRN Q2HR PRN PO PSYCHOSIS Last administered on 07/09/18at 21:01; Start 06/28/18 at 23:30 Clonazepam (KlonoPIN) 1 mg TID PO Last administered on 06/30/18at 14:02; Start 06/29/18 at 09:00; Stop 06/30/18 at 16:48; Status DC Divalproex Sodium (Depakote Sprinkles) 125 mg QHS PO Last administered on at 20:46; Start 06/29/18 at 21:00; Stop 06/30/18 at 16:35; Status DC Citalopram Hydrobromide (CeleXA) 40 mg DAILY PO Last administered on 07/01/18at 09:44; Start 06/29/18 at 09:00; Stop 07/01/18 at 11:27; Status DC Memantine (Namenda) 10 mg BID PO Last administered on 07/13/18at 19:56; Start 06/29/18 at 09:00 Acetaminophen (Tylenol) 650 mg PRN Q4HRS PRN PO PAIN; Start 06/28/18 at 23:30 Aspirin (Mili Aspirin) 325 mg DAILY PO Last administered on 07/13/18at 08:03; Start 06/29/18 at 09:00 Lisinopril (Prinivil) 10 mg DAILY PO Last administered on 07/13/18at 08:03; Start 06/29/18 at 09:00 Ascorbic Acid (Vitamin C) 500 mg DAILY PO Last administered on 07/13/18at 08:03 ; Start 06/29/18 at 09:00 Vitamin D (Vitamin D3) 2,000 unit DAILY PO Last administered on 07/13/18at 08: 03; Start 06/29/18 at 09:00 Multivit/Ca Carb/ B Cmplx/FA/Prenat (Nephro-Abel) 1 tab DAILY PO Last administered on 07/13/18at 08:04; Start 06/29/18 at 09:00 Fish Oil (Fish Oil) 1,000 mg BID PO Last administered on 07/08/18 20:17; Start 06/29/18 at 09:00; Stop 07/09/18 at 13:58; Status DC Lactobacillus Rhamnosus (Culturelle) 1 cap BID PO Last administered on 19:56; Start 06/29/18 at 21:00 Divalproex Sodium (Depakote Sprinkles) 250 mg QHS PO Last administered on 07/13 19:56; Start 06/30/18 at 21:00 Divalproex Sodium (Depakote Sprinkles) 250 mg DAILY PO Last administered on 08:03; Start 07/01/18 at 09:00 Clonazepam (KlonoPIN) 1 mg BID@0900,1300 PO Last administered on 07/01/18at 09: 46; Start 07/01/18 at 09:00; Stop 07/01/18 at 11:27; Status DC Clonazepam (KlonoPIN) 0.5 mg QHS PO Last administered on 07/09/18at 20:04; Start 06/30/18 at 21:00; Stop 07/10/18 at 09:00; Status DC Sertraline HCl (Zoloft) 50 mg QHS PO Last administered on 07/13/18at 19:56; Start 07/01/18 at 21:00 Clonazepam (KlonoPIN) 0.25 mg DAILY PO Last administered on 07/05/18at 08:20; Start 07/03/18 at 21:00; Stop 07/05/18 at 21:00; Status DC Clonazepam (KlonoPIN) 1 mg DAILY@1300 PO Last administered on 07/05/18at 13:44; Start 07/01/18 at 13:00; Stop 07/05/18 at 21:00; Status DC Clonazepam (KlonoPIN) 0.5 mg DAILY PO Last administered on 07/03/18at 08:07; Start 07/02/18 at 09:00; Stop 07/03/18 at 21:00; Status DC Clonazepam (KlonoPIN) 0.5 mg DAILY@1300 PO Last administered on 07/07/18at 14: 43; Start 07/06/18 at 13:00; Stop 07/07/18 at 21:00; Status DC Clonazepam (KlonoPIN) 0.25 mg DAILY@1300 PO Last administered on 07/09/18at 14: 17; Start 07/08/18 at 13:00; Stop 07/09/18 at 21:00; Status DC Clonazepam (KlonoPIN) 0.25 mg HS PO Last administered on 07/11/18at 20:07; Start 07/10/18 at 21:00; Stop 07/12/18 at 09:00; Status DC Trazodone HCl (Desyrel) 50 mg QHS PO Last administered on 07/12/18at 20:24; Start 07/01/18 at 21:00; Stop 07/13/18 at 19:23; Status DC Trazodone HCl (Desyrel) 50 mg PRN QHS PRN PO INSOMNIA Last administered on at 20:25; Start 07/01/18 at 11:00; Stop 07/13/18 at 19:23; Status DC Mirtazapine (Remeron) 7.5 mg QHS PO Last administered on 07/11/18at 20:07; Start 07/07/18 at 21:00; Stop 07/12/18 at 16:35; Status DC Selenium Sulfide (Selsun Blue) 1 heriberto PRN DAILY PRN TP Dandruff; Start at 07:30 Mirtazapine (Remeron) 15 mg QHS PO Last administered on 07/13/18at 19:56; Start 07/12/18 at 21:00 Trazodone HCl (Desyrel) 100 mg PRN QHS PRN PO INSOMNIA Last administered on at 19:57; Start 07/13/18 at 19:30 Trazodone HCl (Desyrel) 100 mg QHS PO Last administered on 07/13/18at 19:57; Start 07/13/18 at 21:00 Active Scripts Active Reported Mapap (Acetaminophen) 325 Mg Tablet 650 Mg PO PRN Q4HRS PRN Nephro-Abel Tablet (Folic Acid/Vitamin B Comp W-C) 0.8 Mg Tablet 0.4 Mg PO DAILY Clonazepam 1 Mg Tablet 1 Mg PO TID Depakote Sprinkle (Divalproex Sodium) 125 Mg Cap.sprink 125 Mg PO QHS Lisinopril 10 Mg Tablet 10 Mg PO DAILY Namenda (Memantine Hcl) 10 Mg Tablet 10 Mg PO BID [place] 3 1,000 Mg Softgel ([place]-3 Fatty Acids/Fish Oil) 1 Each Capsule 1 Each PO BID Escitalopram Oxalate 20 Mg Tablet 20 Mg PO DAILY Vitamin D3 (Cholecalciferol (Vitamin D3)) 2,000 Unit Tablet 2,000 Unit PO DAILY Aspirin 325 Mg Tablet 325 Mg PO DAILY Vitamin C (Ascorbic Acid) 500 Mg Tablet.er 500 Mg PO DAILY I have reviewed the current psychotropics carefully including drug interactions. Risk benefit ratio favors no change other than as noted in my dictated progress note. Diagnosis: Problems: (1) Change in mental status (2) Anxiety disorder (3) Dementia in Alzheimer's disease with delusions (4) Dementia in Alzheimer's disease with depression (5) Dementia, vascular, with delusions (6) Dementia, vascular, with depression (7) Impulse control disorder CARRIE RAHMAN MD Jul 13, 2018 23:15
--- NOTE | 2018-07-14 04:52 | PN ---
DATE: 07/12/2018 This is a late entry for 07/12/2018 covers elements not covered in my initial note. SUBJECTIVE: I met with the patient in the evening. The patient slept 4-1/2 hours previous evening. He remains confused, withdrawn, less anxious. REVIEW OF SYSTEMS: Ambulation impaired, in wheelchair. No CV, , pulmonary, eye, ENT system symptoms on review. Reliability poor. MENTAL STATUS EXAM: Oriented to himself. Insight, judgment, recent and remote memory, attention, concentration, fund of knowledge poor, consistent with his diagnosis. IMPRESSION: Major neurocognitive disorder, Alzheimer, vascular with delusion, depression, behavioral disturbance. PLAN: Increase Remeron from 7.5 to 15 mg at bedtime since he slept just 4-1/2 hours previous night. Maintain Zoloft, Namenda, Depakote, Seroquel, trazodone at current dosage. Klonopin is being tapered. MAN Ifeanyi RAHMAN MD DR: LEYLA/alexandra JOB#: [id number] / [id number]
[2018-07-14 06:01] VITALS: BP 101/58
[2018-07-14] MEDS: DIVALPROEX 125 MG CAP.SPRINK PO SCH ×2 (08:02→20:21)
[2018-07-14] MEDS: LISINOPRIL 10 MG TABLET PO SCH (08:02)
[2018-07-14] MEDS: MEMANTINE 10 MG TABLET. PO SCH ×2 (08:02→20:21)
[2018-07-14] MEDS: ASCORBIC ACID 500 MG TABLET PO SCH (08:03)
[2018-07-14] MEDS: CHOLECALCIFEROL (VITAMIN D3) 1,000 UNIT TABLET PO SCH (08:03)
[2018-07-14] MEDS: FOLIC/VIT B COMP W-C (RENAL) TABLET. PO SCH (08:03)
[2018-07-14] MEDS: LACTOBACILLUS RHAMNOSUS GG 1 CAPSULE. PO SCH ×2 (08:03→20:20)
[2018-07-14] MEDS: ASPIRIN 325 MG TABLET PO SCH (08:04)
[2018-07-14 16:28] VITALS: BP 106/59
[2018-07-14] MEDS: traZODone 100 MG TABLET. PO SCH (20:21)
[2018-07-14] MEDS: MIRTAZAPINE 15 MG TABLET PO SCH (20:22)
[2018-07-14] MEDS: SERTRALINE 50 MG TABLET. PO SCH (20:22)
--- NOTE | 2018-07-14 22:49 | PN ---
DATE: 07/13/2018 PSYCHIATRIC PROGRESS NOTE This late entry 07/13/2018 covers elements not covered in my initial note. SUBJECTIVE: I met with the patient in the evening. The patient has been quite confused, withdrawn, slept just half hour last night. Some of this could be because we are tapering his Klonopin. REVIEW OF SYSTEMS: Ambulation impaired, in wheelchair. No CV, , pulmonary, eye, ENT system symptoms on review. Reliability poor. MENTAL STATUS EXAM: Oriented to himself. Insight, judgment, recent and remote memory, attention, concentration, fund of knowledge poor, consistent with his diagnosis mentioned in my initial note. IMPRESSION: Major neurocognitive disorder, Alzheimer, vascular with delusion, depression, behavioral disturbance; anxiety disorder, unspecified; impulse control disorder, unspecified. PLAN: Increase trazodone from 50 mg at bedtime to 100 mg at bedtime, may repeat x 1 for insomnia. Continue to taper Klonopin. Valproic acid level is 30. Labs, we will repeat it on 07/13/2018. Sodium and chloride elevated, potassium low. Defer to Dr. Ochoa. BUN increased, fluids are being pushed. We will make further adjustments as clinically indicated. Social Service staff are looking for placement options. CARRIE RAHMAN MD DR: LEYLA/alexandra JOB#: [id number] / [id number]
--- NOTE | 2018-07-14 23:20 | PDOC ---
Exam Note: Antony Note: Please also refer to the separate dictated note~for this date of service dictated separately.~Patient seen individually. Discussed the patient with Nursing staff reviewed the chart.~Reviewed interim history and current functioning. Reviewed vital signs,~Labs/ Radiology~and current medications noted below. Continue current treatment with the changes noted in the dictated addendum note Assessment: Vital Signs: Vital Signs Date Time Temp Pulse Resp B/P (MAP) Pulse Ox O2 Delivery O2 Flow Rate FiO2 07/14/18 16:28 97.9 61 20 106/59 (75) 99 07/09/18 15:44 Room Air I&O Intake and Output 07/14/18 07:00 Intake Total 1520 ml Balance 1520 ml Intake Oral 1520 ml Current Medications: Meds: Current Medications Trimethoprim/ Sulfamethoxazole (Bactrim Ds) 1 tab 1X ONCE PO Last administered on 06/28/18at 22:04; Start 06/28/18 at 22:15; Stop 06/28/18 at 22:16 ; Status DC Levofloxacin (Levaquin) 500 mg DAILY PO Last administered on 07/02/18at 07:49; Start 06/28/18 at 22:30; Stop 07/02/18 at 16:26; Status DC Acetaminophen (Tylenol) 650 mg PRN Q6HRS PRN PO MILD PAIN / TEMP; Start at 22:45; Stop 06/28/18 at 23:49; Status DC Multi-Ingredient Ointment (Analgesic [place]) 1 heriberto PRN QID PRN TP MUSCLE PAIN; Start 06/28/18 at 22:45 Al Hydroxide/Mg Hydroxide (Mylanta Plus Xs) 15 ml PRN AFTMEALHC PRN PO DYSPEPSIA; Start 06/28/18 at 22:45 Magnesium Hydroxide (Milk Of Magnesia) 2,400 mg PRN QHS PRN PO CONSTIPATION; Start 06/28/18 at 22:45 Olanzapine (ZyPREXA ZYDIS) 2.5 mg PRN Q2HR PRN PO PSYCHOSIS Last administered on 07/14/18at 17:26; Start 06/28/18 at 23:30 Clonazepam (KlonoPIN) 1 mg TID PO Last administered on 06/30/18at 14:02; Start 06/29/18 at 09:00; Stop 06/30/18 at 16:48; Status DC Divalproex Sodium (Depakote Sprinkles) 125 mg QHS PO Last administered on at 20:46; Start 06/29/18 at 21:00; Stop 06/30/18 at 16:35; Status DC Citalopram Hydrobromide (CeleXA) 40 mg DAILY PO Last administered on 07/01/18at 09:44; Start 06/29/18 at 09:00; Stop 07/01/18 at 11:27; Status DC Memantine (Namenda) 10 mg BID PO Last administered on 07/14/18at 20:21; Start 06/29/18 at 09:00 Acetaminophen (Tylenol) 650 mg PRN Q4HRS PRN PO PAIN; Start 06/28/18 at 23:30 Aspirin (Mili Aspirin) 325 mg DAILY PO Last administered on 07/14/18at 08:04; Start 06/29/18 at 09:00 Lisinopril (Prinivil) 10 mg DAILY PO Last administered on 07/14/18at 08:02; Start 06/29/18 at 09:00 Ascorbic Acid (Vitamin C) 500 mg DAILY PO Last administered on 07/14/18at 08:03 ; Start 06/29/18 at 09:00 Vitamin D (Vitamin D3) 2,000 unit DAILY PO Last administered on 07/14/18at 08: 03; Start 06/29/18 at 09:00 Multivit/Ca Carb/ B Cmplx/FA/Prenat (Nephro-Abel) 1 tab DAILY PO Last administered on 07/14/18at 08:03; Start 06/29/18 at 09:00 Fish Oil (Fish Oil) 1,000 mg BID PO Last administered on 07/08/18at 20:17; Start 06/29/18 at 09:00; Stop 07/09/18 at 13:58; Status DC Lactobacillus Rhamnosus (Culturelle) 1 cap BID PO Last administered on at 20:20; Start 06/29/18 at 21:00 Divalproex Sodium (Depakote Sprinkles) 250 mg QHS PO Last administered on 07/14at 20:21; Start 06/30/18 at 21:00 Divalproex Sodium (Depakote Sprinkles) 250 mg DAILY PO Last administered on 08:02; Start 07/01/18 at 09:00 Clonazepam (KlonoPIN) 1 mg BID@0900,1300 PO Last administered on 07/01/18at 09: 46; Start 07/01/18 at 09:00; Stop 07/01/18 at 11:27; Status DC Clonazepam (KlonoPIN) 0.5 mg QHS PO Last administered on 07/09/18at 20:04; Start 06/30/18 at 21:00; Stop 07/10/18 at 09:00; Status DC Sertraline HCl (Zoloft) 50 mg QHS PO Last administered on 07/14/18 20:22; Start 07/01/18 at 21:00 Clonazepam (KlonoPIN) 0.25 mg DAILY PO Last administered on 07/05/18at 08:20; Start 07/03/18 at 21:00; Stop 07/05/18 at 21:00; Status DC Clonazepam (KlonoPIN) 1 mg DAILY@1300 PO Last administered on 07/05/18at 13:44; Start 07/01/18 at 13:00; Stop 07/05/18 at 21:00; Status DC Clonazepam (KlonoPIN) 0.5 mg DAILY PO Last administered on 07/03/18at 08:07; Start 07/02/18 at 09:00; Stop 07/03/18 at 21:00; Status DC Clonazepam (KlonoPIN) 0.5 mg DAILY@1300 PO Last administered on 07/07/18at 14: 43; Start 07/06/18 at 13:00; Stop 07/07/18 at 21:00; Status DC Clonazepam (KlonoPIN) 0.25 mg DAILY@1300 PO Last administered on 07/09/18at 14: 17; Start 07/08/18 at 13:00; Stop 07/09/18 at 21:00; Status DC Clonazepam (KlonoPIN) 0.25 mg HS PO Last administered on 07/11/18at 20:07; Start 07/10/18 at 21:00; Stop 07/12/18 at 09:00; Status DC Trazodone HCl (Desyrel) 50 mg QHS PO Last administered on 07/12/18at 20:24; Start 07/01/18 at 21:00; Stop 07/13/18 at 19:23; Status DC Trazodone HCl (Desyrel) 50 mg PRN QHS PRN PO INSOMNIA Last administered on at 20:25; Start 07/01/18 at 11:00; Stop 07/13/18 at 19:23; Status DC Mirtazapine (Remeron) 7.5 mg QHS PO Last administered on 07/11/18at 20:07; Start 07/07/18 at 21:00; Stop 07/12/18 at 16:35; Status DC Selenium Sulfide (Selsun Blue) 1 heriberto PRN DAILY PRN TP Dandruff; Start at 07:30 Mirtazapine (Remeron) 15 mg QHS PO Last administered on 07/14/18at 20:22; Start 07/12/18 at 21:00 Trazodone HCl (Desyrel) 100 mg PRN QHS PRN PO INSOMNIA Last administered on at 19:57; Start 07/13/18 at 19:30 Trazodone HCl (Desyrel) 100 mg QHS PO Last administered on 07/14/18at 20:21; Start 07/13/18 at 21:00 Active Scripts Active Reported Mapap (Acetaminophen) 325 Mg Tablet 650 Mg PO PRN Q4HRS PRN Nephro-Abel Tablet (Folic Acid/Vitamin B Comp W-C) 0.8 Mg Tablet 0.4 Mg PO DAILY Clonazepam 1 Mg Tablet 1 Mg PO TID Depakote Sprinkle (Divalproex Sodium) 125 Mg Cap.sprink 125 Mg PO QHS Lisinopril 10 Mg Tablet 10 Mg PO DAILY Namenda (Memantine Hcl) 10 Mg Tablet 10 Mg PO BID [place] 3 1,000 Mg Softgel ([place]-3 Fatty Acids/Fish Oil) 1 Each Capsule 1 Each PO BID Escitalopram Oxalate 20 Mg Tablet 20 Mg PO DAILY Vitamin D3 (Cholecalciferol (Vitamin D3)) 2,000 Unit Tablet 2,000 Unit PO DAILY Aspirin 325 Mg Tablet 325 Mg PO DAILY Vitamin C (Ascorbic Acid) 500 Mg Tablet.er 500 Mg PO DAILY I have reviewed the current psychotropics carefully including drug interactions. Risk benefit ratio favors no change other than as noted in my dictated progress note. Diagnosis: Problems: (1) Change in mental status (2) Anxiety disorder (3) Dementia in Alzheimer's disease with delusions (4) Dementia in Alzheimer's disease with depression (5) Dementia, vascular, with delusions (6) Dementia, vascular, with depression (7) Impulse control disorder CARRIE RAHMAN MD Jul 14, 2018 23:20
[2018-07-15] MEDS: traZODone 100 MG TABLET. PO PRN (00:09)
[2018-07-15 06:09] VITALS: BP 116/70
[2018-07-15] MEDS: CHOLECALCIFEROL (VITAMIN D3) 1,000 UNIT TABLET PO SCH (10:21)
[2018-07-15] MEDS: LACTOBACILLUS RHAMNOSUS GG 1 CAPSULE. PO SCH ×2 (10:21→20:08)
[2018-07-15] MEDS: MEMANTINE 10 MG TABLET. PO SCH ×2 (10:21→20:09)
[2018-07-15] MEDS: LISINOPRIL 10 MG TABLET PO SCH (10:22)
[2018-07-15] MEDS: ASPIRIN 325 MG TABLET PO SCH (10:22)
[2018-07-15] MEDS: FOLIC/VIT B COMP W-C (RENAL) TABLET. PO SCH (10:24)
[2018-07-15] MEDS: DIVALPROEX 125 MG CAP.SPRINK PO SCH ×2 (10:24→20:09)
[2018-07-15] MEDS: ASCORBIC ACID 500 MG TABLET PO SCH (10:24)
[2018-07-15] MEDS ORDERED: MAG355OR11 PO (15:23)
[2018-07-15] MEDS ORDERED: FOLI0.8T33 PO (15:23)
[2018-07-15] MEDS ORDERED: METH29OI TP (15:24)
[2018-07-15] MEDS ORDERED: MAGN2400 PO (15:24)
[2018-07-15] MEDS ORDERED: SALI325S2 TP (15:25)
[2018-07-15] MEDS ORDERED: MELA3TAB2 PO (15:28)
[2018-07-15] MEDS ORDERED: OLAN5TAB5 PO (15:29)
[2018-07-15] MEDS ORDERED: MIRT15TA PO (15:29)
[2018-07-15] MEDS ORDERED: SERT50TA PO (15:30)
[2018-07-15] MEDS ORDERED: TRAZ-86 PO ×2 (15:31→15:32)
[2018-07-15 16:09] VITALS: BP 133/71
[2018-07-15] MEDS: MIRTAZAPINE 15 MG TABLET PO SCH (20:09)
[2018-07-15] MEDS: traZODone 100 MG TABLET. PO SCH (20:09)
[2018-07-15] MEDS: SERTRALINE 50 MG TABLET. PO SCH (20:10)
[2018-07-15] MEDS ORDERED: MELATONIN 3 MG TABLET PO SCH (21:00)
--- NOTE | 2018-07-15 21:45 | PN ---
DATE: 06/30/2018 PSYCHIATRIC PROGRESS NOTE This late entry 06/30/2018 covers elements not covered in my initial note of 06/30/2018. SUBJECTIVE: The patient was seen in the evening of 06/30/2018. Discussed with nursing staff, reviewed the chart. I had previously dictated this note, but I was informed today that the note could not be traced in the electronic medical records and [place] dictating it. The patient remains confused. He remains in a wheelchair. No CV, , eye, ENT or pulmonary system symptoms on review. He was agitated after lunchtime when the nursing staff was administrating his afternoon medication. He refused and pushed out the nurse's hand. Another dose had to be pulled per nursing report. REVIEW OF SYSTEMS: Ambulation impaired. No CV, , pulmonary, eye, ENT system symptoms on review. Reliability poor. MENTAL STATUS EXAM: Oriented to himself. Insight, judgment, recent and remote memory, attention, concentration, fund of knowledge poor consistent with his diagnosis. The patient has been swinging at staff at times as well, yelling and demanding that the police be called. He had to be escorted to the hallway to calm down. IMPRESSION: Major neurocognitive disorder, Alzheimer, vascular with delusion, depression, behavioral disturbance; anxiety disorder, unspecified; impulse control disorder, unspecified. PLAN: Continue psychotropics mentioned in my initial note. The patient remains on Depakote, Klonopin, and rest of the psychotropics noted in my initial note. We will attempt to taper the Klonopin once the valproic acid level is therapeutic for behavioral dyscontrol. MAN Ifeanyi RAHMAN MD DR: LEYLA/alexandra JOB#: [id number] / [id number]
--- NOTE | 2018-07-15 23:04 | PN ---
DATE: 07/14/2018 PSYCHIATRIC PROGRESS NOTE This late entry 07/14/2018 covers elements not covered in my initial note. SUBJECTIVE: I met with the patient in the evening. The patient slept 7 hours previous night. Overall, he remains confused, but not aggressive. He did walk 12 feet with a nursing teacher, which is an improvement in itself. REVIEW OF SYSTEMS: Ambulation impaired, in wheelchair. No CV, , pulmonary, eye, ENT system symptoms on review. Reliability poor. MENTAL STATUS EXAM: Oriented to himself. Insight, judgment, recent and remote memory, attention, concentration, fund of knowledge poor, consistent with his diagnosis mentioned in my initial note. IMPRESSION: Major neurocognitive disorder, Alzheimer, vascular with delusion, depression, behavioral disturbance; anxiety disorder, unspecified. PLAN: Continue current psychotropics. Possible transition to nursing facility 07/15/2018, but no change from my initial note in his current psychotropics. MAN Ifeanyi RAHMAN MD DR: LEYLA/alxeandra JOB#: [id number] / [id number]
--- NOTE | 2018-07-15 23:37 | PDOC ---
Exam Note: Antony Note: Please also refer to the separate dictated note~for this date of service dictated separately.~Patient seen individually. Discussed the patient with Nursing staff reviewed the chart.~Reviewed interim history and current functioning. Reviewed vital signs,~Labs/ Radiology~and current medications noted below. Continue current treatment with the changes noted in the dictated addendum note Assessment: Vital Signs: Vital Signs Date Time Temp Pulse Resp B/P (MAP) Pulse Ox O2 Delivery O2 Flow Rate FiO2 07/15/18 16:09 98.0 62 18 133/71 (91) 92 07/09/18 15:44 Room Air I&O Intake and Output 07/15/18 07:00 Intake Total 720 ml Balance 720 ml Intake Oral 720 ml Current Medications: Meds: Current Medications Trimethoprim/ Sulfamethoxazole (Bactrim Ds) 1 tab 1X ONCE PO Last administered on 06/28/18at 22:04; Start 06/28/18 at 22:15; Stop 06/28/18 at 22:16 ; Status DC Levofloxacin (Levaquin) 500 mg DAILY PO Last administered on 07/02/18at 07:49; Start 06/28/18 at 22:30; Stop 07/02/18 at 16:26; Status DC Acetaminophen (Tylenol) 650 mg PRN Q6HRS PRN PO MILD PAIN / TEMP; Start at 22:45; Stop 06/28/18 at 23:49; Status DC Multi-Ingredient Ointment (Analgesic [place]) 1 keri PRN QID PRN TP MUSCLE PAIN; Start 06/28/18 at 22:45 Al Hydroxide/Mg Hydroxide (Mylanta Plus Xs) 15 ml PRN AFTMEALHC PRN PO DYSPEPSIA; Start 06/28/18 at 22:45 Magnesium Hydroxide (Milk Of Magnesia) 2,400 mg PRN QHS PRN PO CONSTIPATION; Start 06/28/18 at 22:45 Olanzapine (ZyPREXA ZYDIS) 2.5 mg PRN Q2HR PRN PO PSYCHOSIS Last administered on 07/14/18at 17:26; Start 06/28/18 at 23:30 Clonazepam (KlonoPIN) 1 mg TID PO Last administered on 06/30/18at 14:02; Start 06/29/18 at 09:00; Stop 06/30/18 at 16:48; Status DC Divalproex Sodium (Depakote Sprinkles) 125 mg QHS PO Last administered on 20:46; Start 06/29/18 at 21:00; Stop 06/30/18 at 16:35; Status DC Citalopram Hydrobromide (CeleXA) 40 mg DAILY PO Last administered on 07/01/18at 09:44; Start 06/29/18 at 09:00; Stop 07/01/18 at 11:27; Status DC Memantine (Namenda) 10 mg BID PO Last administered on 07/15/18at 20:09; Start 06/29/18 at 09:00 Acetaminophen (Tylenol) 650 mg PRN Q4HRS PRN PO PAIN; Start 06/28/18 at 23:30 Aspirin (Mili Aspirin) 325 mg DAILY PO Last administered on 07/15/18 10:22; Start 06/29/18 at 09:00 Lisinopril (Prinivil) 10 mg DAILY PO Last administered on 07/15/18at 10:22; Start 06/29/18 at 09:00 Ascorbic Acid (Vitamin C) 500 mg DAILY PO Last administered on 07/15/18at 10:24 ; Start 06/29/18 at 09:00 Vitamin D (Vitamin D3) 2,000 unit DAILY PO Last administered on 07/15/18 10: 21; Start 06/29/18 at 09:00 Multivit/Ca Carb/ B Cmplx/FA/Prenat (Nephro-Abel) 1 tab DAILY PO Last administered on 07/15/18at 10:24; Start 06/29/18 at 09:00 Fish Oil (Fish Oil) 1,000 mg BID PO Last administered on 07/08/18 20:17; Start 06/29/18 at 09:00; Stop 07/09/18 at 13:58; Status DC Lactobacillus Rhamnosus (Culturelle) 1 cap BID PO Last administered on at 20:08; Start 06/29/18 at 21:00 Divalproex Sodium (Depakote Sprinkles) 250 mg QHS PO Last administered on 07/15at 20:09; Start 06/30/18 at 21:00 Divalproex Sodium (Depakote Sprinkles) 250 mg DAILY PO Last administered on at 10:24; Start 07/01/18 at 09:00 Clonazepam (KlonoPIN) 1 mg BID@0900,1300 PO Last administered on 07/01/18at 09: 46; Start 07/01/18 at 09:00; Stop 07/01/18 at 11:27; Status DC Clonazepam (KlonoPIN) 0.5 mg QHS PO Last administered on 07/09/18at 20:04; Start 06/30/18 at 21:00; Stop 07/10/18 at 09:00; Status DC Sertraline HCl (Zoloft) 50 mg QHS PO Last administered on 07/15/18at 20:10; Start 07/01/18 at 21:00 Clonazepam (KlonoPIN) 0.25 mg DAILY PO Last administered on 07/05/18at 08:20; Start 07/03/18 at 21:00; Stop 07/05/18 at 21:00; Status DC Clonazepam (KlonoPIN) 1 mg DAILY@1300 PO Last administered on 07/05/18at 13:44; Start 07/01/18 at 13:00; Stop 07/05/18 at 21:00; Status DC Clonazepam (KlonoPIN) 0.5 mg DAILY PO Last administered on 07/03/18at 08:07; Start 07/02/18 at 09:00; Stop 07/03/18 at 21:00; Status DC Clonazepam (KlonoPIN) 0.5 mg DAILY@1300 PO Last administered on 07/07/18at 14: 43; Start 07/06/18 at 13:00; Stop 07/07/18 at 21:00; Status DC Clonazepam (KlonoPIN) 0.25 mg DAILY@1300 PO Last administered on 07/09/18at 14: 17; Start 07/08/18 at 13:00; Stop 07/09/18 at 21:00; Status DC Clonazepam (KlonoPIN) 0.25 mg HS PO Last administered on 07/11/18at 20:07; Start 07/10/18 at 21:00; Stop 07/12/18 at 09:00; Status DC Trazodone HCl (Desyrel) 50 mg QHS PO Last administered on 07/12/18at 20:24; Start 07/01/18 at 21:00; Stop 07/13/18 at 19:23; Status DC Trazodone HCl (Desyrel) 50 mg PRN QHS PRN PO INSOMNIA Last administered on at 20:25; Start 07/01/18 at 11:00; Stop 07/13/18 at 19:23; Status DC Mirtazapine (Remeron) 7.5 mg QHS PO Last administered on 07/11/18at 20:07; Start 07/07/18 at 21:00; Stop 07/12/18 at 16:35; Status DC Selenium Sulfide (Selsun Blue) 1 keri PRN DAILY PRN TP Dandruff; Start at 07:30 Mirtazapine (Remeron) 15 mg QHS PO Last administered on 07/15/18at 20:09; Start 07/12/18 at 21:00 Trazodone HCl (Desyrel) 100 mg PRN QHS PRN PO INSOMNIA Last administered on at 00:09; Start 07/13/18 at 19:30 Trazodone HCl (Desyrel) 100 mg QHS PO Last administered on 07/15/18at 20:09; Start 07/13/18 at 21:00 Melatonin 3 mg HS PO Last administered on 07/15/18at 20:11; Start 07/15/18 at 21:00 Active Scripts Active Reported Trazodone Hcl 100 Mg Tablet 1 Tab PO QHS Trazodone Hcl 100 Mg Tablet 1 Tab PO QHS PRN Zoloft (Sertraline Hcl) 50 Mg Tablet 1 Tab PO HS Zyprexa Zydis (Olanzapine) 5 Mg Tab.rapdis 2.5 Mg PO PRN Q2HR Remeron (Mirtazapine) 15 Mg Tablet 1 Tab PO QHS Melatonin 3 Mg Tablet 1 Tab PO QHS Selsun Blue (Salicylic Acid) 325 Ml Shampoo 1 Keri TP DAILY PRN Analgesic [place] (Methyl Salicylate/Menthol) 28 Gm Oint...g. 1 Keri TP QID PRN Milk Of Magnesia (Magnesium Hydroxide) 2,400 Mg/10 Ml Oral.susp 2,400 Mg PO HS PRN Maalox Advanced Suspension (Mag Hydrox/Aluminum Hyd/Simeth) 355 Ml Oral.susp 15 Ml PO QIDPRN PRN Nephro-Abel Tablet (Folic Acid/Vitamin B Comp W-C) 0.8 Mg Tablet 1 Tab PO DAILY Mapap (Acetaminophen) 325 Mg Tablet 650 Mg PO PRN Q4HRS PRN Nephro-Abel Tablet (Folic Acid/Vitamin B Comp W-C) 0.8 Mg Tablet 0.4 Mg PO DAILY Clonazepam 1 Mg Tablet 1 Mg PO TID Depakote Sprinkle (Divalproex Sodium) 125 Mg Cap.sprink 125 Mg PO QHS Lisinopril 10 Mg Tablet 10 Mg PO DAILY Namenda (Memantine Hcl) 10 Mg Tablet 10 Mg PO BID [place] 3 1,000 Mg Softgel ([place]-3 Fatty Acids/Fish Oil) 1 Each Capsule 1 Each PO BID Escitalopram Oxalate 20 Mg Tablet 20 Mg PO DAILY Vitamin D3 (Cholecalciferol (Vitamin D3)) 2,000 Unit Tablet 2,000 Unit PO DAILY Aspirin 325 Mg Tablet 325 Mg PO DAILY Vitamin C (Ascorbic Acid) 500 Mg Tablet.er 500 Mg PO DAILY I have reviewed the current psychotropics carefully including drug interactions. Risk benefit ratio favors no change other than as noted in my dictated progress note. Diagnosis: Problems: (1) Change in mental status (2) Anxiety disorder (3) Dementia in Alzheimer's disease with delusions (4) Dementia in Alzheimer's disease with depression (5) Dementia, vascular, with delusions (6) Dementia, vascular, with depression (7) Impulse control disorder CARRIE RAHMAN MD Jul 15, 2018 23:37
[2018-07-16 06:23] VITALS: BP 105/64
[2018-07-16 08:15] VITALS: BP 105/64
[2018-07-16] MEDS: MEMANTINE 10 MG TABLET. PO SCH (08:15)
[2018-07-16] MEDS: DIVALPROEX 125 MG CAP.SPRINK PO SCH (08:15)
[2018-07-16] MEDS: LISINOPRIL 10 MG TABLET PO SCH (08:15)
[2018-07-16] MEDS: ASPIRIN 325 MG TABLET PO SCH (08:15)
[2018-07-16] MEDS: ASCORBIC ACID 500 MG TABLET PO SCH (08:15)
[2018-07-16] MEDS: LACTOBACILLUS RHAMNOSUS GG 1 CAPSULE. PO SCH (08:15)
[2018-07-16] MEDS: CHOLECALCIFEROL (VITAMIN D3) 1,000 UNIT TABLET PO SCH (08:15)
[2018-07-16] MEDS: FOLIC/VIT B COMP W-C (RENAL) TABLET. PO SCH (10:01)
--- NOTE | 2018-07-16 12:25 | PDOC ---
Exam Note: Antony Note: Please also refer to the separate dictated note~for this date of service dictated separately.~Patient seen individually. Discussed the patient with Nursing staff reviewed the chart.~Reviewed interim history and current functioning. Reviewed vital signs,~Labs/ Radiology~and current medications noted below. Continue current treatment with the changes noted in the dictated addendum note Assessment: Vital Signs: Vital Signs Date Time Temp Pulse Resp B/P (MAP) Pulse Ox O2 Delivery O2 Flow Rate FiO2 07/16/18 08:15 60 105/64 07/16/18 06:23 98.6 13 96 I&O Intake and Output 07/16/18 07:00 Intake Total 600 ml Balance 600 ml Intake Oral 600 ml Current Medications: Meds: Current Medications Trimethoprim/ Sulfamethoxazole (Bactrim Ds) 1 tab 1X ONCE PO Last administered on 06/28/18at 22:04; Start 06/28/18 at 22:15; Stop 06/28/18 at 22:16 ; Status DC Levofloxacin (Levaquin) 500 mg DAILY PO Last administered on 07/02/18at 07:49; Start 06/28/18 at 22:30; Stop 07/02/18 at 16:26; Status DC Acetaminophen (Tylenol) 650 mg PRN Q6HRS PRN PO MILD PAIN / TEMP; Start at 22:45; Stop 06/28/18 at 23:49; Status DC Multi-Ingredient Ointment (Analgesic [place]) 1 keri PRN QID PRN TP MUSCLE PAIN; Start 06/28/18 at 22:45 Al Hydroxide/Mg Hydroxide (Mylanta Plus Xs) 15 ml PRN AFTMEALHC PRN PO DYSPEPSIA; Start 06/28/18 at 22:45 Magnesium Hydroxide (Milk Of Magnesia) 2,400 mg PRN QHS PRN PO CONSTIPATION; Start 06/28/18 at 22:45 Olanzapine (ZyPREXA ZYDIS) 2.5 mg PRN Q2HR PRN PO PSYCHOSIS Last administered on 07/14/18at 17:26; Start 06/28/18 at 23:30 Clonazepam (KlonoPIN) 1 mg TID PO Last administered on 06/30/18at 14:02; Start 06/29/18 at 09:00; Stop 06/30/18 at 16:48; Status DC Divalproex Sodium (Depakote Sprinkles) 125 mg QHS PO Last administered on at 20:46; Start 06/29/18 at 21:00; Stop 06/30/18 at 16:35; Status DC Citalopram Hydrobromide (CeleXA) 40 mg DAILY PO Last administered on 07/01/18at 09:44; Start 06/29/18 at 09:00; Stop 07/01/18 at 11:27; Status DC Memantine (Namenda) 10 mg BID PO Last administered on 07/16/18at 08:15; Start 06/29/18 at 09:00 Acetaminophen (Tylenol) 650 mg PRN Q4HRS PRN PO PAIN; Start 06/28/18 at 23:30 Aspirin (Mili Aspirin) 325 mg DAILY PO Last administered on 07/16/18at 08:15; Start 06/29/18 at 09:00 Lisinopril (Prinivil) 10 mg DAILY PO Last administered on 07/16/18at 08:15; Start 06/29/18 at 09:00 Ascorbic Acid (Vitamin C) 500 mg DAILY PO Last administered on 07/16/18at 08:15 ; Start 06/29/18 at 09:00 Vitamin D (Vitamin D3) 2,000 unit DAILY PO Last administered on 07/16/18 08: 15; Start 06/29/18 at 09:00 Multivit/Ca Carb/ B Cmplx/FA/Prenat (Nephro-Abel) 1 tab DAILY PO Last administered on 07/16/18at 10:01; Start 06/29/18 at 09:00 Fish Oil (Fish Oil) 1,000 mg BID PO Last administered on 07/08/18at 20:17; Start 06/29/18 at 09:00; Stop 07/09/18 at 13:58; Status DC Lactobacillus Rhamnosus (Culturelle) 1 cap BID PO Last administered on 08:15; Start 06/29/18 at 21:00 Divalproex Sodium (Depakote Sprinkles) 250 mg QHS PO Last administered on 07/15at 20:09; Start 06/30/18 at 21:00 Divalproex Sodium (Depakote Sprinkles) 250 mg DAILY PO Last administered on 10/ 19/18at 08:15; Start 07/01/18 at 09:00 Clonazepam (KlonoPIN) 1 mg BID@0900,1300 PO Last administered on 07/01/18at 09: 46; Start 07/01/18 at 09:00; Stop 07/01/18 at 11:27; Status DC Clonazepam (KlonoPIN) 0.5 mg QHS PO Last administered on 07/09/18at 20:04; Start 06/30/18 at 21:00; Stop 07/10/18 at 09:00; Status DC Sertraline HCl (Zoloft) 50 mg QHS PO Last administered on 07/15/18at 20:10; Start 07/01/18 at 21:00 Clonazepam (KlonoPIN) 0.25 mg DAILY PO Last administered on 07/05/18at 08:20; Start 07/03/18 at 21:00; Stop 07/05/18 at 21:00; Status DC Clonazepam (KlonoPIN) 1 mg DAILY@1300 PO Last administered on 07/05/18at 13:44; Start 07/01/18 at 13:00; Stop 07/05/18 at 21:00; Status DC Clonazepam (KlonoPIN) 0.5 mg DAILY PO Last administered on 07/03/18at 08:07; Start 07/02/18 at 09:00; Stop 07/03/18 at 21:00; Status DC Clonazepam (KlonoPIN) 0.5 mg DAILY@1300 PO Last administered on 07/07/18at 14: 43; Start 07/06/18 at 13:00; Stop 07/07/18 at 21:00; Status DC Clonazepam (KlonoPIN) 0.25 mg DAILY@1300 PO Last administered on 07/09/18at 14: 17; Start 07/08/18 at 13:00; Stop 07/09/18 at 21:00; Status DC Clonazepam (KlonoPIN) 0.25 mg HS PO Last administered on 07/11/18at 20:07; Start 07/10/18 at 21:00; Stop 07/12/18 at 09:00; Status DC Trazodone HCl (Desyrel) 50 mg QHS PO Last administered on 07/12/18at 20:24; Start 07/01/18 at 21:00; Stop 07/13/18 at 19:23; Status DC Trazodone HCl (Desyrel) 50 mg PRN QHS PRN PO INSOMNIA Last administered on at 20:25; Start 07/01/18 at 11:00; Stop 07/13/18 at 19:23; Status DC Mirtazapine (Remeron) 7.5 mg QHS PO Last administered on 07/11/18at 20:07; Start 07/07/18 at 21:00; Stop 07/12/18 at 16:35; Status DC Selenium Sulfide (Selsun Blue) 1 keri PRN DAILY PRN TP Dandruff; Start at 07:30 Mirtazapine (Remeron) 15 mg QHS PO Last administered on 07/15/18at 20:09; Start 07/12/18 at 21:00 Trazodone HCl (Desyrel) 100 mg PRN QHS PRN PO INSOMNIA Last administered on at 00:09; Start 07/13/18 at 19:30 Trazodone HCl (Desyrel) 100 mg QHS PO Last administered on 07/15/18at 20:09; Start 07/13/18 at 21:00 Melatonin 3 mg HS PO Last administered on 07/15/18at 20:11; Start 07/15/18 at 21:00 Active Scripts Active Reported Trazodone Hcl 100 Mg Tablet 1 Tab PO QHS Trazodone Hcl 100 Mg Tablet 1 Tab PO QHS PRN Zoloft (Sertraline Hcl) 50 Mg Tablet 1 Tab PO HS Zyprexa Zydis (Olanzapine) 5 Mg Tab.rapdis 2.5 Mg PO PRN Q2HR Remeron (Mirtazapine) 15 Mg Tablet 1 Tab PO QHS Melatonin 3 Mg Tablet 1 Tab PO QHS Sels[place] Blue (Salicylic Acid) 325 Ml Shampoo 1 Keri TP DAILY PRN Analgesic [place] (Methyl Salicylate/Menthol) 28 Gm Oint...g. 1 Keri TP QID PRN Milk Of Magnesia (Magnesium Hydroxide) 2,400 Mg/10 Ml Oral.susp 2,400 Mg PO HS PRN Maalox Advanced Suspension (Mag Hydrox/Aluminum Hyd/Simeth) 355 Ml Oral.susp 15 Ml PO PRN AFTMEALHC PRN Mapap (Acetaminophen) 325 Mg Tablet 650 Mg PO PRN Q4HRS PRN Nephro-Abel Tablet (Folic Acid/Vitamin B Comp W-C) 0.8 Mg Tablet 0.4 Mg PO DAILY Depakote Sprinkle (Divalproex Sodium) 125 Mg Cap.sprink 250 Mg PO BID Lisinopril 10 Mg Tablet 10 Mg PO DAILY Namenda (Memantine Hcl) 10 Mg Tablet 10 Mg PO BID Vitamin D3 (Cholecalciferol (Vitamin D3)) 2,000 Unit Tablet 2,000 Unit PO DAILY Aspirin 325 Mg Tablet 325 Mg PO DAILY Vitamin C (Ascorbic Acid) 500 Mg Tablet.er 500 Mg PO DAILY I have reviewed the current psychotropics carefully including drug interactions. Risk benefit ratio favors no change other than as noted in my dictated progress note. Diagnosis: Problems: (1) Impulse control disorder (2) Dementia, vascular, with depression (3) Dementia, vascular, with delusions (4) Dementia in Alzheimer's disease with depression (5) Dementia in Alzheimer's disease with delusions (6) Anxiety disorder CARRIE RAHMAN MD Jul 16, 2018 12:25
--- NOTE | 2018-07-16 23:33 | PN ---
DATE: 07/15/2018 PSYCHIATRIC PROGRESS NOTE This late entry 07/15/2018 covers elements not covered in my initial note. SUBJECTIVE: I met with the patient in the evening, staffed at treatment team meeting with the entire team in the morning. Review of the patient's history, progress, current treatment, and is back to [facility] on 07/16/2018. The patient slept 2-3/4 hours previous evening, somewhat irritable at times confused, but more redirectable, not aggressive or cursing. REVIEW OF SYSTEMS: Ambulation impaired, in wheelchair. No CV, , pulmonary, eye, ENT system symptoms on review. MENTAL STATUS EXAM: Oriented to himself. Insight, judgment, recent and remote memory, attention, concentration, fund of knowledge poor, consistent with his diagnosis mentioned in my initial note. IMPRESSION: Major neurocognitive disorder, Alzheimer, vascular with delusion, depression, behavioral disturbance; anxiety disorder . PLAN: Start melatonin 3 mg at bedtime to help with insomnia. Rest, no change from initial note. CARRIE RAHMAN MD DR: LEYLA/alexandra JOB#: [id number] / [id number]
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
== END 2018-07-16 11:15 | DRG 57 ==
LOC: ER 19:00 → GEROPSY 22:15
PROVIDERS: ADMIT Psychiatry & Neurology Psychiatry; ATTEND Psychiatry & Neurology Psychiatry
DX: G30.9 Alzheimer's disease, unspecified (principal); F02.81 Dementia in other diseases classified elsewhere, unspecified severity, with behavioral disturbance; F01.51 Vascular dementia, unspecified severity, with behavioral disturbance; N39.0 Urinary tract infection, site not specified; F63.9 Impulse disorder, unspecified; E11.9 Type 2 diabetes mellitus without complications; F41.9 Anxiety disorder, unspecified; F32.9 Major depressive disorder, single episode, unspecified; G47.00 Insomnia, unspecified; I10 Essential (primary) hypertension; I25.2 Old myocardial infarction; Z87.820 Personal history of traumatic brain injury; Z79.899 Other long term (current) drug therapy; Z98.2 Presence of cerebrospinal fluid drainage device; Z91.14 Patient's other noncompliance with medication regimen
CPT/HCPCS: 36415; 70450; 71045; 80048; 80053; 80061; 80076; 80164; 80307; 81001; 82306; 82550; 82607; 82947; 83036; 83540; 83550; 83690; 83735; 83880; 84443; 84484; 85025; 85610; 85651; 85730; 86592; 87086; 93005; 97116; 97530; 99285-25; G0479